=== PATIENT | female | born 1945 | race Caucasian/White ===

== ENCOUNTER 2020-11-06 11:01 | Outpatient (REF) | payer MEDICARE, SELFPAY ==
[2020-11-06 14:07] LABS: Basophils Percent Auto 0.7 % (0-2); Eosinophils Absolute Auto 0.2 X10*3/uL (0.0-0.4); Eosinophils Percent Auto 2.7 % (0-4); Hematocrit 41.5 % (37-47); Hemoglobin 13.2 g/dl (12.0-16.0); Imm Gran Abs Auto 0.01 X10*3/uL (0.00-0.03); Imm Gran Pct Auto 0.2 % (0.0-0.4); Lymphocytes Absolute Auto 1.2 X10*3/uL (1.2-4.9); MANUAL DIFF FLAG NO; Mean Corpuscular HGB Conc 31.8 g/dl (31.0-35.0); Mean Corpuscular Hemoglobin 31.7 pg (27.0-33.0); Mean Corpuscular Volume 99.8 fL (80-98); Mean Platelet Volume 11.7 fL (9.4-12.3); Monocytes Absolute Auto 0.4 X10*3/uL (0.1-1.2); Monocytes Percent Auto 7.8 % (2-11); Neutrophils Absolute Auto 3.8 X10*3/uL (2.0-8.3); Neutrophils Percent Auto 66.6 % (45-73); Platelet Count 201 X10*3/uL (160-400); Red Blood Count 4.16 X10*6/uL (4.20-5.50); Red Cell Distribution Width 13.1 % (11.0-16.0); White Blood Count 5.6 X10*3/uL (4.8-10.8)
[2020-11-06 14:13] LABS: Glucose Urine UA NEG (NEG); Leukocyte Esterase Urine NEG (NEG); Nitrite Urine NEG (NEG); PH 5.5 (5.0-8.0); Specific Gravity - Urine >= 1.030 (1.005-1.025); Urine Blood NEG (NEG); Urine Ketones NEG (NEG); Urine Protein NEG (NEG-TRACE)
[2020-11-06 14:16] LABS: Appearance Urine CLEAR; Color Urine YELLOW
[2020-11-06 14:22] LABS: Mucus Urine 1+ /LPF; RBC Urine 0-2 /HPF (0); WBC Urine 0 /HPF (0-4)
[2020-11-06 14:52] LABS: Alanine Aminotransferase 15 U/L (0-31); Albumin Level 3.9 g/dL (3.5-5.0); Alkaline Phosphatase 69 U/L (39-117); Anion Gap 11 (12-20); Aspartate Amino Transferase 24 U/L (5-31); Bilirubin Total 0.7 mg/dL (0.0-1.0); Blood Urea Nitrogen 27 mg/dL (9-16); Calcium 9.1 mg/dL (8.4-10.2); Carbon Dioxide 29 mmol/L (22-29); Chloride 106 mmol/L (96-108); Cholesterol 198 mg/dL; Estimated Glomerular Filt Rate > 60; Glucose Fasting 95 mg/dL (60-99); HDL Cholesterol 66 mg/dL; LDL Cholesterol Calculated 123 mg/dl; Potassium 4.7 mmol/L (3.3-5.1); Sodium 141 mmol/L (135-145); Total Protein 6.6 g/dL (6.5-8.0); Triglycerides 45 mg/dL
[2020-11-06 15:12] LABS: TSH reflex Free T4 0.86 uIU/mL (0.32-4.0); Vitamin D 25-OH Total 38.2 ng/mL (>30)
[2020-11-06 15:36] LABS: Folate 19.8 ng/mL (> or = 4.0); Vitamin B12 721 pg/mL (200-900)
== END 2020-11-06 11:02 | disposition home or self-care (01) ==
LOC: HO.HMGCLDS 11:01
PROVIDERS: PCP Internal Medicine; Visit Provider Internal Medicine
DX: E78.5 Hyperlipidemia, unspecified (principal); D51.9 Vitamin B12 deficiency anemia, unspecified; I73.00 Raynaud's syndrome without gangrene; D72.819 Decreased white blood cell count, unspecified; J30.9 Allergic rhinitis, unspecified; M51.36 Other intervertebral disc degeneration, lumbar region; M81.0 Age-related osteoporosis without current pathological fracture; I49.3 Ventricular premature depolarization; I49.1 Atrial premature depolarization
CPT/HCPCS: 36415; 80053; 80061; 81001; 82306; 82607; 82746; 84443; 85025

== ENCOUNTER → 2021-01-25 09:25 | Outpatient (BNVA) | payer MEDICARE, SELFPAY | PROVIDERS: PCP Internal Medicine; Referring Provider Internal Medicine; Visit Provider Internal Medicine | DX: I49.3 Ventricular premature depolarization (principal); I49.1 Atrial premature depolarization; Q21.1 Atrial septal defect | CPT/HCPCS: 93005; 99212 ==

== ENCOUNTER 2021-05-13 08:48 | Outpatient (REF) | payer MEDICARE, SELFPAY ==
--- NOTE | ~2021-05-13 | MM_ITS ---
EXAMINATION: MM SCREENING DIGITAL BREAST TOMOSYNTHESIS, BILATERAL CLINICAL INFORMATION: Screening. Asymptomatic. The lifetime risk of breast cancer based on the Tyrer-Cuzick Model is 2.5%. COMPARISON: Mammography: February 24, 2020 and studies dating back to June 30, 2012 TECHNIQUE: Digital breast tomosynthesis is performed in both the craniocaudal and mediolateral oblique views along with computer-aided detection (CAD). Synthesized 2D images are generated from the tomosynthesis. FINDINGS: The breasts are heterogeneously dense, which may obscure small masses (ACR BI-RADS breast composition Category c). There are no significant masses, abnormal calcifications, or other abnormalities. MM/MM tomosynthesis screening BI IMPRESSION: There are no significant changes from prior study. ASSESSMENT: BI-RADS 1: Negative RECOMMENDATION: Routine annual mammography screening. This patient's information was entered into a reminder system with a target due date for their next mammogram.
== END 2021-05-13 08:49 | disposition home or self-care (01) ==
LOC: HO.MAMMO 08:48
PROVIDERS: Visit Provider Internal Medicine
DX: Z12.31 Encounter for screening mammogram for malignant neoplasm of breast (principal)
CPT/HCPCS: 77063; 77067

== ENCOUNTER 2021-11-24 10:34 | Outpatient (REF) | payer MEDICARE, SELFPAY ==
[2021-11-24 11:40] LABS: MANUAL DIFF FLAG NO
[2021-11-24 11:47] LABS: Basophils Percent Auto 0.5 % (0-2); Eosinophils Absolute Auto 0.2 X10*3/uL (0.0-0.4); Eosinophils Percent Auto 4.2 % (0-4); Hematocrit 42.9 % (37.0-47.0); Hemoglobin 13.6 g/dl (12.0-16.0); Imm Gran Abs Auto 0.02 X10*3/uL (0.00-0.03); Imm Gran Pct Auto 0.5 % (0.0-0.4); Lymphocytes Percent Auto 24.1 % (20-40); Mean Corpuscular HGB Conc 31.7 g/dl (31.0-35.0); Mean Corpuscular Hemoglobin 31.4 pg (27.0-33.0); Mean Corpuscular Volume 99.1 fL (80.0-98.0); Mean Platelet Volume 10.7 fL (9.4-12.3); Monocytes Absolute Auto 0.3 X10*3/uL (0.1-1.2); Monocytes Percent Auto 7.4 % (2-11); Neutrophils Absolute Auto 2.7 x10*3/uL (2.0-8.3); Neutrophils Percent Auto 63.3 % (45-73); Platelet Count 214 X10*3/uL (160-400); Red Blood Count 4.33 X10*6/uL (4.20-5.50); Red Cell Distribution Width 13.2 % (11.0-16.0); White Blood Count 4.3 X10*3/uL (4.8-10.8)
[2021-11-24 12:20] LABS: TSH reflex Free T4 1.75 uIU/mL (0.32-4.0); Vitamin D 25-OH Total 32.2 ng/mL (>30)
[2021-11-24 12:30] LABS: Alanine Aminotransferase 19 U/L (0-31); Albumin Level 3.8 g/dL (3.5-5.0); Alkaline Phosphatase 61 U/L (39-117); Anion Gap 11 (12-20); Aspartate Amino Transferase 21 U/L (5-31); Bilirubin Total 0.4 mg/dL (0.0-1.0); Blood Urea Nitrogen 28 mg/dL (9-16); Calcium 9.3 mg/dL (8.4-10.2); Carbon Dioxide 29 mmol/L (22-29); Chloride 107 mmol/L (96-108); Cholesterol 217 mg/dL; Estimated Glomerular Filt Rate > 60; Glucose Fasting 101 mg/dL (60-99); HDL Cholesterol 67 mg/dL; LDL Cholesterol Calculated 144 mg/dl; Potassium 4.6 mmol/L (3.3-5.1); Sodium 142 mmol/L (135-145); Total Protein 6.8 g/dL (6.5-8.0); Triglycerides 33 mg/dL
[2021-11-24 12:38] LABS: Folate > 20.0 ng/mL (> or = 4.0); Vitamin B12 735 pg/mL (200-900)
[2021-11-24 14:09] LABS: Appearance Urine CLOUDY; Color Urine YELLOW; Glucose Urine UA NEG (NEG); Leukocyte Esterase Urine NEG (NEG); Nitrite Urine NEG (NEG); PH 5.5 (5.0-8.0); Specific Gravity - Urine >= 1.030 (1.005-1.025); Urine Blood NEG (NEG); Urine Ketones NEG (NEG); Urine Protein NEG (NEG-TRACE)
== END 2021-11-24 10:35 | disposition home or self-care (01) ==
LOC: HO.HMGCLDS 10:34
PROVIDERS: PCP Internal Medicine; Visit Provider Internal Medicine
DX: Z00.00 Encounter for general adult medical examination without abnormal findings (principal); E78.00 Pure hypercholesterolemia, unspecified; I10 Essential (primary) hypertension; E53.8 Deficiency of other specified B group vitamins; E55.9 Vitamin D deficiency, unspecified
CPT/HCPCS: 36415; 80053; 80061; 81003; 82306; 82607; 82746; 84443; 85025

== ENCOUNTER 2021-12-31 12:22 | Outpatient (REF) | payer MEDICARE, SELFPAY ==
--- NOTE | 2021-12-31 15:32 | MHC.AU.AEV ---
Adult Audiological Evaluation Date of Visit: 12/31/21 Reason for Appointment: Audiological evaluation due to concern for decreased hearing. Ms. Parish reports difficulties hearing and understanding speech in most situations. She notes that she has previously been diagnosed with a hearing loss and obtained hearing aids six or seven years ago. She notes that she hasn't used her hearing aids in a while and felt they weren't working well. She notes intermittent tinnitus which she describes as a whooshing sound that she notices several times a week. She notes that her ears feel blocked/full, which she feels may be related to her seasonal allergies. She notes occasional dizziness and feelings of being off-balance. Ms. 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 She notes that when uses hearing protection now when she uses power tools, cuts trees, or mows the lawn. Does patient feel they have a hearing loss?: Yes If Yes, Which Ear?: Both Ears When Was Hearing Difficulty First Noticed?: ~10 years ago Has hearing been tested previously?: Yes Previous Hearing Test Results: Patient believes that she was previously tested here, though records could not be located today. She has also had testing done at [facility] in [place], where she received her previous hearing aids. 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 Medical History: Medical History: Dizziness/Unsteadiness, Headache, Heart Problems, Measles, Migraines, Complete hysterectomy in 1995, Chronic leukopenia, Lumbar degenerative disc disease, Osteoporosis, Patent foramen ovale with atrial septal aneurysm, Premature atrial contractions, Premature ventricular contractions (PVCs), Pure hypercholesterolemia, Raynaud's syndrome, Vitamin B12 deficiency anemia, Vitamin D deficiency Allergies: Seasonal allergies Medication List: Aspirin, Vitamin D3, Vitamin B12, Metoprolol succinate, Tylenol, Clobetasol propionate ointment, estradiol cream Hearing Instrument History- Right/Left Ear: Audibel hearing aids obtained at [facility] in [place] six or seven years ago Otoscopy: Right Ear: Unremarkable Left Ear: Unremarkable Tympanometry: Tympanometry performed due to: To assess integrity of the middle ear system Right Ear: Normal Middle Ear System (Type A) Left Ear: Normal Middle Ear System (Type A) Hearing Evaluation: Transducer(s) Used: Insert Earphones, Bone Conduction Method: Conventional Audiometry Stimuli Used: Pure Tones Right Ear: Description of Hearing: Moderate to moderately-severe sensorineural hearing loss from 250-8000 Hz. Left Ear: Description of Hearing: Moderate to moderately-severe sensorineural hearing loss from 250-8000 Hz. Left ear slightly worse than the right by 15 dBHL at 4000 Hz and 10 dBHL at 6000 Hz. Speech Recognition Threshold (SRT): Method Used: Monitored Live Voice Stimuli Used: Spondee Words Right Ear: 45 dBHL Left Ear: 45 dBHL Interpretation of Results: Today's evaluation indicates moderate to moderately-severe sensorineural hearing loss bilaterally. Hearing loss of this degree is likely to impact communication, especially in adverse listening environments such as in background noise or at a distance. Ms. Parish would likely benefit from binaural amplification. Recommendations: Audiological re-evaluation in one year. Trial with amplification is recommended. Recommend Ms. Parish contact her health insurance company to determine if they offer any hearing aid coverage. Discussed hearing aids briefly. Welcomed to return for a hearing aid consultation if she decides she would like to pursue new hearing aids through our clinic. Diagnosis: Primary Diagnosis: H90.3 Bilateral Sensorineural Hearing Loss Services Performed: Comprehensive Audiological Evaluation (CPT 52974) Tympanometry (CPT 92460) Signature: Provider: Swetha Giraldo, [facility]
== END 2021-12-31 12:23 | disposition home or self-care (01) ==
LOC: HO.SH 12:22
PROVIDERS: Visit Provider Nurse Practitioner Family
DX: Z01.118 Encounter for examination of ears and hearing with other abnormal findings (principal); H90.3 Sensorineural hearing loss, bilateral
CPT/HCPCS: 92557; 92567

== ENCOUNTER 2022-01-13 12:35 | Outpatient (REF) | payer SELFPAY ==
--- NOTE | 2022-01-21 10:19 | MHC.AU.HAS ---
Hearing Aid Evaluation Date of Visit: 01/13/22 Historical Information: Description of Hearing: Moderate to moderately-severe sensorineural hearing loss bilaterally Summary: Patient is interested in pursuing hearing aids. She was seen at our clinic recently for an audiological evaluation on 12/31/2021. Hearing aid options were discussed. She would like a rechargeable product. She is also interested in Bluetooth capability and use of an new. Hearing Aid Prescription: Based on the individual?s shared listening needs, communication environments, dexterity, desire for connectivity, and personal preferences, the following prescription for amplification has been made: Right ear: Bioinformatics Software Engineer: ReSound Model: One 7 KAREN Battery Size: Rechargeable Color: Gold Stylist Apprentice: 1 MP Left ear: Bioinformatics Software Engineer: ReSound Model: One 7 KAREN Battery Size: Rechargeable Color: Gold Stylist Apprentice: 1 MP Action Taken/Action Needed: Hearing Instrument Fitting to be scheduled when materials arrive Primary Diagnosis: H90.3 Bilateral Sensorineural Hearing Loss Signature: Provider: Swetha Min, CCC-A
== END 2022-01-13 12:36 | disposition home or self-care (01) ==
LOC: HO.HAP 12:35
PROVIDERS: Visit Provider Internal Medicine
DX: Z46.1 Encounter for fitting and adjustment of hearing aid (principal); H90.3 Sensorineural hearing loss, bilateral
CPT/HCPCS: 92590; 92591

== ENCOUNTER 2022-02-24 12:38 | Outpatient (REF) | payer SELFPAY ==
--- NOTE | 2022-03-02 08:19 | MHC.AU.HFA ---
Hearing Instrument Fitting- Adult- Binaural Date of Visit: 02/24/22 Hearing Instruments Dispensed: Right Ear: Guest Service Supervisor: ReSound Model: One 7 [id number] KAREN Serial Number: [id number] Repair Warranty: 02/21/2025 Loss and Damage Warranty: 02/21/2025 Battery Size: Rechargeable Color: Gold Roads Superintendent: 1 MP Type of Dome: Small Open Left Ear: Guest Service Supervisor: ReSound Model: One 7 [id number] KAREN Serial Number: [id number] Repair Warranty: 02/21/2025 Loss and Damage Warranty: 02/21/2025 Battery Size: Rechargeable Color: Gold Roads Superintendent: 1 MP Type of Dome: Small Open Summary of Fitting: Feedback calibration run. Verifit performed and levels adjusted to better reach targets. Patient initially thought her voice was tinny. Lowered overall gain by 3 steps. Patient was pleased with the sound of the instruments. The patient has sharp bends to her ear canals, which point upward. It is difficult to maneuver the receivers into place. Impressions were taken bilaterally to try custom molds. Hearing aid care and maintenance were discussed and practiced. Hearing aids were paired to her phone. Patient was unable to download the new as she had forgotten her Apple password. She will look into her password at home, so we can download the new at the next visit. Recommendations: Patient has a hearing aid follow-up scheduled for 03/25/22. If the molds are not ready by then, we can ask the patient if she would still like to come in for the follow-up to address any other concerns, or if she would like to wait until Diagnosis Code(s): Primary Diagnosis: H90.3 Bilateral Sensorineural Hearing Loss Signature: Provider: Swetha Min, CCC-A
== END 2022-02-24 12:39 | disposition home or self-care (01) ==
LOC: HO.HAP 12:38
PROVIDERS: Visit Provider Internal Medicine
DX: Z46.1 Encounter for fitting and adjustment of hearing aid (principal); H90.3 Sensorineural hearing loss, bilateral
CPT/HCPCS: V5261; V5299

== ENCOUNTER → 2022-03-23 14:21 | Outpatient (BNVA) | payer MEDICARE, SELFPAY | PROVIDERS: PCP Internal Medicine; Visit Provider Internal Medicine | DX: I49.3 Ventricular premature depolarization (principal); I49.1 Atrial premature depolarization; Q21.1 Atrial septal defect | CPT/HCPCS: 93005; 99212 ==

== ENCOUNTER 2022-03-25 13:52 | Outpatient (REF) | payer MEDICARE, SELFPAY | END 2022-03-25 13:53 | disposition home or self-care (01) | LOC: HO.HAP 13:52 | PROVIDERS: Visit Provider Internal Medicine | DX: Z13.89 Encounter for screening for other disorder (principal) ==

== ENCOUNTER 2022-05-09 13:22 | Outpatient (REF) | payer SELFPAY ==
--- NOTE | 2022-05-09 14:25 | MHC.AU.HFU ---
Hearing Instrument Follow-Up- Binaural Date of Visit: 05/09/22 Right Ear: ReSound One 7 [id number] KAREN SN: [id number] Color: Gold Repair Warranty: 02/21/2025 Loss and Damage Warranty: 02/21/2025 Battery Size: Rechargeable Reservoir Engineering Manager: 1 MP Type of Mold: ReSound Slim Tip soft earmold with canal lock SN: [id number] Myra: 09/26/2022 Dispensed By: [facility] Date of Fittin02/24/2022 Left Ear: ReSound One 7 [id number] KAREN SN: [id number] Color: Gold Repair Warranty: 02/21/2025 Loss and Damage Warranty: 02/21/2025 Battery Size: Rechargeable Reservoir Engineering Manager: 1 MP Type of Mold: ReSound Slim Tip soft earmold with canal lock SN: [id number] Myra: 09/26/2022 Dispensed By: [facility] Date of Fittin02/24/2022 Follow-Up Summary: 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 Comfortable with no feedback in office. Bonny noted that the ear molds felt full in her ears but is motivated to acclimate to the physical change. She had some difficulty fully inserting the ear molds but did better with practice. Explained how to clean the ear molds and reviewed changing the wax guard. Advised of warranty period and to call if problems with comfort, fit, or retention arise. Recommendations: Hearing instrument maintenance in 6 months, or sooner if needed. Please contact our clinic with any questions or concerns. Diagnosis Code(s): Primary Diagnosis: H90.3 Bilateral Sensorineural Hearing Loss Signature: Provider: Rowena Chery, [facility]
== END 2022-05-09 13:23 | disposition home or self-care (01) ==
LOC: HO.HAP 13:22
PROVIDERS: Visit Provider Internal Medicine
DX: Z13.89 Encounter for screening for other disorder (principal)

== ENCOUNTER 2022-05-17 14:07 | Outpatient (REF) | payer MEDICARE, SELFPAY ==
--- NOTE | ~2022-05-17 | MM_ITS ---
EXAMINATION: MM SCREENING DIGITAL BREAST TOMOSYNTHESIS, BILATERAL CLINICAL INFORMATION: Screening. Asymptomatic. The lifetime risk of breast cancer based on the Tyrer-Cuzick Model is 3.6%. COMPARISON: Mammography: May 13, 2021 and studies dating back to September 29, 2015 TECHNIQUE: Digital breast tomosynthesis is performed in both the craniocaudal and mediolateral oblique views along with computer-aided detection (CAD). Synthesized 2D images are generated from the tomosynthesis. FINDINGS: The breasts are heterogeneously dense, which may obscure small masses (ACR BI-RADS breast composition Category c). There are no significant masses, abnormal calcifications, or other abnormalities. MM/MM tomosynthesis screening BI IMPRESSION: No significant changes ASSESSMENT: BI-RADS 1: Negative RECOMMENDATION: Routine annual mammography screening. This patient's information was entered into a reminder system with a target due date for their next mammogram.
== END 2022-05-17 14:08 | disposition home or self-care (01) ==
LOC: HO.MAMMO 14:07
PROVIDERS: PCP Internal Medicine; Visit Provider Internal Medicine
DX: Z12.31 Encounter for screening mammogram for malignant neoplasm of breast (principal)
CPT/HCPCS: 77063; 77067

== ENCOUNTER 2022-05-30 13:23 | Outpatient (REF) | payer SELFPAY ==
--- NOTE | 2022-05-30 14:24 | MHC.AU.HFU ---
Hearing Instrument Follow-Up- Binaural Date of Visit: 05/30/22 Right Ear: ReSound One 7 [id number] KAREN SN: [id number] Color: Gold Repair Warranty: 02/21/2025 Loss and Damage Warranty: 02/21/2025 Battery Size: Rechargeable Registered Pharmacy Technician: 1 MP Type of Mold: ReSound Slim Tip soft earmold with canal lock SN: [id number] Myra: 09/26/2022 Dispensed By: [facility] Date of Fittin02/24/2022 Left Ear: ReSound One 7 [id number] KAREN SN: [id number] Color: Gold Repair Warranty: 02/21/2025 Loss and Damage Warranty: 02/21/2025 Battery Size: Rechargeable Registered Pharmacy Technician: 1 MP Type of Mold: ReSound Slim Tip soft earmold with canal lock SN: [id number] Myra: 09/26/2022 Dispensed By: [facility] Date of Fittin02/24/2022 Follow-Up Summary: Bonny reported that she has been having difficulty inserting the right ear mold. She is never confident that it is in properly. Practiced insertion in office and able to successfully insert both ear molds. Bonny noted that the overall comfort of the molds as well as sound quality are good; however, she has some concerns as the ear molds feel martínez in her ears compared to the domes. Advised remake warranty until 09/26/2022 if issues with fit or comfort arise and discussed switching back to domes. Bonny reported that she wants to try to continue to acclimate to feeling of the molds for now. Also re-paired the hearing aids to her cell phone at her request as they somehow became disconnected. Recommendations: Bonny will call if problems with the ear molds persist. Diagnosis Code(s): Primary Diagnosis: H90.3 Bilateral Sensorineural Hearing Loss Signature: Provider: Rowena Chery, [facility]
== END 2022-05-30 13:24 | disposition home or self-care (01) ==
LOC: HO.HAP 13:23
PROVIDERS: Visit Provider Internal Medicine
DX: Z13.89 Encounter for screening for other disorder (principal)

== ENCOUNTER 2022-11-28 12:05 | Outpatient (REF) | payer MEDICARE, SELFPAY ==
[2022-11-28 13:52] LABS: MANUAL DIFF FLAG NO
[2022-11-28 13:54] LABS: Appearance Urine Clear; Color Urine Yellow; Glucose Urine UA Negative (Negative); Leukocyte Esterase Urine Trace (Negative); Nitrite Urine Negative (Negative); PH 5.5 (5.0-9.0); UMIC TRIGGER UACC YES; Urine Blood Negative (Negative); Urine Ketones Negative (Negative); Urine Protein Negative (Neg-Trace)
[2022-11-28 13:58] LABS: Bacteria Urine None Seen (None Seen); Hyaline Casts Urine 0-2 /LPF (0-2); Squamous Epithelial Cell Urine 0-2 /HPF (0-2); WBC Urine 0-5 /HPF (0-5)
[2022-11-28 13:58] LABS: Basophils Percent Auto 0.9 % (0-2); Eosinophils Absolute Auto 0.1 X10*3/uL (0.0-0.4); Eosinophils Percent Auto 3.3 % (0-4); Hematocrit 41.6 % (37.0-47.0); Hemoglobin 13.1 g/dl (12.0-16.0); Imm Gran Abs Auto 0.01 X10*3/uL (0.00-0.03); Imm Gran Pct Auto 0.2 % (0.0-0.4); Lymphocytes Absolute Auto 1.1 X10*3/uL (1.2-4.9); Lymphocytes Percent Auto 26.3 % (20-40); Mean Corpuscular HGB Conc 31.5 g/dl (31.0-35.0); Mean Corpuscular Hemoglobin 31.6 pg (27.0-33.0); Mean Corpuscular Volume 100.5 fL (80.0-98.0); Mean Platelet Volume 10.7 fL (9.4-12.3); Monocytes Absolute Auto 0.4 X10*3/uL (0.1-1.2); Monocytes Percent Auto 8.2 % (2-11); Neutrophils Absolute Auto 2.6 x10*3/uL (2.0-8.3); Neutrophils Percent Auto 61.1 % (45-73); Platelet Count 211 X10*3/uL (160-400); Red Blood Count 4.14 X10*6/uL (4.20-5.50); Red Cell Distribution Width 13.3 % (11.0-16.0); White Blood Count 4.3 X10*3/uL (4.8-10.8)
[2022-11-28 14:13] LABS: Alanine Aminotransferase 28 U/L (0-31); Albumin Level 3.7 g/dL (3.5-5.0); Alkaline Phosphatase 56 U/L (39-117); Anion Gap 9 (12-20); Aspartate Amino Transferase 27 U/L (5-31); Bilirubin Total 0.5 mg/dL (0.0-1.0); Blood Urea Nitrogen 21 mg/dL (9-16); Carbon Dioxide 28 mmol/L (22-29); Chloride 108 mmol/L (96-108); Cholesterol 219 mg/dL; Estimated Glomerular Filt Rate > 60; Glucose Fasting 94 mg/dL (60-99); HDL Cholesterol 65 mg/dL; LDL Cholesterol Calculated 147 mg/dl; Magnesium 2.2 mg/dL (1.6-2.6); Potassium 4.1 mmol/L (3.3-5.1); Sodium 141 mmol/L (135-145); Total Protein 6.2 g/dL (6.5-8.0); Triglycerides 39 mg/dL
[2022-11-28 14:43] LABS: TSH reflex Free T4 1.62 uIU/mL (0.32-4.0); Vitamin B12 1087 pg/mL (200-900); Vitamin D 25-OH Total 39.6 ng/mL (>30)
== END 2022-11-28 12:06 | disposition home or self-care (01) ==
LOC: HO.HMGCLDS 12:05
PROVIDERS: PCP Internal Medicine; Visit Provider Internal Medicine
DX: E78.00 Pure hypercholesterolemia, unspecified (principal); E83.42 Hypomagnesemia; E55.9 Vitamin D deficiency, unspecified; I10 Essential (primary) hypertension; E53.8 Deficiency of other specified B group vitamins; R30.0 Dysuria
CPT/HCPCS: 36415; 80053; 80061; 81001; 82306; 82607; 82746; 83735; 84443; 85025

== ENCOUNTER 2022-12-28 08:59 | Outpatient (REF) | payer MEDICARE, SELFPAY ==
--- NOTE | ~2022-12-28 | MM_ITS ---
EXAMINATION: BONE DENSITOMETRY CLINICAL INDICATION: Menopause. COMPARISON: Previous BD dated 07/25/2019 and baseline BD dated 03/10/2008. TECHNIQUE: Using a [employer] DXA System (software version: 13.1) manufactured by [employer], dual-energy x-ray absorptiometry was performed of the lumbar spine and left hip. The images are of good technical quality. Summary results are attached. FINDINGS: AP SPINE L1-L3 (excluding L4): The data of L1-L4 has been changed to exclude the L4 vertebral body, because degenerative changes at this level may cause overestimation of lumbar spine density. Current: BMD 0.818 g/cm2, Z-score -0.7, T-score -2.9, osteoporosis, 10.6% decrease from previous, 28.7% decrease from baseline (<5% change is not significant). Prior: BMD 0.915 g/cm2. Baseline: BMD 1.148 g/cm2. LEFT FEMUR, NECK: Current: BMD 0.655 g/cm2, Z-score -0.5, T-score -2.8, osteoporosis. Prior: BMD 0.698 g/cm2. Baseline: BMD 0.795 g/cm2. LEFT FEMUR, TOTAL: Current: BMD 0.563 g/cm2, Z-score -1.4, T-score -3.5, osteoporosis, 6.9% decrease from previous, 25.5% decrease from baseline (<5% change is not significant). Prior: BMD 0.605 g/cm2. Baseline: BMD 0.756 g/cm2. IDENTIFIED RISK FACTORS: Early menopause, height loss, hysterectomy, bilateral oophorectomy, low calcium intake, secondary osteoporosis. HISTORY OF FRACTURE: None listed. MEDICATIONS: Vitamin D. MM/XR DEXA axial skeleton IMPRESSION: 1. DIAGNOSIS: Osteoporosis based on the lowest T-score value of -3.5 in the total femur applying World Health Organization criteria. 2. 10-YEAR FRACTURE RISK PREDICTION, FRAX: According to the guidelines, FRAX calculation should only be performed on patients in the osteopenia bone density category. Therefore, FRAX was not performed on this patient. 3. Treatment Recommendations: NOF guidelines recommend consideration for treatment in postmenopausal women and men age 50 and older presenting with the following: -A hip or vertebral (clinical or morphometric) fracture. -T-score less than or equal to -2.5 at the femoral neck or spine after appropriate evaluation to exclude secondary causes. -Low bone mass at the hip or spine and a 10-year fracture probability by FRAX of greater than or equal to 3% for hip fracture or greater than or equal to 20% for major osteoporotic fracture based on the [place] adapted WHO algorithm. 4. Other Recommendations: All treatment decisions require clinical judgment and consideration of individual patient factors, including patient preferences, comorbidities, previous drug use, risk factors not captured in the FRAX model (e.g. frailty, falls, vitamin D deficiency, increased bone turnover, interval significant decline in bone density) and possible under or overestimation of fracture risk by FRAX. Additional medical evaluation for secondary cause of low bone mineral density may be appropriate. FUTURE SCAN RECOMMENDATION: People with diagnosed cases of osteoporosis or at high risk for fracture should have regular bone mineral density tests. For patients eligible for Medicare, routine testing is allowed once every 2 years. The testing frequency can be increased to one year for patients who have rapidly progressing disease, those who are receiving or discontinuing medical therapy to restore bone mass, or have additional risk factors.
== END 2022-12-28 09:00 | disposition home or self-care (01) ==
LOC: HO.MAMMO 08:59
PROVIDERS: PCP Internal Medicine; Visit Provider Internal Medicine
DX: M81.0 Age-related osteoporosis without current pathological fracture (principal); Z78.0 Asymptomatic menopausal state
CPT/HCPCS: 77080

== ENCOUNTER → 2023-03-13 08:13 | Outpatient (REF) | payer MEDICARE, SELFPAY ==
--- NOTE | 2023-03-13 08:16 | HM_ITS ---
* Total monitoring time about 3 days. * Underlying rhythm is sinus. Average ventricular rate 71/Min. Range 54 to 107/Min. * Rare supraventricular ectopy with low burden. * Extremely rare ventricular ectopy. * No significant pauses or AV blocks. * No patient markers are events in diary. MTDD
== END ==
LOC: HO.CARD 08:13
PROVIDERS: PCP Internal Medicine; Visit Provider Internal Medicine
DX: I49.3 Ventricular premature depolarization (principal)
CPT/HCPCS: 93242

== ENCOUNTER → 2023-03-13 08:16 | Outpatient (BNV) | payer MEDICARE, SELFPAY | PROVIDERS: PCP Internal Medicine; Visit Provider Internal Medicine | DX: I47.1 Supraventricular tachycardia (principal) | CPT/HCPCS: 93244 ==

== ENCOUNTER 2023-03-29 14:01 | Outpatient (AMB) | payer MEDICARE, SELFPAY ==
[2023-03-29 14:08] VITALS: BP 106/64; PULSE 66; BMI 18.6
--- NOTE | 2023-03-29 14:08 | A.OFFVIS_ITS ---
Intake Vital Signs 03/29/23 14:08 Height 5 ft 4 in Weight 108 lb 7.479 oz BMI 18.6 BP 106/64 Blood Pressure Location Lt brachial Position Sitting Pulse 66 Intake Visit Reasons: 1 year follow up, after holter monitor Intake Note: 1 year follow up w/ EKG Research Spec Required: No Accompanied by: Self / Same As Patient Allergies No Known Allergies Allergy (Verified 03/29/23 14:10) Medication List - Last Reconciled 03/29/23 by Robbie Meeks MD acetaminophen 500 mg PO Q6H PRN alendronate 70 mg PO QWEEK aspirin 81 mg PO DAILY cholecalciferol (vitamin D3) 25 mcg PO DAILY clobetasol 0.05% 1 appl topical DAILY estradiol 0.01%(0.1mg/gram) 1 g vaginal 2XW metoprolol succinate ER 25 mg PO DAILY HPI HPI Comments History of Present Illness Details Bonny returns for follow-up regarding palpitations. In the past, she had bigeminy based on EKG from a local urgent care. She is on a small dose of beta-blockers and has been doing well. Since last seen, she has not had any palpitations or chest pain or shortness of breath or in fact anything cardiac sounding. COUNTS INCLUDE 234 BEDS AT THE [facility] Medical History Allergic rhinitis Chronic leukopenia Lumbar degenerative disc disease Normal colonoscopy (~11/06/18) Osteoporosis Patent foramen ovale with atrial septal aneurysm Premature atrial contractions Premature ventricular contractions (PVCs) (VPCs) Pure hypercholesterolemia Raynaud's syndrome Vitamin B12 deficiency anemia Vitamin D deficiency Surgical History History of total hysterectomy History of removal of cyst History of hand surgery Family History Father No problems noted. Mother No problems noted. Social History Housing: House Alcohol intake: former Patient Tobacco Use Status: Never used Tobacco e-Cigarette/Vaping Use: Never Used Second Hand Smoke Exposure: No service: No Current occupational status: retired Cognitive needs: No Hearing needs: No Vision needs: No Review of Systems Const Denies chills, Denies fatigue, Denies fever(s), Denies frequent falls, Denies weakness, Denies weight gain and Denies weight loss ENT Denies dizziness Card Denies chest pain, Denies leg edema, Denies lightheadedness, Denies palpitations, Denies dyspnea, Denies dyspnea on exertion, Denies orthopnea and Denies other (Loss of consciousness) Resp Denies cough, Denies dyspnea and Denies dyspnea on exertion GI Denies hematochezia and Denies change in bowel habits Musc Denies abnormal gait, Denies muscle weakness, Denies numbness, Denies radiating pain into limb and Denies tingling Neuro Denies abnormal gait, Denies dizziness, Denies frequent falls, Denies numbness, Denies tingling and Denies weakness Endo Denies fatigue and Denies palpitations Physical Exam Vital Signs: Last Vital Signs Pulse 66 03/29/23 14:08 BP 106/64 03/29/23 14:08 BMI result Body Mass Index 18.6 Const General: comfortable and no acute distress Orientation/consciousness: patient oriented x3 HEENT Other: Unremarkable Head: Yes normal to inspection Neck Neck: Yes normal visual inspection Chest Chest palpation & inspection: normal inspection of the chest Resp Auscultation: clear to auscultation bilaterally Cardio Palpation: normal PMI Heart sounds: S1 normal heart sound present, S2 normal heart sound present, no gallops, no murmurs and no rubs GI Palpation (GI): Soft to palpation Back/Spine/Pelvis Other: unremarkable Skin General skin exam: no rashes or lesions noted Neuro General: patient oriented x3 Extrem General: Yes normal to inspection Psych Mental Status: mental status grossly normal Office Procedures EKG Details: EKG with sinus rhythm at 66/Min; premature supraventricular complexes with possible aberrant conduction; [place]. [id number], Complete Assessment & Plan Assessment & Plan (1) Premature ventricular contractions (PVCs) (VPCs): Code(s): I49.3 - Ventricular premature depolarization (2) Premature atrial contractions: Code(s): I49.1 - Atrial premature depolarization (3) Patent foramen ovale with atrial septal aneurysm: Code(s): Q21.1 - Atrial septal defect Plan Cardiac studies reviewed. Echocardiogram 2019 with normal LVEF, normal diastolic function; no significant valvular pathology; interatrial septal aneurysm with patent foramen ovale/right to left shunt. Myocardial perfusion imaging study 2018 shows normal perfusion. Cardiac event monitoring showed evidence of underlying sinus rhythm, premature atrial as well as ventricular contractions and very short runs of NSVT. Holter had shown isolated supraventricular ventricular ectopy. Most recent Holter also shows underlying sinus rhythm with very rare ectopy. Overall, may continue beta-blockers without changes with regard to the ectopy. With regard to the atrial septal aneurysm and PFO, can remain on low-dose aspirin. She will call us with ongoing concerns. Medications: Changed From alendronate To be taken first thing in the morning on an empty stomach with a full glass of water; patient has to stay upright for at least the next 30 minutes and should not eat or drink anything else for 30 to 60 minutes after taking the medication 70 mg PO QWEEK 13 tabs 1RF 3 months To alendronate To be taken first thing in the morning on an empty stomach with a full glass of water; patient has to stay upright for at least the next 30 minutes and should not eat or drink anything else for 30 to 60 minutes after taking the medication 70 mg PO QWEEK Coding Level of Care Code Est Pt Level 3 (43805) Diagnoses Premature ventricular contractions (PVCs) (VPCs) I49.3 Premature atrial contractions I49.1 Patent foramen ovale with atrial septal aneurysm Q21.1 CPT Codes EKG - CPT: 19205-[id number], Complete ([id number])
== END 2023-03-29 14:41 | disposition home or self-care (01) ==
PROVIDERS: PCP Internal Medicine; Referring Provider Internal Medicine; Visit Provider Internal Medicine
DX: I49.3 Ventricular premature depolarization (principal); I49.1 Atrial premature depolarization; Q21.10 Atrial septal defect, unspecified
CPT/HCPCS: 93010; 99213

== ENCOUNTER → 2023-03-29 14:01 | Outpatient (BNVA) | payer MEDICARE, SELFPAY | PROVIDERS: PCP Internal Medicine; Referring Provider Internal Medicine; Visit Provider Internal Medicine | DX: I49.3 Ventricular premature depolarization (principal); I49.1 Atrial premature depolarization; Q21.10 Atrial septal defect, unspecified; Q21.12 Patent foramen ovale | CPT/HCPCS: 93005; 99212 ==

== ENCOUNTER 2023-06-13 14:17 | Outpatient (AMB) | payer MEDICARE, SELFPAY ==
[2023-06-13 14:20] VITALS: BP 100/68; PULSE 72; O2SAT 96; BMI 18.4
--- NOTE | 2023-06-13 14:20 | A.OFFPC_ITS ---
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 Accompanied by: Self / Same As Patient Allergies No Known Allergies Allergy (Verified 06/13/23 15:25) Medication List - Last Reconciled 06/13/23 by Elie Eid MD acetaminophen 500 mg PO Q6H PRN alendronate 70 mg PO QWEEK aspirin 81 mg PO DAILY cholecalciferol (vitamin D3) 25 mcg PO DAILY clobetasol 0.05% 1 appl topical DAILY estradiol 0.01%(0.1mg/gram) 1 g vaginal 2XW metoprolol succinate ER 25 mg PO DAILY Tobacco use date assessed: 06/13/23 Fall risk assessment: No Falls in past year Last assessed Fall Risk: 06/13/23 Dental Screening Dental Screen Date: 06/13/23 Did you have a dental visit in the last 12 months?: Yes Did you have a dental problem in the last 6 months where you did not have access to dental care?: No Was dental information given to patient?: Patient has dentist HPI osteoporosis, hyperlipidemia, PACs HPI Details Patient comes in today for her follow up visit States that she currently feels okay Was started on Alendronate back in late December 2022 and she has been tolerating her Rx well Was referred to Dr. Paz for endocrinology consultation and states that she had some additional work ups as well as a 24-hour urine collection done recently and will be seeing Dr. Paz again in July 2023 for her next follow up visit with him She denies any headaches or dizziness Denies any chest pains, no SOB No nausea/vomiting, no abdominal pain No change in bowel habits noted She was also seen by caridology for follow up a couple of months ago and was advised to just follow up with them on an as needed basis from now on [facility] Medical History Allergic rhinitis Chronic leukopenia Vitamin B12 deficiency anemia Raynaud's syndrome Vitamin D deficiency Osteoporosis Lumbar degenerative disc disease Patent foramen ovale with atrial septal aneurysm Premature atrial contractions Premature ventricular contractions (PVCs) (VPCs) Pure hypercholesterolemia Normal colonoscopy (~11/06/18) Surgical History History of total hysterectomy History of removal of cyst History of hand surgery Family History Father No problems noted. Mother No problems noted. Social History Housing: House Alcohol intake: former Patient Tobacco Use Status: Never used Tobacco e-Cigarette/Vaping Use: Never Used Second Hand Smoke Exposure: No service: No Current occupational status: retired Cognitive needs: No Hearing needs: No Vision needs: No Questionnaire PHQ-9 Over the last 2 weeks, how often have you been bothered by any of the following problems? 1. Little interest or pleasure in doing things: not at all 2. Feeling down, depressed, or hopeless: not at all 3. Trouble falling or staying asleep, or sleeping too much: not at all 4. Feeling tired or having little energy: not at all 5. Poor appetite or overeating: not at all 6. Feeling bad about yourself - or that you are a failure or have let yourself or your family down: not at all 7. Trouble concentrating on things, such as reading the newspaper or watching television: not at all 8. Moving or speaking so slowly that other people could have noticed. Or the opposite - being so fidgety or restless that you have been moving around a lot more than usual: not at all 9. Thoughts that you would be better off or of hurting yourself in some way: not at all Total score: 0 Depression Screening Interpretation: Negative Depression Screening Done: Yes 65731 - PHQ-9 Billing: Yes Source: Developed by Drs. Gilles Chavez, Amber Villanueva, Dorian Geronimo and colleagues, with an educational magali from [employer]. Thrive Questionnaire Date Thrive assessed: 06/13/23 I am a: Patient What is your living situation today?: I have a steady place to live Within the past 12 months, did the food you bought not last and you didn't have the money to get more?: Never true Within the past 12 months, did you worry whether your food would run out before you got money to buy more?: Never true Do you have trouble paying for medicines?: No Do you have trouble getting transportation to medical appointments?: No Do you have trouble paying your heating and electricity bill?: No Do you have trouble taking care of your child, family member or friend?: No Do you have trouble with day-to-day activities such as bathing, preparing meals, shopping, managing finances, etc.?: No Are you currently unemployed and looking for a job?: No Are you interested in more education?: No Please select the resources that you would like help with: None Currently or been in a relationship where the following occur: no concerns reported AUDIT C Alcohol Use Questionnaire (AUDIT-C) 1. How often do you have a drink containing alcohol?: Never Total Score: 0 Score Reviewed/Action Taken: Yes TONY-7 AMB Questionnaire TONY-7 Date TONY - 7 assessed: 06/13/23 Feeling nervous, anxious, or on edge: 0 = Not at all Not being able to stop or control worryin = Not at all Worrying too much about different things: 0 = Not at all Trouble relaxin = Not at all Being so restless that it is hard to sit still: 0 = Not at all Becoming easily annoyed or irritable: 0 = Not at all Feeling afraid as if something awful might happen: 0 = Not at all Total TONY-7 score (0-4 normal; 5-9 mild; 10-14 moderate; 15-21 severe): 0 Source: Developed by Drs. Gilles Chavez, Amber Villanueva, Dorian Geronimo and colleagues, with an educational magali from [employer]. Review of Systems Const Denies chills, Denies fatigue, Denies fever(s) and Denies headache(s) ENT Denies dysphagia, Denies dizziness, Denies otalgia, Denies headache(s), Denies neck pain, Denies odynophagia and Denies sore throat Card Denies chest pain, Denies rapid heart rate, Denies irregular heart rhythm, Denies palpitations and Denies dyspnea Resp Denies cough, Denies dyspnea and Denies wheezing GI Denies abdominal pain, Denies constipation, Denies dysphagia, Denies heartburn, Denies diarrhea, Denies nausea, Denies odynophagia and Denies vomiting Denies hematuria, Denies urinary frequency, Denies dysuria, Denies urinary incontinence and Denies urinary urgency Musc Reports back pain (on and off over the lower back), Denies arthralgias and Denies neck pain Skin/Breast Denies rash Neuro Denies dizziness, Denies headache(s) and Denies paresthesias Psych Denies anxiety and Denies depression Endo Denies fatigue and Denies palpitations Tenzin/Lymph Denies easy bruising Aller/Immun Denies wheezing Physical exam (Primary Care) Vital Signs: Last Vital Signs Pulse 72 06/13/23 14:20 BP 100/68 06/13/23 14:20 Pulse Ox 96 06/13/23 14:20 Oxygen Delivery Method Room Air 06/13/23 14:20 BMI result Body Mass Index 18.4 Tobacco/Smoking Status: Tobacco use Status Tobacco use date assessed 06/13/23 06/13/23 14:24 Patient Tobacco Use Status Never used Tobacco 06/13/23 14:24 e-Cigarette/Vaping Use Never Used 06/13/23 14:24 PHQ-9: PHQ-9 Score PHQ-9: Total score 0 06/13/23 15:19 Depression Screening Interpretation: Negative Thrive Assessment: Date of Thrive Assessment Date Thrive assessed 06/13/23 06/13/23 14:24 Currently or been in a relationship where the following occur: no concerns reported Const General: no acute distress and alert HENMT Ears: TM's normal bilaterally and EAC's normal Throat: Yes posterior oropharynx normal and Yes tonsils normal (no TP congestion) Neck Neck: Yes no lymphadenopathy and Yes supple Thyroid: Thyroid normal Resp Auscultation: clear to auscultation bilaterally, no rales and no wheezes Cardio Rate: regular rate Rhythm: regular rhythm Heart sounds: no murmurs GI Palpation (GI): Soft to palpation and nontender Auscultation: normal bowel sounds General: Yes no CVA tenderness Back/Spine/Pelvis Back: no CVA tenderness Thoracic/Lumbar Spine: lumbar spinal tenderness Skin Rashes: no rashes Extrem General: Yes no clubbing, cyanosis or edema Assessment and Plan Assessment & Plan (1) Pure hypercholesterolemia: Code(s): E78.00 - Pure hypercholesterolemia, unspecified Plan: She has no follow up labs done/ordered for her visit today but is reminded that her LDL cholesterol was still elevated on her previous labs at 147 mg/dl a few months ago Reinforced low cholesterol diet - patient is a vegetarian; still does not wish to start on statins to help lower her cholesterol levels Will recheck her labs and fasting lipids in 6 months for follow up (2) Premature ventricular contractions (PVCs) (VPCs): Code(s): I49.3 - Ventricular premature depolarization Plan: Stable/controlled on low dose Metoprolol Echocardiogram done in December 2019 showed no significant abnormalities Repeat Holter monitor done back in February 2023 came out normal Was reportedly advised at her recent cardiology follow-up visit that she can just see cardiology as needed and does not need to continue following up with them regularly from now on (3) Premature atrial contractions: Code(s): I49.1 - Atrial premature depolarization Plan: Controlled on Metoprolol ER 25 mg QD (4) Patent foramen ovale with atrial septal aneurysm: Code(s): Q21.1 - Atrial septal defect Plan: Echocardiogram done on 11/09/2017 showed the presence of an interatrial septal aneurysm with a PFO Cardiac valvular dopplers and RVSP were all normal LVEF between 60-65% with no wall motion abnormalities noted.? 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 to help manage her back pain (6) Osteoporosis: Code(s): M81.0 - Age-related osteoporosis without current pathological fracture Qualifiers: Osteoporosis type: age-related Presence of current pathological fra cture: without current pathological fracture Qualified Code(s): M81.0 - Age- related osteoporosis without current pathological fracture Plan: Repeat BMD done in December 2022 showed a significant decline in her BMD from previous in July 2019, and her T-score is now at -3.5 She was started on Alendronate 70 mg Q week back then and she has been tolerating her Rx so far She was also referred to endocrinology and is now seeing Dr. Paz for further management Fall precautions reinforced Patient reminded to continue oral calcium and vitamin-D supplements daily and exercise regularly and stay active She is requesting for a repeat BMD in 1 year for follow up if possible - advised that we can try to order it at her next appt but there is no guarantee that insurance will approve it this soon (7) Vitamin D deficiency: Code(s): E55.9 - Vitamin D deficiency, unspecified Plan: Continue Vitamin D3 1000 units QD (8) Raynaud's syndrome: Code(s): I73.00 - Raynaud's syndrome without gangrene Qualifiers: Raynaud?s-associated gangrene presence: without gangrene Qualified Code(s): I73.00 - Raynaud's syndrome without gangrene Plan: Reinforced avoidance of extremes of temperature (especially cold) to minimize her symptoms (9) Vitamin B12 deficiency anemia: Code(s): D51.9 - Vitamin B12 deficiency anemia, unspecified Qualifiers: Vitamin B12 deficiency anemia type: unspecified B12 deficiency Qualified Code(s): D51.9 - Vitamin B12 deficiency anemia, unspecified Plan: Corrected; patient has been instructed to HOLD her Vitamin B12 supplement 1000 mcg QD for now as her Vitamin B12 level was over 1000 at her last blood test done a few months ago (10) Chronic leukopenia: Code(s): D72.819 - Decreased white blood cell count, unspecified Plan: Stable - will continue to monitor regularly (11) Allergic rhinitis: Code(s): J30.9 - Allergic rhinitis, unspecified Qualifiers: Allergic rhinitis seasonality: unspecified Allergic rhinitis trigger: unspecified Qualified Code(s): J30.9 - Allergic rhinitis, unspecified Plan: Continue OTC Loratadine 10 mg or Fexofenadine 180 mg QD PRN Plan Follow up in 6 months Orders: Orders Complete Blood Count Auto Diff 6 Months I49.1 - Atrial premature depolarization, I49.3 - Ventricular premature depolarization Comprehensive [place]. Panel Fast 6 Months E78.00 - Pure hypercholesterolemia, unspecified Lipid Panel 6 Months E78.00 - Pure hypercholesterolemia, unspecified UA CC w/rflx Micro + Cult 6 Months R30.0 - Dysuria TSH reflex Free T4 6 Months E78.00 - Pure hypercholesterolemia, unspecified Vitamin D 25-OH Total 6 Months E55.9 - Vitamin D deficiency, unspecified Vitamin B12 and Folate 6 Months E53.8 - Deficiency of other specified B group vitamins Coding Level of Care Code Est Pt Level 4 (11264) Diagnoses Pure hypercholesterolemia E78.00 Premature ventricular contractions (PVCs) (VPCs) I49.3 Premature atrial contractions I49.1 Patent foramen ovale with atrial septal aneurysm Q21.1 Lumbar degenerative disc disease M51.36 Age-related osteoporosis without current pathological fracture M81.0 Osteoporosis type: age-related Presence of current pathological fracture: without current pathological fracture Vitamin D deficiency E55.9 Raynaud's disease without gangrene I73.00 Raynaud?s-associated gangrene presence: without gangrene Anemia due to vitamin B12 deficiency, unspecified B12 deficiency type D51.9 Vitamin B12 deficiency anemia type: unspecified B12 deficiency Chronic leukopenia D72.819 Allergic rhinitis, unspecified seasonality, unspecified trigger J30.9 Allergic rhinitis seasonality: unspecified Allergic rhinitis trigger: unspecified
== END 2023-06-13 15:26 | disposition home or self-care (01) ==
PROVIDERS: Visit Provider Internal Medicine
DX: E78.00 Pure hypercholesterolemia, unspecified (principal); I49.3 Ventricular premature depolarization; I49.1 Atrial premature depolarization; Q21.10 Atrial septal defect, unspecified; M51.36 Other intervertebral disc degeneration, lumbar region; M81.0 Age-related osteoporosis without current pathological fracture; E55.9 Vitamin D deficiency, unspecified; I73.00 Raynaud's syndrome without gangrene; D51.9 Vitamin B12 deficiency anemia, unspecified; D72.819 Decreased white blood cell count, unspecified; J30.9 Allergic rhinitis, unspecified
CPT/HCPCS: 99214

== ENCOUNTER 2023-06-16 07:46 | Outpatient (REF) | payer MEDICARE, SELFPAY | END 2023-06-16 07:47 | disposition home or self-care (01) | LOC: HO.MAMMO 07:46 | PROVIDERS: PCP Internal Medicine; Visit Provider Internal Medicine | DX: Z12.31 Encounter for screening mammogram for malignant neoplasm of breast (principal) | CPT/HCPCS: 77063; 77067 ==

== ENCOUNTER → 2023-06-16 08:00 | Outpatient (BNV) | payer MEDICARE, SELFPAY | PROVIDERS: PCP Internal Medicine; Visit Provider Radiology Diagnostic Radiology | DX: Z12.31 Encounter for screening mammogram for malignant neoplasm of breast (principal) | CPT/HCPCS: 77063; 77067 ==

== ENCOUNTER 2023-12-05 10:22 | Outpatient (REF) | payer MEDICARE, SELFPAY ==
[2023-12-05 13:07] LABS: MANUAL DIFF FLAG NO
[2023-12-05 13:24] LABS: Appearance Urine Clear; Color Urine Yellow; Glucose Urine UA Negative (Negative); Leukocyte Esterase Urine Negative (Negative); Nitrite Urine Negative (Negative); Specific Gravity - Urine 1.015 (1.005-1.025); Urine Blood Negative (Negative); Urine Ketones Negative (Negative); Urine Protein Negative (Neg-Trace)
[2023-12-05 13:32] LABS: Basophils Percent Auto 0.9 % (0-2); Eosinophils Absolute Auto 0.2 X10*3/uL (0.0-0.4); Eosinophils Percent Auto 4.3 % (0-4); Hematocrit 40.2 % (37.0-47.0); Hemoglobin 12.9 g/dl (12.0-16.0); Imm Gran Abs Auto 0.01 X10*3/uL (0.00-0.03); Imm Gran Pct Auto 0.3 % (0.0-0.4); Lymphocytes Absolute Auto 1.1 X10*3/uL (1.2-4.9); Lymphocytes Percent Auto 30.8 % (20-40); Mean Corpuscular HGB Conc 32.1 g/dl (31.0-35.0); Mean Corpuscular Hemoglobin 32.3 pg (27.0-33.0); Mean Corpuscular Volume 100.5 fL (80.0-98.0); Mean Platelet Volume 11.2 fL (9.4-12.3); Monocytes Absolute Auto 0.3 X10*3/uL (0.1-1.2); Monocytes Percent Auto 9.4 % (2-11); Neutrophils Absolute Auto 1.9 x10*3/uL (2.0-8.3); Neutrophils Percent Auto 54.3 % (45-73); Platelet Count 206 X10*3/uL (160-400); Red Cell Distribution Width 13.5 % (11.0-16.0); White Blood Count 3.5 X10*3/uL (4.8-10.8)
[2023-12-05 13:57] LABS: Alanine Aminotransferase 16 U/L (0-31); Albumin Level 3.8 g/dL (3.5-5.0); Alkaline Phosphatase 33 U/L (39-117); Anion Gap 14 (12-20); Aspartate Amino Transferase 21 U/L (5-31); Bilirubin Total 0.5 mg/dL (0.0-1.0); Blood Urea Nitrogen 21 mg/dL (9-16); Calcium 9.5 mg/dL (8.4-10.2); Carbon Dioxide 27 mmol/L (22-29); Chloride 105 mmol/L (96-108); Cholesterol 223 mg/dL (<200); Estimated Glomerular Filt Rate > 60; Glucose Fasting 93 mg/dL (60-99); HDL Cholesterol 70 mg/dL (>40); LDL Cholesterol Calculated 142 mg/dL (<100); Potassium 4.3 mmol/L (3.3-5.1); Sodium 142 mmol/L (135-145); Total Protein 6.8 g/dL (6.5-8.0); Triglycerides 56 mg/dL (<150)
[2023-12-05 14:02] LABS: TSH reflex Free T4 1.21 uIU/mL (0.32-4.0); Vitamin D 25-OH Total 70.3 ng/mL (>30)
[2023-12-05 14:33] LABS: Folate 12.9 ng/mL (> or = 4.0); Vitamin B12 562 pg/mL (200-900)
== END 2023-12-05 10:23 | disposition home or self-care (01) ==
LOC: HO.HMGCLDS 10:22
PROVIDERS: PCP Internal Medicine; Visit Provider Internal Medicine
DX: I49.3 Ventricular premature depolarization (principal); I49.1 Atrial premature depolarization; E55.9 Vitamin D deficiency, unspecified; E53.8 Deficiency of other specified B group vitamins; R30.0 Dysuria; E78.00 Pure hypercholesterolemia, unspecified
CPT/HCPCS: 36415; 80053; 80061; 81003; 82306; 82607; 82746; 84443; 85025

== ENCOUNTER 2023-12-18 09:52 | Outpatient (AMB) | payer MEDICARE, SELFPAY ==
--- NOTE | 2023-12-18 09:55 | MHC.PC.OV ---
Vital Signs 12/18/23 09:57 Height 5 ft 4 in Weight 104 lb 8 oz BMI 17.9 BP 124/62 Blood Pressure Location Lt brachial Position Sitting Pulse 65 Pulse Source Pulse Oximeter Pulse Oximetry (%) 99 Oxygen Delivery Method Room Air Intake Visit Reasons: Back pain f/u / Referral Intake Note: Patient is here to follow up on Back pain, requesting a referral. 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: Not Required per policy Accompanied by: Self / Same As Patient Allergies No Known Allergies Allergy (Verified 12/18/23 10:32) Medication List - Last Reconciled 12/18/23 by Elie Eid MD acetaminophen 500 mg PO Q6H PRN alendronate 70 mg PO QWEEK aspirin 81 mg PO DAILY cholecalciferol (vitamin D3) 25 mcg PO DAILY clobetasol 0.05% 1 appl topical DAILY estradiol 0.01%(0.1mg/gram) 1 g vaginal 2XW metoprolol succinate ER 25 mg PO DAILY Tobacco use date assessed: 12/18/23 Fall risk assessment: No Falls in past year Last assessed Fall Risk: 12/18/23 Dental Screening Dental Screen Date: 12/18/23 Did you have a dental visit in the last 12 months?: Yes Did you have a dental problem in the last 6 months where you did not have access to dental care?: No Was dental information given to patient?: Patient has dentist HPI Back pain f/u / Referral HPI Details Patient comes in today for her follow up visit States that she has been experiencing increased pain over her lower back and below that as well lately Notes that the pain often gets worse in the late afternoon and states that she would sometime have difficulty walking when her pain increases Would like to see if she can be referred to a back specialist or pain specialist to help manage her symptoms better She was going to her chiropractor to help manage her low back pain for years but finds that even treatments from her chiropractor are not helping much lately Recalls having an MRI of her lower back done at [facility] many years ago (thinks it has been over 10 years) that showed (+) significant arthritis in her lower back Adds that she had COVID back in September 2023 and since then, anything she ate just does not taste good - she has lost a few pounds of weight lately States that she feels okay otherwise She denies any headaches or dizziness Denies any chest pains, no SOB No nausea/vomiting, no abdominal pain No change in bowel habits noted Had her follow up labs done a couple of weeks ago - to discuss her results [facility] Medical History Allergic rhinitis Chronic leukopenia Vitamin B12 deficiency anemia Raynaud's syndrome Vitamin D deficiency Osteoporosis Lumbar degenerative disc disease Patent foramen ovale with atrial septal aneurysm Premature atrial contractions Premature ventricular contractions (PVCs) (VPCs) Pure hypercholesterolemia Normal colonoscopy (~11/06/18) Surgical History History of total hysterectomy History of removal of cyst History of hand surgery Family History Father No problems noted. Mother No problems noted. Social History Housing: House Alcohol intake: former Patient Tobacco Use Status: Never used Tobacco e-Cigarette/Vaping Use: Never Used Second Hand Smoke Exposure: No service: No Current occupational status: retired Cognitive needs: No Hearing needs: No Vision needs: No Questionnaire PHQ-9 Over the last 2 weeks, how often have you been bothered by any of the following problems? 1. Little interest or pleasure in doing things: not at all 2. Feeling down, depressed, or hopeless: not at all 3. Trouble falling or staying asleep, or sleeping too much: not at all 4. Feeling tired or having little energy: not at all 5. Poor appetite or overeating: not at all 6. Feeling bad about yourself - or that you are a failure or have let yourself or your family down: not at all 7. Trouble concentrating on things, such as reading the newspaper or watching television: not at all 8. Moving or speaking so slowly that other people could have noticed. Or the opposite - being so fidgety or restless that you have been moving around a lot more than usual: not at all 9. Thoughts that you would be better off or of hurting yourself in some way: not at all Total score: 0 Depression Screening Interpretation: Negative Depression Screening Done: Yes 52699 - PHQ-9 Billing: Yes Source: Developed by Drs. Gilles Chavez, Dorian Floyd and colleagues, with an educational magali from [employer] ([employer] Thrive Questionnaire Date Thrive assessed: 12/18/23 I am a: Patient What is your living situation today?: I have a steady place to live Within the past 12 months, did the food you bought not last and you didn't have the money to get more?: Never true Within the past 12 months, did you worry whether your food would run out before you got money to buy more?: Never true Do you have trouble paying for medicines?: No Do you have trouble getting transportation to medical appointments?: No Do you have trouble paying your heating and electricity bill?: No Do you have trouble taking care of your child, family member or friend?: No Do you have trouble with day-to-day activities such as bathing, preparing meals, shopping, managing finances, etc.?: No Are you currently unemployed and looking for a job?: No Are you interested in more education?: No Currently or been in a relationship where the following occur: no concerns reported THRIVE Score: 0 AUDIT C Alcohol Use Questionnaire (AUDIT-C) 1. How often do you have a drink containing alcohol?: Never 3. How often do you have six or more drinks on one occasion?: Never Total Score: 0 Score Reviewed/Action Taken: Yes TONY-7 AMB Questionnaire TONY-7 Date TONY - 7 assessed: 12/18/23 Feeling nervous, anxious, or on edge: 0 = Not at all Not being able to stop or control worryin = Not at all Worrying too much about different things: 0 = Not at all Trouble relaxin = Not at all Being so restless that it is hard to sit still: 0 = Not at all Becoming easily annoyed or irritable: 0 = Not at all Feeling afraid as if something awful might happen: 0 = Not at all Total TONY-7 score (0-4 normal; 5-9 mild; 10-14 moderate; 15-21 severe): 0 Source: Developed by Amber Fisher Kurt Kroenke and colleagues, with an educational magali from [employer] Review of Systems Const Denies chills, Denies fatigue, Denies fever(s) and Denies headache(s) ENT Denies dysphagia, Denies dizziness, Denies otalgia, Denies headache(s), Denies neck pain, Denies odynophagia and Denies sore throat Card Denies chest pain, Denies rapid heart rate, Denies irregular heart rhythm, Denies palpitations and Denies dyspnea Resp Denies cough, Denies dyspnea and Denies wheezing GI Denies abdominal pain, Denies constipation, Denies dysphagia, Denies heartburn, Denies diarrhea, Denies nausea, Denies odynophagia and Denies vomiting Denies hematuria, Denies urinary frequency, Denies dysuria, Denies urinary incontinence and Denies urinary urgency Musc Reports back pain (on and off over the lower back - worse in the afternoon), Denies arthralgias, Denies neck pain and Reports stiffness Skin/Breast Denies rash Neuro Denies dizziness, Denies headache(s) and Denies paresthesias Psych Denies anxiety and Denies depression Endo Denies fatigue and Denies palpitations Tenzin/Lymph Denies easy bruising Aller/Immun Denies wheezing Physical exam (Primary Care) Vital Signs: Last Vital Signs Pulse 65 12/18/23 09:57 BP 124/62 12/18/23 09:57 Pulse Ox 99 12/18/23 09:57 Oxygen Delivery Method Room Air 12/18/23 09:57 BMI result Body Mass Index 17.9 Tobacco/Smoking Status: Tobacco use Status Tobacco use date assessed 12/18/23 12/18/23 10:02 Patient Tobacco Use Status Never used Tobacco 12/18/23 10:02 e-Cigarette/Vaping Use Never Used 12/18/23 10:02 PHQ-9: PHQ-9 Score PHQ-9: Total score 0 12/18/23 10:39 Depression Screening Interpretation: Negative Thrive Assessment: Date of Thrive Assessment Date Thrive assessed 12/18/23 12/18/23 10:02 Currently or been in a relationship where the following occur: no concerns reported Const General: no acute distress and alert HENMT Ears: TM's normal bilaterally and EAC's normal Throat: Yes posterior oropharynx normal and Yes tonsils normal (no TP congestion) Neck Neck: Yes no lymphadenopathy and Yes supple Thyroid: Thyroid normal Resp Auscultation: clear to auscultation bilaterally, no rales and no wheezes Cardio Rate: regular rate Rhythm: regular rhythm Heart sounds: no murmurs GI Palpation (GI): Soft to palpation and nontender Auscultation: normal bowel sounds General: Yes no CVA tenderness Back/Spine/Pelvis Back: no CVA tenderness Thoracic/Lumbar Spine: lumbar spinal tenderness Sacroiliac joints: bilaterally tender to palpation Skin Rashes: no rashes Extrem General: Yes no clubbing, cyanosis or edema Results Reviewed Results Reviewed: Laboratory Tests 12/05/23 10:26 WBC 3.5 L Hgb 12.9 Hct 40.2 Plt Count 206 Sodium 142 Potassium 4.3 Creatinine 0.67 Estimated GFR > 60 Fasting Glucose 93 Calcium 9.5 AST 21 ALT 16 Triglycerides 56 Cholesterol 223 H LDL Cholesterol, Calc 142 H HDL Cholesterol 70 Vitamin B12 562 25-OH Vitamin D Total 70.3 TSH 1.21 Ur Specific [place] 1.015 Urine Protein Negative Urine Glucose (UA) Negative Urine Blood Negative Urine Nitrite Negative Ur Leukocyte Esterase Negative Assessment and Plan Assessment & Plan (1) Pure hypercholesterolemia: Code(s): E78.00 - Pure hypercholesterolemia, unspecified Plan: Results of her labs done a couple of weeks ago reviewed and discussed with patient - advised that her cholesterol levels (total and LDL) are still elevated but are mostly unchanged from previous Reinforced low cholesterol diet - patient is a vegetarian; still does not wish to start on statins to help lower her cholesterol levels Will recheck her labs and fasting lipids in 6 months for follow up (2) Premature ventricular contractions (PVCs) (VPCs): Code(s): I49.3 - Ventricular premature depolarization Plan: Stable/controlled on low dose Metoprolol Echocardiogram done in December 2019 showed no significant abnormalities Repeat Holter monitor done back in February 2023 came out normal She was reportedly advised at her recent cardiology follow-up visit in mid-2022 that she can just see cardiology as needed and does not need to continue following up with them regularly (3) Premature atrial contractions: Code(s): I49.1 - Atrial premature depolarization Plan: Controlled on Metoprolol ER 25 mg QD (4) Patent foramen ovale with atrial septal aneurysm: Code(s): Q21.1 - Atrial septal defect Plan: Echocardiogram done on 11/09/2017 showed the presence of an interatrial septal aneurysm with a PFO Cardiac valvular dopplers and RVSP were all normal LVEF between 60-65% with no wall motion abnormalities noted.? 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 but that was over 10 years ago Will also add sacroiliac joint x-rays bilaterally for further evaluation Will refer her to pain management to explore alternative options to help with her low back pain (6) Osteoporosis: Code(s): M81.0 - Age-related osteoporosis without current pathological fracture Qualifiers: Osteoporosis type: age-related Presence of current pathological fracture: without current pathological fracture Qualified Code(s): M81.0 - Age-related osteoporosis without current pathological fracture Plan: Repeat BMD done in December 2022 showed a significant decline in her BMD from previous in July 2019, and her T-score is now at -3.5 She was started on Alendronate 70 mg Q week back then (December 2022) and she has been tolerating her Rx so far She was also referred to endocrinology and is now seeing Dr. Paz for further management Fall precautions reinforced Patient reminded to continue oral calcium and vitamin-D supplements daily and exercise regularly and stay active She is requesting for a repeat BMD in 1 year for follow up if possible - advised that we can try to order it at her next appt but there is no guarantee that insurance will approve it this soon (7) Vitamin D deficiency: Code(s): E55.9 - Vitamin D deficiency, unspecified Plan: Continue Vitamin D3 1000 units QD (8) Raynaud's syndrome: Code(s): I73.00 - Raynaud's syndrome without gangrene Qualifiers: Raynaud?s-associated gangrene presence: without gangrene Qualified Code(s): I73.00 - Raynaud's syndrome without gangrene Plan: Reinforced avoidance of extremes of temperature (especially cold) to minimize her symptoms (9) Vitamin B12 deficiency anemia: Code(s): D51.9 - Vitamin B12 deficiency anemia, unspecified Qualifiers: Vitamin B12 deficiency anemia type: unspecified B12 deficiency Qualified Code(s): D51.9 - Vitamin B12 deficiency anemia, unspecified Plan: Corrected (10) Chronic leukopenia: Code(s): D72.819 - Decreased white blood cell count, unspecified Plan: Stable - will continue to monitor regularly (11) Allergic rhinitis: Code(s): J30.9 - Allergic rhinitis, unspecified Qualifiers: Allergic rhinitis seasonality: unspecified Allergic rhinitis trigger: unspecified Qualified Code(s): J30.9 - Allergic rhinitis, unspecified Plan: Continue OTC Loratadine 10 mg or Fexofenadine 180 mg QD PRN Plan Follow up in 6 months Orders: Orders XR sacroiliac joint min 3V Today M54.50 - Low back pain, unspecified Lipid Panel 6 Months E78.00 - Pure hypercholesterolemia, unspecified Complete Blood Count Auto Diff 6 Months D64.9 - Anemia, unspecified XR lumbar spine 2-3V Today M54.50 - Low back pain, unspecified Comprehensive [place]. Panel Fast 6 Months E78.00 - Pure hypercholesterolemia, unspecified TSH reflex Free T4 6 Months E78.00 - Pure hypercholesterolemia, unspecified UA CC w/rflx Micro + Cult 6 Months R30.0 - Dysuria Referrals Pain Management Referral M51.36 - Other intervertebral disc degeneration, lumbar region Coding Level of Care Code Est Pt Level 4 (18572) Diagnoses Pure hypercholesterolemia E78.00 Premature ventricular contractions (PVCs) (VPCs) I49.3 Premature atrial contractions I49.1 Patent foramen ovale with atrial septal aneurysm Q21.1 Lumbar degenerative disc disease M51.36 Age-related osteoporosis without current pathological fracture M81.0 Osteoporosis type: age-related Presence of current pathological fracture: without current pathological fracture Vitamin D deficiency E55.9 Raynaud's disease without gangrene I73.00 Raynaud?s-associated gangrene presence: without gangrene Anemia due to vitamin B12 deficiency, unspecified B12 deficiency type D51.9 Vitamin B12 deficiency anemia type: unspecified B12 deficiency Chronic leukopenia D72.819 Allergic rhinitis, unspecified seasonality, unspecified trigger J30.9 Allergic rhinitis seasonality: unspecified Allergic rhinitis trigger: unspecified
[2023-12-18 09:57] VITALS: BP 124/62; PULSE 65; O2SAT 99; BMI 17.9
== END 2023-12-18 10:46 | disposition home or self-care (01) ==
PROVIDERS: PCP Internal Medicine; Visit Provider Internal Medicine
DX: E78.00 Pure hypercholesterolemia, unspecified (principal); I49.3 Ventricular premature depolarization; I49.1 Atrial premature depolarization; Q21.10 Atrial septal defect, unspecified; M51.36 Other intervertebral disc degeneration, lumbar region; M81.0 Age-related osteoporosis without current pathological fracture; E55.9 Vitamin D deficiency, unspecified; I73.00 Raynaud's syndrome without gangrene; D51.9 Vitamin B12 deficiency anemia, unspecified; D72.819 Decreased white blood cell count, unspecified; J30.9 Allergic rhinitis, unspecified
CPT/HCPCS: 99214

== ENCOUNTER 2023-12-19 06:39 | Outpatient (REF) | payer MEDICARE, SELFPAY ==
--- NOTE | ~2023-12-19 | XR_ITS ---
EXAMINATION: XR SACROILIAC JOINTS CLINICAL INFORMATION: Low back pain, unspecified COMPARISON: Same-day lumbar spine TECHNIQUE: Four views of the sacroiliac joints FINDINGS: The bones are diffusely demineralized. The bones are intact. No fracture. Alignment is anatomic. Sacroiliac joint spaces are well-maintained without erosions or surrounding sclerosis. Scoliosis and marked degenerative changes seen in the lumbar spine. XR/XR sacroiliac joint min 3V IMPRESSION: 1. The sacroiliac joints are well-maintained. 2. Scoliosis and degenerative changes in the lumbar spine.
--- NOTE | ~2023-12-19 | XR_ITS ---
EXAMINATION: XR LUMBOSACRAL SPINE CLINICAL INFORMATION: Low back pain, unspecified COMPARISON: Lumbar spine 04/12/2010 TECHNIQUE: Three views of the lumbosacral spine. FINDINGS: The bones are diffusely demineralized. There is marked rotatory scoliosis of the lumbar spine, convex left. There is sacralization of the L5 vertebral body. The height of L1-L4 vertebral bodies is well-maintained. There is straightening of the usual lumbar lordosis which can be seen with muscle spasm. Again noted is left lateral translation of L3 with respect to L4 with new bridging osteophyte formation along the right lateral aspect of the L3-L4 disc space. There is multilevel severe degenerative disc disease with disc space narrowing, spondylosis and vacuum phenomenon from L1-L2 through L3-L4. No acute fracture. Grade 1 anterolisthesis of L4 on L5. There is marked degenerative facet joint disease, most notable in the lower lumbar spine. XR/XR lumbar spine 2-3V IMPRESSION: 1. Marked rotatory scoliosis of the lumbar spine, convex left. 2. Severe multilevel degenerative disc disease. 3. Multilevel degenerative facet joint disease. 4. Grade 1 anterolisthesis of L4 on L5. 5. Left lateral translation of L3 with respect to L4 with new bridging osteophyte formation along the right lateral aspect of the L3-L4 disc space.
== END 2023-12-19 06:40 | disposition home or self-care (01) ==
LOC: HO.XRAY 06:39
PROVIDERS: PCP Internal Medicine; Visit Provider Internal Medicine
DX: M54.50 Low back pain, unspecified (principal)
CPT/HCPCS: 72100; 72202

== ENCOUNTER 2023-12-28 09:49 | Outpatient (AMB) | payer MEDICARE, SELFPAY ==
--- NOTE | 2023-12-28 09:54 | A.OFFVIS_ITS ---
Vital Signs 12/28/23 10:00 Height 5 ft 4 in Weight 106 lb 5 oz BMI 18.2 BP 105/55 L Blood Pressure Location Rt brachial Position Sitting Pulse 71 Pulse Source Pulse Oximeter Pulse Oximetry (%) 97 Oxygen Delivery Method Room Air Intake Visit Reasons: intervertebral disc degeneration, lumbar region Intake Note: Pain today 09/23 Crook Operator Required: No Accompanied by: Self / Same As Patient Allergies No Known Allergies Allergy (Verified 12/18/23 10:32) HPI HPI intervertebral disc degeneration, lumbar region: Details: Patient is a pleasant 78 years old female with history of osteoporosis, lumbar degenerative disc disease, arthritis, headaches, atrial septal aneurysm and PFO on low-dose aspirin, presents today for initial evaluation of lower back pain and left hip pain. Denies any recent trauma, injury, or falls. She completed lumbar spine MRI in 2010, was told by Neurosurgeon you have to learn to live with this and was deemed nonsurgical. Patient has pending lumbar spine x-ray and sacroiliac joint x-ray results. Back pain is axial, worse with lumbar extension and also radiates into her left buttock that radiates down posterior aspect of left leg, especially left outer calf but not into the perineum. Patient reports left medial foot and ankle burning with aching and tingling sensations and aching and stabbing sensations in her left low back and left buttock. Prolonged sitting does not increase left buttock pain but she has to adjust her sitting position periodically. Leaning forward will temporary alleviate her low back pain. Reports urinary incontinence for 15 years, which partially improved with Bulkamid Urethral Bulking System 3 years ago. She has not seen Urology for about one year. Pain is consistent with left sided sacroiliac joint pain with left L5-S1 radicular symptoms. Patient reports she never was able to sit remea crossed since childhood years. Denies previous back injections but exhausted conservative treatments with continued and worsening left sided low back pain. She also meditates and continues home exercise program despite the pain. Pain is constant, and worse at afternoon and evenings, rated at 8-9/10. Currently rates pain at 3/10. Pain affe cts her daily activities, functioning, mobility, sleep, and social interactions. Denies any fever, abdominal or groin pain, bowel dysfunction or saddle anesthesia. Reports mild left lower leg somatic weakness. Denies smoking or alcohol consumption or illicit substance use. She drinks 1 cup of caffeinated and 1 cap decaffeinated coffee daily. Location: Lower back radiates into left buttock and left leg posteriorly Duration: Chronic pain for >10 + years, worsening last several months Characteristics of symptom or complaint: Aching, cramping, stabbing, shooting, tight, tingling, burning, radiating Aggravating or associated factors: Standing, walking, cold weather, changing positions Relieving factors: Rest, ice and heat, prednisone, Tylenol, CBD lotion, Arnicare/Arnica cream Treatment: PT, chiropractor, acupuncture, SIJ belt, massage, stretching exercises [facility] Medical History Allergic rhinitis Chronic leukopenia Vitamin B12 deficiency anemia Raynaud's syndrome Vitamin D deficiency Osteoporosis Lumbar degenerative disc disease Patent foramen ovale with atrial septal aneurysm Premature atrial contractions Premature ventricular contractions (PVCs) (VPCs) Pure hypercholesterolemia Normal colonoscopy (~11/06/18) Surgical History History of total hysterectomy History of removal of cyst History of hand surgery Family History Father No problems noted. Mother No problems noted. Social History Housing: House Alcohol intake: former Patient Tobacco Use Status: Never used Tobacco e-Cigarette/Vaping Use: Never Used Second Hand Smoke Exposure: No service: No Current occupational status: retired Cognitive needs: No Hearing needs: No Vision needs: No Review of Systems Const All systems reviewed & are unremarkable except as noted in HPI and below Physical Exam General: Appears afebrile. No acute distress. Alert and oriented. Mood and affect appropriate. Follows and participates in conversation appropriately. Respiratory effort is unlabored. No cough. Able to transition from sit to stand unassisted. Mildly antalgic gait. Ambulates with bilaterally normal heel strike and toe off. Reports mild LLE weakness due to pain. General: Yes no CVA tenderness Back/Spine/Pelvis Other: Pain in all ranges of motion, lumbar extension and facet loading bilaterally reproduces moderate pain. Mild pain with lumbar flexion. No midline tenderness to palpation in the thoracic or lumbar spine. Strength 5/5 right and 4/5 left hip flexion bilaterally. Mild tenderness to bilateral GTB. Mild sensation loss left lower extremity posteriorly. Diminished DTR intact, no clonus. Limited BHUMIKA test reproduces left lateral hip with mild groin and moderate left lower back pain. +Moderate TTP in projection of left SIJ areas. Limited +Rom?s, Stinchfield, Pelvic Compression and Gaenslen?s test positive on the left. Back: no CVA tenderness Cervical Spine: loss of normal cervical lordosis, cervical muscular tenderness and No Cervical spine tenderness Thoracic/Lumbar Spine: thoracic and lumbar spine normal to inspection, No Thoracic/lumbar spine scar(s), Lasegue's sign negative, straight leg raise negative bilaterally, kyphosis (mild), pain with thoraco-lumbar ROM, paraspinal muscle tenderness, thoraco-lumbar ROM limited, Thoracic/lumbar scoliosis (lower lumbar spine), No thoracic spinal tenderness and lumbar spinal tenderness (L4- S1) Pelvis: buttock tenderness on the left and sciatic notch tenderness on the left Sacroiliac joints: on the right nontender and on the left tender to palpation Results Reviewed Results Reviewed: MM/XR DEXA axial skeleton 12/28/22 IMPRESSION: 1. DIAGNOSIS: Osteoporosis based on the lowest T-score value of -3.5 in the total femur applying World Health Organization criteria. MRI LUMBAR SPINE WITHOUT CONTRAST 11/17/2010 HISTORY: 65-year-old female with worsening low back pain and radiating to left leg with tingling. Also complains of left buttock pain x 1 year. TECHNIQUE: Sagittal T1, T2, STIR, axial T1, T2 FSE and coronal T1 sequences of lumbar spine were obtained without contrast. Comparison is done to lumbar spine x-rays 04/12/2010. FINDINGS: There is mild ipsilateral rotoscoliosis of lumbar spine with grade 1 retrolisthesis of L3 over L2. There is loss of disc height virtually at every disc level with disc desiccation changes with preservation of L5-S1 disc level. The vertebral heights are normal. At L5-S1 disc level there is broad-based diffuse bulge eccentric laterally to the left resulting in moderate to severe left neural foraminal narrowing. Underlying broad-based disc herniation is strongly suspected. At L4-L5 disc level there is left lateral subluxation of L4 over L5 due to scoliosis with diffuse mild bulge. There is moderate left facet joint hypertrophy resulting in severe left lateral recess and left neural foramina narrowing. In addition there there is moderate transverse spinal canal stenosis and moderate right neural foramen narrowing as well. At L3-L4 disc level there is posterior spondylosis/bulge complex without spinal stenosis. The neural foramina are moderately narrowed bilaterally slightly worse on the right At L2-L3 disc level there is mild diffuse bulge with mild posterior spondylosis with no disc herniation. There is moderate right facet joint and ligamentum hypertrophy indenting posterior lateral thecal sac. There is moderate right neural foramen narrowing from right lateral subluxation of L2 over L3. The L1-L2 disc level is unremarkable. Conus medullaris terminates at L1-L2 disc level and appears normal in morphology. There are endplate changes at L2-L3, L3-L4, L4-L5 and L5-S1 disc levels with a small Schmorl's node along the superior endplate of L5 vertebra. Incidental note is made of a 2.3 cm Tarlov cyst posterior to S3 vertebra. IMPRESSION: Moderate ipsilateral scoliosis with left lateral subluxation of L4 over L5 and right lateral subluxation of L2 over L3 and retrolisthesis of L3 over L4. Multileveled degenerative changes with bulges/spondylosis complex as described above. There is severe left lateral recess and neural foramen narrowing at L5-S1 disc level from a broad-based pseudo-disc bulge and left lateral disc herniation. Severe left lateral neural foramen narrowing is noted at L4-L5 disc level as well secondary to moderate to severe left facet joint arthropathy at L4-L5 disc level. Moderate right neural foramen narrowing is noted at L2-L3 and L3-L4 disc level secondary to scoliosis and underlying mild diffuse bulge. There is no acute compression fracture. Assessment & Plan Assessment & Plan (1) Lumbar degenerative disc disease: Code(s): M51.36 - Other intervertebral disc degeneration, lumbar region Category: Medical (2) Low back pain: Code(s): M54.50 - Low back pain, unspecified Category: Medical (3) Sacroiliac joint pain: Code(s): M53.3 - Sacrococcygeal disorders, not elsewhere classified Category: Medical (4) Osteoporosis: Code(s): M81.0 - Age-related osteoporosis without current pathological fracture Category: Medical Qualifiers: Osteoporosis type: age-related Presence of current pathological fracture: without current pathological fracture Qualified Code(s): M81.0 - Age- related osteoporosis without current pathological fracture (5) Spondylolisthesis, lumbar region: Code(s): M43.16 - Spondylolisthesis, lumbar region Category: Medical (6) Lumbar scoliosis: Code(s): M41.9 - Scoliosis, unspecified Category: Medical (7) Tarlov cyst: Comment: 2.3 cm Tarlov cyst posterior to S3 vertebra per 11/17/2010 lumbar MRI Code(s): G96.191 - Perineural cyst Category: Medical (8) Left lumbosacral radiculopathy: Code(s): M54.17 - Radiculopathy, lumbosacral region Category: Medical Plan MRI of the lumbar spine to assess for neural integrity and compression and follow up on previous lumbar MRI findings. Patient's back pain is function and mobility limiting and has been resistant to conservative treatments for many years, especially over the last few months. She presents with left radicular symptoms, axial low back pain with significant scoliosis and degenerative changes, and left sacroiliac joint pain. Plan for left diagnostic sacroiliac joint injection with local and fluoroscopy. Expectations, risks and benefits were reviewed. Patient is aware she will be contacted to schedule this procedure. Script provided for naproxen as needed for arthritic low back and SIJ pain which patient reports she will take in the afternoon or evening when pain is most severe. All questions were answered and the patient is in agreement of plan. F ollow-up after injections and sooner as needed. Anticoagulation: Patient on anticoagulation (Aspirin) and instructions given on when to pause with prescribing physician permission. Justification for interventional therapy: ? Patient with average pain > 6/10 ? Patient has exhausted conservative therapy The risks, consequences, alternatives, and benefits of various treatment options were discussed with the patient in great detail, including conservative management, injections and procedures. Orders: Orders MR lumbar spine wo con Today G96.191 - Perineural cyst, M41.9 - Scoliosis, unspecified, M43.16 - Spondylolisthesis, lumbar region, M51.36 - Other intervertebral disc degeneration, lumbar region, M54.17 - Radiculopathy, lumbosacral region, M81.0 - Age-related osteoporosis without current pathological fracture Medications: New naproxen Take it with food and full glass of water 250 mg PO BID PRN 30 tabs 0RF pain M51.36 - Other intervertebral disc degeneration, lumbar region, M53.3 - Sacrococcygeal disorders, not elsewhere classified, M54.50 - Low back pain, unspecified Coding Level of Care Code New Pt Level 4 (74770) Diagnoses Lumbar degenerative disc disease M51.36 Low back pain M54.50 Sacroiliac joint pain M53.3 Age-related osteoporosis without current pathological fracture M81.0 Osteoporosis type: age-related Presence of current pathological fracture: without current pathological fracture Spondylolisthesis, lumbar region M43.16 Lumbar scoliosis M41.9 Tarlov cyst G96.191 Left lumbosacral radiculopathy M54.17
[2023-12-28 10:00] VITALS: BP 105/55; PULSE 71; O2SAT 97; BMI 18.2
== END 2023-12-28 10:51 | disposition home or self-care (01) ==
PROVIDERS: PCP Internal Medicine; Visit Provider Nurse Practitioner Family
DX: M51.36 Other intervertebral disc degeneration, lumbar region (principal); M54.50 Low back pain, unspecified; M53.3 Sacrococcygeal disorders, not elsewhere classified; M81.0 Age-related osteoporosis without current pathological fracture; M43.16 Spondylolisthesis, lumbar region; M41.9 Scoliosis, unspecified; G96.191 Perineural cyst; M54.17 Radiculopathy, lumbosacral region
CPT/HCPCS: 99204

== ENCOUNTER → 2023-12-28 09:49 | Outpatient (BNVA) | payer MEDICARE, SELFPAY | PROVIDERS: PCP Internal Medicine; Visit Provider Nurse Practitioner Family | DX: M51.36 Other intervertebral disc degeneration, lumbar region (principal); M54.50 Low back pain, unspecified; M53.3 Sacrococcygeal disorders, not elsewhere classified; M81.0 Age-related osteoporosis without current pathological fracture; M43.16 Spondylolisthesis, lumbar region; M41.9 Scoliosis, unspecified; M54.17 Radiculopathy, lumbosacral region; G96.191 Perineural cyst | CPT/HCPCS: 99202 ==

== ENCOUNTER 2024-01-25 06:19 | Outpatient (REF) | payer MEDICARE, SELFPAY ==
--- NOTE | ~2024-01-25 | FL_ITS ---
EXAMINATION: XR FLUOROSCOPY WITH IMAGES CLINICAL INFORMATION: Sacrococcygeal disorders. COMPARISON: None available. TECHNIQUE: Fluoroscopy Supervised By: Dr. Meng. Fluoroscopy Time: 0.1. Cumulative Dose: 0.937 mGy. DAP: 0.70822 Gycm2. Images: 3. FINDINGS: Intraoperative fluoroscopy and spot films were performed during a procedure in the OR. Spinal needle is seen overlying the mid left SI joint Please correlate with Dr. Meng's report for complete details. FL/FL guidance in treatment room IMPRESSION: Intraoperative fluoroscopy and spot films were obtained. Please see Dr. Meng's report for complete details.
== END 2024-01-25 06:20 | disposition home or self-care (01) ==
LOC: CF 06:19
PROVIDERS: Visit Provider Internal Medicine
DX: M53.3 Sacrococcygeal disorders, not elsewhere classified (principal)
CPT/HCPCS: 27096; J2795

== ENCOUNTER 2024-01-25 09:57 | Outpatient (AMB) | payer MEDICARE, SELFPAY ==
--- NOTE | 2024-01-25 10:18 | MHC.OFFVIS ---
Vital Signs 01/25/24 10:32 01/25/24 11:36 BP 100/53 L 106/57 L Blood Pressure Location Lt brachial Lt brachial Position Sitting Sitting Pulse 74 65 Pulse Source Pulse Oximeter Pulse Oximeter Pulse Oximetry (%) 100 100 Oxygen Delivery Method Room Air Room Air Comment pre-op post-op Intake Visit Reasons: Left Dx SIJ inj Allergies No Known Allergies Allergy (Verified 12/18/23 10:32) HPI HPI Left Dx SIJ inj: Details: Patient presents for scheduled procedure. Denies any recent cough, cold, infection, fever or other significant changes in medical history since last office visit. [facility] Medical History (Updated 12/28/23 @ 11:14 by JOE Khalil) Tarlov cyst Allergic rhinitis Chronic leukopenia Vitamin B12 deficiency anemia Raynaud's syndrome Vitamin D deficiency Osteoporosis Lumbar degenerative disc disease Patent foramen ovale with atrial septal aneurysm Premature atrial contractions Premature ventricular contractions (PVCs) (VPCs) Pure hypercholesterolemia Normal colonoscopy (~11/06/18) Surgical History History of total hysterectomy History of removal of cyst History of hand surgery Family History Father No problems noted. Mother No problems noted. Social History Housing: House Alcohol intake: former Patient Tobacco Use Status: Never used Tobacco e-Cigarette/Vaping Use: Never Used Second Hand Smoke Exposure: No service: No Current occupational status: retired Cognitive needs: No Hearing needs: No Vision needs: No Physical Exam Vital Signs: Last Vital Signs Pulse 65 01/25/24 11:36 BP 106/57 L 01/25/24 11:36 Pulse Ox 100 01/25/24 11:36 Oxygen Delivery Method Room Air 01/25/24 11:36 Office Procedures Joint Injection/Drain Joint Injection/Drain Details: Diagnostic Sacroiliac Joint Injection, LEFT The procedure, its benefits, and its risks were explained and written informed consent was obtained from the patient. Immediately prior to starting the procedure, a time-out safety check was conducted. The patient's identification, procedure name, procedure site, and procedure laterality were confirmed with the patient. ? Patient was placed prone on the fluoroscopy table and the lumbosacral area was prepped using ChloraPrep and draped with sterile drape in standard fashion. The C-arm was rotated in a contralateral oblique fashion until the medial border of the iliac crest no longer foreshadowed the posterior sacroiliac joint line. The skin and subcutaneous tissue was anesthetized using 1 mL of 0.5% plain lidocaine with 1.5-inch 25-gauge needle in the middle region of the joint line.?A 3.5-inch 22-gauge spinal needle with a small bend on the tip was slowly advanced towards the joint line, coaxial to the x-ray beam. Once bony content was obtained, the needle was easily slid into the intra-articular space.?Intra-articular needle position was confirmed using lateral fluoroscopy.?A total volume of 2.5mL of solution containing 40 mg triamcinilone and rest 0.5% of ropivacaine was injected intra-articularly. The stylet was reinserted and needle was removed. The patient tolerated the procedure well. Patient denied any lower extremity weakness or numbness. Patient was observed for 30 min and was discharged after fulfilling the standard discharge criteria. Coding 97719 - Sacroiliac Procedure code (CPT) selection complete Assessment & Plan Assessment & Plan (1) Sacroiliac joint pain: Code(s): M53.3 - Sacrococcygeal disorders, not elsewhere classified Category: Medical Plan Patient is status post left diagnostic SI joint injection. Patient tolerated procedure well and was discharged home in stable condition with discharge instructions. All questions were answered. We will follow-up via telephone or in clinic to assess response to therapy. A follow-up appointment was made during today's visit. Orders: Orders FL guidance in treatment room Today M53.3 - Sacrococcygeal disorders, not elsewhere classified Coding Level of Care Code Procedure Only Diagnoses Sacroiliac joint pain M53.3 CPT Codes Coding - Joint 9: 22149 - Sacroiliac ([id number])
[2024-01-25 10:32] VITALS: BP 100/53; PULSE 74; O2SAT 100
[2024-01-25 11:36] VITALS: BP 106/57; PULSE 65; O2SAT 100
== END 2024-01-25 11:12 | disposition home or self-care (01) ==
LOC: HO.PMCPRC 09:57
PROVIDERS: PCP Internal Medicine; Visit Provider Internal Medicine
DX: M53.3 Sacrococcygeal disorders, not elsewhere classified (principal)
CPT/HCPCS: 27096

== ENCOUNTER 2024-01-31 09:20 | Outpatient (AMB) | payer MEDICARE, SELFPAY ==
--- NOTE | 2024-01-31 09:22 | A.OFFVIS_ITS ---
Vital Signs 01/31/24 09:23 Height 5 ft 4 in Weight 105 lb BMI 18.0 BP 119/58 L Blood Pressure Location Lt brachial Position Sitting Respiration 14 Pulse 71 Pulse Source Pulse Oximeter Pulse Oximetry (%) 99 Oxygen Delivery Method Room Air Intake Visit Reasons: s/p left Dx SIJ inj Allergies No Known Allergies Allergy (Verified 01/31/24 09:24) Medication List - Last Reconciled 01/31/24 by Tangela Pete LPN acetaminophen 500 mg PO Q6H PRN alendronate 70 mg PO QWEEK aspirin 81 mg PO DAILY cholecalciferol (vitamin D3) 25 mcg PO DAILY clobetasol 0.05% 1 appl topical DAILY estradiol 0.01%(0.1mg/gram) 1 g vaginal 2XW metoprolol succinate ER 25 mg PO DAILY naproxen 250 mg PO BID PRN HPI HPI s/p left Dx SIJ inj: Details: 78-year-old female who presents to the office for status post sacroiliac joint injection. No significant relief was noted from the diagnostic assignment injection. She continues to have pain back going down her left calf and buttocks. Her MRI was denied due to lack of recent physical therapy. Past Procedure: 01/25/24: Left diagnostic sacroiliac joint injection: no significant relief [facility] Medical History (Updated 12/28/23 @ 11:14 by JOE Khalil) Tarlov cyst Allergic rhinitis Chronic leukopenia Vitamin B12 deficiency anemia Raynaud's syndrome Vitamin D deficiency Osteoporosis Lumbar degenerative disc disease Patent foramen ovale with atrial septal aneurysm Premature atrial contractions Premature ventricular contractions (PVCs) (VPCs) Pure hypercholesterolemia Normal colonoscopy (~11/06/18) Surgical History History of total hysterectomy History of removal of cyst History of hand surgery Family History Father No problems noted. Mother No problems noted. Social History Housing: House Alcohol intake: former Patient Tobacco Use Status: Never used Tobacco e-Cigarette/Vaping Use: Never Used Second Hand Smoke Exposure: No service: No Current occupational status: retired Cognitive needs: No Hearing needs: No Vision needs: No Review of Systems Const All systems reviewed & are unremarkable except as noted in HPI and below Physical Exam Vital Signs: Last Vital Signs Pulse 71 01/31/24 09:23 Resp 14 01/31/24 09:23 BP 119/58 L 01/31/24 09:23 Pulse Ox 99 01/31/24 09:23 Oxygen Delivery Method Room Air 01/31/24 09:23 BMI result Body Mass Index 18.0 General: Appears afebrile. Alert and oriented. Mood and affect appropriate. Follows and participates in conversation appropriately. Respiratory effort is unlabored. Able to transition from sit to stand unassisted. Results Reviewed Results Reviewed: No imaging is available for review Assessment & Plan Assessment & Plan (1) Left lumbosacral radiculopathy: Code(s): M54.17 - Radiculopathy, lumbosacral region Category: Medical Plan Prescribed physical therapy for low back radicular pain. If she does not achieve relief after 6 weeks of physical therapy, will call us and we will order MRI again. Scribed for Dr. Meng by Mireya Lopez, medical case manager, on 01/31/2024. I, Dr. Meng, have personally reviewed and agree with the information entered by the scribe. Orders: Orders PT Evaluation and Treatment Today M54.17 - Radiculopathy, lumbosacral region Coding Level of Care Code Est Pt Level 3 (36248) Diagnoses Left lumbosacral radiculopathy M54.17
[2024-01-31 09:23] VITALS: BP 119/58; PULSE 71; RESP 14; O2SAT 99; BMI 18.0
== END 2024-01-31 09:30 | disposition home or self-care (01) ==
PROVIDERS: PCP Internal Medicine; Visit Provider Internal Medicine
DX: M54.17 Radiculopathy, lumbosacral region (principal)
CPT/HCPCS: 99213

== ENCOUNTER → 2024-01-31 09:20 | Outpatient (BNVA) | payer MEDICARE, SELFPAY | PROVIDERS: PCP Internal Medicine; Visit Provider Internal Medicine | DX: M54.17 Radiculopathy, lumbosacral region (principal) | CPT/HCPCS: 99212 ==

== ENCOUNTER 2024-04-04 10:00 | Outpatient (RCR) | payer MEDICARE, SELFPAY ==
--- NOTE | 2024-03-05 11:27 | MHC.PT.EP ---
[facility] [place] Office [place] Office [place] Office [address] Arielle Hearn [address] [phone] F: [phone] F: [phone] F: [phone] F: [phone] Physical Therapy Plan of Care Date of Evaluation: 03/05/24 Date of Surgery: Diagnosis: This is a 78 yo female presenting to skilled PT with a script for L lumbosacral radiculopathy. Assessment: This is a 78 yo female presenting to skilled PT with a script for L lumbosacral radiculopathy. 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 Patient is being followed by [facility] pain management (does not have a follow up currently booked but was told to after PT). She recently had a diagnostic assignment injection through them without significant relief. Her MRI was also denied due to lack of recent physical therapy. Pain is located across the low back, the L buttock, wraps into the lateral leg and into the ankle, wraps around the top of the foot and arch. Pain can be tight, squeezing, deep and tingling in nature. In terms of activities and pain management she was going to her chiropractor but has been finding that this has not been helping as much anymore (no manipulations noted but soft tissue was performed). She has also been going to a regional trainer once in a while for OP dx and works on strengthening, stretching and balance. The patient also walks daily 10,000-12,000 steps a day and meditates daily as well. She had PT about 10 years ago for this but none since. Assessment reveals pain that ranges from up to a 3-9/10 at the worst. Patient demos decreased lumbar and hip ROM, strength of core, back and L LE's, TTP at ITB, L piriformis, L PSIS, and impaired posture with scoliosis, forward head and trunk, increased thoracic kyphosis and rounded shoulders. Based on functional limitations, impaired QOL and pain tolerance patient is a good candidate for skilled PT 2x/wk for 4wks. Frequency and Duration: The patient will be seen 2x/wk for 4wks Short Term Goals: Pt will demonstrate improved postural awareness and understanding of core engagement with supine and standing tasks without cues throughout session to improve overall back safety in 2 weeks. Pt will demonstrate centralization of sx in 2 weeks. Pt will continue to reinforce precautions, sitting, standing and ADL modifications with proper body mechanics in 2 wks. Skilled Nursing Goals: Pt will demonstrate improved outcome measure by 5 points in 4 weeks for improved functional mobility. Pt will demonstrate ability to bend and lift WNL min to no pain for household tasks in 4 wks. Pt will be I in HEP and compliant in 4wks Treatment Plan: Modalities to reduce pain, spasms and effusion. Manual therapy to restore motion and function. Therapeutic exercise to improve strength and flexibility. Neuromuscular re-education for posture and balance. Therapeutic activities to return to functional activities of daily living. Electronically signed by: Thalia Miller PT Please sign and return to therapist. Thank you for your referral.
--- NOTE | 2024-05-03 07:34 | MHC.PT.DC ---
[facility] [place] [facility] [place] [facility] [place] [facility] [address] [phone] F: [phone] F: [phone] F: [phone] F: [phone] Physical Therapy Discharge Report Diagnosis: This is a 78 yo female presenting to skilled PT with a script for L lumbosacral radiculopathy. Date of Surgery: Date of Evaluation: 03/05/24 Date of Discharge: 05/03/24 Treatments to Date: 9 Cancellations to Date: 0 No Shows to Date: 0 Discharge Status: Achieved Goals Improved Function Independent with HEP Recommend MD Follow-up Discharge Summary: 04/04: Patient has come to PT for 9 sessions, in general she has improved her symptoms and function but still has some ongoing discomfort. She will be following up with her referring MD for further testing. She has a good HEP to continue on her own and is I in her care. I did educate her that if she feels like the soft tissue is helpful and pain returns to contact PCP and return to PT as needed. Chart was closed after 30 days. Electronically signed by: Thalia Miller, PT Please sign and return to therapist. Thank you for your referral.
== END 2024-05-03 07:34 | disposition home or self-care (01) ==
LOC: HO.PTCHIC 10:00
PROVIDERS: PCP Internal Medicine; Visit Provider Internal Medicine
DX: M54.17 Radiculopathy, lumbosacral region (principal)
CPT/HCPCS: 97110; 97140; 97162

== ENCOUNTER 2024-04-22 10:51 | Outpatient (AMB) | payer MEDICARE, SELFPAY ==
--- NOTE | 2024-04-22 11:00 | A.OFFVIS_ITS ---
Vital Signs 04/22/24 11:04 Height 5 ft 4 in Weight 106 lb BMI 18.2 BP 110/63 Blood Pressure Location Rt brachial Position Sitting Pulse 66 Pulse Source Pulse Oximeter Pulse Oximetry (%) 97 Oxygen Delivery Method Room Air Intake Visit Reasons: PT Follow Up Intake Note: Pain today 10/24 Job Coaching Required: No Accompanied by: Self / Same As Patient Allergies No Known Allergies Allergy (Verified 04/22/24 11:04) HPI Comments Details: Patient presents today for follow up after PT. She continues to endorse left sided lower back pain with radiation into left buttock which is constant and left calf and foot with walking and standing. She has to lean forward often when walking to relieve her back and radicular symptoms. Patient completed 9 session of physical therapy and continues home exercise program with partial improvement in her functioning but continues to be in significant pain, especially in the late afternoon with movements and after daily activity. Pain prevents her from prolonged standing or walking. Denies any fever or chills, bladder or bowel dysfunction or saddle anesthesia. PRIOR Dr. Meng: 78-year-old female who presents to the office for status post sacroiliac joint injection. No significant relief was noted from the diagnostic assignment injection. She continues to have pain back going down her left calf and buttocks. Her MRI was denied due to lack of recent physical therapy. Past Procedure: 01/25/24: Left diagnostic sacroiliac joint injection: no significant relief PRIOR: Patient is a pleasant 78 years old female with history of osteoporosis, lumbar degenerative disc disease, arthritis, headaches, atrial septal aneurysm and PFO on low-dose aspirin, presents today for initial evaluation of lower back pain and left hip pain. Denies any recent trauma, injury, or falls. She completed lumbar spine MRI in 2010, was told by Neurosurgeon you have to learn to live with this and was deemed nonsurgical. Patient has pending lumbar spine x-ray and sacroiliac joint x-ray results. Back pain is axial, worse with lumbar extension and also radiates into her left buttock that radiates down posterior aspect of left leg, especially left outer calf but not into the perineum. Patient reports left medial foot and ankle burning with aching and tingling sensations and aching and stabbing sensations in her left low back and left buttock. Prolonged sitting does not increase left buttock pain but she has to adjust her sitting position periodically. Leaning forward will temporary alleviate her low back pain. Reports urinary incontinence for 15 years, which partially improved with Bulkamid Urethral Bulking System 3 years ago. She has not seen Urology for about one year. Pain is consistent with left sided sacroiliac joint pain with left L5-S1 radicular symptoms. Patient reports she n ever was able to sit reema crossed since childhood years. Denies previous back injections but exhausted conservative treatments with continued and worsening left sided low back pain. She also meditates and continues home exercise program despite the pain. Pain is constant, and worse at afternoon and evenings, rated at 8-9/10. Currently rates pain at 3/10. Pain affects her daily activities, functioning, mobility, sleep, and social interactions. Denies any fever, abdominal or groin pain, bowel dysfunction or saddle anesthesia. Reports mild left lower leg somatic weakness. Denies smoking or alcohol consumption or illicit substance use. She drinks 1 cup of caffeinated and 1 cap decaffeinated coffee daily. Location: Lower back radiates into left buttock and left leg posteriorly Duration: Chronic pain for >10 + years, worsening last several months Characteristics of symptom or complaint: Aching, cramping, stabbing, shooting, tight, tingling, burning, radiating Aggravating or associated factors: Standing, walking, cold weather, changing positions Relieving factors: Rest, ice and heat, prednisone, Tylenol, CBD lotion, Arnicare/Arnica cream Treatment: PT, chiropractor, acupuncture, SIJ belt, massage, stretching exercises [facility] Medical History Tarlov cyst Allergic rhinitis Chronic leukopenia Vitamin B12 deficiency anemia Raynaud's syndrome Vitamin D deficiency Osteoporosis Lumbar degenerative disc disease Patent foramen ovale with atrial septal aneurysm Premature atrial contractions Premature ventricular contractions (PVCs) (VPCs) Pure hypercholesterolemia Normal colonoscopy (~11/06/18) Surgical History History of total hysterectomy History of removal of cyst History of hand surgery Family History Father No problems noted. Mother No problems noted. Social History Housing: House Alcohol intake: former Patient Tobacco Use Status: Never used Tobacco e-Cigarette/Vaping Use: Never Used Second Hand Smoke Exposure: No service: No Current occupational status: retired Cognitive needs: No Hearing needs: No Vision needs: No Review of Systems Const All systems reviewed & are unremarkable except as noted in HPI and below Physical Exam Vital Signs: Last Vital Signs Pulse 66 04/22/24 11:04 BP 110/63 04/22/24 11:04 Pulse Ox 97 04/22/24 11:04 Oxygen Delivery Method Room Air 04/22/24 11:04 BMI result Body Mass Index 18.2 General: Appears afebrile. No acute distress. Alert and oriented. Mood and affect appropriate. Follows and participates in conversation appropriately. Respiratory effort is unlabored. No cough. Able to transition from sit to stand unassisted. Mildly antalgic gait. Ambulates with bilaterally normal heel strike and toe off. Reports mild LLE weakness due to pain. General: Yes no CVA tenderness Back/Spine/Pelvis Other: Limited lumbar ROM due to pain. Flexion forward temporary alleviates her radicular symptoms. No midline tenderness to palpation in the thoracic or lumbar spine. Strength 5/5 right and 4/5 left hip flexion bilaterally. Mild tenderness to bilateral GTB. Mild sensation loss left lower extremity posteriorly. Diminished DTR intact, no clonus. Limited BHUMIKA test reproduces left lateral hip with mild groin and moderate left lower back pain. +Moderate TTP in projection of left SIJ areas. Limited +Rom?s, Stinchfield, Pelvic Compression positive on the left. Back: no CVA tenderness Cervical Spine: loss of normal cervical lordosis, cervical muscular tenderness and No Cervical spine tenderness Thoracic/Lumbar Spine: thoracic and lumbar spine normal to inspection, No Thoracic/lumbar spine scar(s), kyphosis (mild), Lasegue's sign positive on the left and diffuse, pain with thoraco-lumbar ROM, paraspinal muscle tenderness, thoraco-lumbar ROM limited, Thoracic/lumbar scoliosis (lower lumbar spine), No thoracic spinal tenderness, lumbar spinal tenderness (L4-S1) and straight leg raise positive left at 50 degrees Pelvis: buttock tenderness on the left and sciatic notch tenderness on the left Sacroiliac joints: on the right nontender and on the left tender to palpation Results Reviewed Results Reviewed: MM/XR DEXA axial skeleton 12/28/22 IMPRESSION: 1. DIAGNOSIS: Osteoporosis based on the lowest T-score value of -3.5 in the total femur applying World Health Organization criteria. MRI LUMBAR SPINE WITHOUT CONTRAST 11/17/2010 HISTORY: 65-year-old female with worsening low back pain and radiating to left leg with tingling. Also complains of left buttock pain x 1 year. TECHNIQUE: Sagittal T1, T2, STIR, axial T1, T2 FSE and coronal T1 sequences of lumbar spine were obtained without contrast. Comparison is done to lumbar spine x-rays 04/12/2010. FINDINGS: There is mild ipsilateral rotoscoliosis of lumbar spine with grade 1 retrolisthesis of L3 over L2. There is loss of disc height virtually at every disc level with disc desiccation changes with preservation of L5-S1 disc level. The vertebral heights are normal. At L5-S1 disc level there is broad-based diffuse bulge eccentric laterally to the left resulting in moderate to severe left neural foraminal narrowing. Underlying broad-based disc herniation is strongly suspected. At L4-L5 disc level there is left lateral subluxation of L4 over L5 due to scoliosis with diffuse mild bulge. There is moderate left facet joint hypertrophy resulting in severe left lateral recess and left neural foramina narrowing. In addition there there is moderate transverse spinal canal stenosis and moderate right neural foramen narrowing as well. At L3-L4 disc level there is posterior spondylosis/bulge complex without spinal stenosis. The neural foramina are moderately narrowed bilaterally slightly worse on the right At L2-L3 disc level there is mild diffuse bulge with mild posterior spondylosis with no disc herniation. There is moderate right facet joint and ligamentum hypertrophy indenting posterior lateral thecal sac. There is moderate right neural foramen narrowing from right lateral subluxation of L2 over L3. The L1-L2 disc level is unremarkable. Conus medullaris terminates at L1-L2 disc level and appears normal in morphology. There are endplate changes at L2-L3, L3-L4, L4-L5 and L5-S1 disc levels with a small Schmorl's node along the superior endplate of L5 vertebra. Incidental note is made of a 2.3 cm Tarlov cyst posterior to S3 vertebra. IMPRESSION: Moderate ipsilateral scoliosis with left lateral subluxation of L4 over L5 and right lateral subluxation of L2 over L3 and retrolisthesis of L3 over L4. Multileveled degenerative changes with bulges/spondylosis complex as described above. There is severe left lateral recess and neural foramen narrowing at L5-S1 disc level from a broad-based pseudo-disc bulge and left lateral disc herniation. Severe left lateral neural foramen narrowing is noted at L4-L5 disc level as well secondary to moderate to severe left facet joint arthropathy at L4-L5 disc level. Moderate right neural foramen narrowing is noted at L2-L3 and L3-L4 disc level secondary to scoliosis and underlying mild diffuse bulge. There is no acute compression fracture. Assessment & Plan Assessment & Plan (1) Lumbar degenerative disc disease: Code(s): M51.36 - Other intervertebral disc degeneration, lumbar region Category: Medical (2) Low back pain: Code(s): M54.50 - Low back pain, unspecified Category: Medical (3) Sacroiliac joint pain: Code(s): M53.3 - Sacrococcygeal disorders, not elsewhere classified Category: Medical (4) Osteoporosis: Code(s): M81.0 - Age-related osteoporosis without current pathological fracture Category: Medical Qualifiers: Osteoporosis type: age-related Presence of current pathological fracture: without current pathological fracture Qualified Code(s): M81.0 - Age- related osteoporosis without current pathological fracture (5) Spondylolisthesis, lumbar region: Code(s): M43.16 - Spondylolisthesis, lumbar region Category: Medical (6) Lumbar scoliosis: Code(s): M41.9 - Scoliosis, unspecified Category: Medical (7) Tarlov cyst: Comment: 2.3 cm Tarlov cyst posterior to S3 vertebra per 11/17/2010 lumbar MRI Code(s): G96.191 - Perineural cyst Category: Medical (8) Left lumbosacral radiculopathy: Code(s): M54.17 - Radiculopathy, lumbosacral region Category: Medical Plan Patient completed 9 session of physical therapy and continues home exercise pro gram with partial improvement in her functioning but continues to be in significant pain, especially in the late afternoon with movements and after daily activity. We will proceed with MRI of the lumbar spine to assess for neural integrity and compression and follow up on previous lumbar MRI findings. Patient's back pain is function and mobility limiting and has been resistant to conservative tr eatments. All questions and concerns have been answered and patient agreed with the treatment plan. Follow-up for MRI results and sooner as needed. Coding Level of Care Code Est Pt Level 4 (80893) Complex EM visit Add On G2211 Diagnoses Lumbar degenerative disc disease M51.36 Low back pain M54.50 Sacroiliac joint pain M53.3 Age-related osteoporosis without current pathological fracture M81.0 Osteoporosis type: age-related Presence of current pathological fracture: without current pathological fracture Spondylolisthesis, lumbar region M43.16 Lumbar scoliosis M41.9 Tarlov cyst G96.191 Left lumbosacral radiculopathy M54.17
[2024-04-22 11:04] VITALS: BP 110/63; PULSE 66; O2SAT 97; BMI 18.2
== END 2024-04-22 11:37 | disposition home or self-care (01) ==
PROVIDERS: PCP Internal Medicine; Visit Provider Nurse Practitioner Family
DX: M51.360 Other intervertebral disc degeneration, lumbar region with discogenic back pain only (principal); M53.3 Sacrococcygeal disorders, not elsewhere classified; M81.0 Age-related osteoporosis without current pathological fracture; M43.16 Spondylolisthesis, lumbar region; M41.9 Scoliosis, unspecified; G96.191 Perineural cyst; M54.17 Radiculopathy, lumbosacral region
CPT/HCPCS: 99214; G2211

== ENCOUNTER → 2024-04-22 10:51 | Outpatient (BNVA) | payer MEDICARE, SELFPAY | PROVIDERS: PCP Internal Medicine; Visit Provider Nurse Practitioner Family | DX: M51.360 Other intervertebral disc degeneration, lumbar region with discogenic back pain only (principal); M54.17 Radiculopathy, lumbosacral region; M41.9 Scoliosis, unspecified; M53.3 Sacrococcygeal disorders, not elsewhere classified; M81.0 Age-related osteoporosis without current pathological fracture; M43.16 Spondylolisthesis, lumbar region; G96.191 Perineural cyst | CPT/HCPCS: 99212 ==

== ENCOUNTER 2024-05-09 22:44 | Emergency (ER) | payer MEDICARE, SELFPAY ==
--- NOTE | ~2024-05-09 | CT_ITS ---
EXAMINATION: CT HEAD WITHOUT CONTRAST CT CERVICAL SPINE WITHOUT CONTRAST CLINICAL INFORMATION: Fall. Head strike. Pain. COMPARISON: None available. TECHNIQUE: Contiguous axial imaging was performed from the skull base to vertex without intravenous administration of contrast. Contiguous axial imaging was performed from the upper chest through the skull base without intravenous administration of contrast. Coronal and sagittal reformats were obtained at the acquisition workstation. This CT examination was performed using dose optimization techniques as appropriate, variously including the following: *Automated exposure control. *Adjustment of mA and/or kV according to patient size (this includes techniques or standardized protocols for targeted exams where dose is matched to indication/reason for exam; i.e. extremities or head). *Use of iterative reconstruction technique. DLP: 872 mGy-cm FINDINGS: Head: There is no evidence of acute intracranial hemorrhage or edematous territorial infarction. Umana-white matter differentiation is preserved. A few foci of hypoattenuation in the periventricular and deep white matter are consistent with mild microangiopathy. Proportional prominence of the ventricles and sulcal spaces without evidence of obstructive hydrocephalus. No abnormal mass effect or midline shift. No extra-axial fluid collections. Small subgaleal hematoma along the right posterior vertex, measuring up to 0.4 cm in depth. No associated acute osseous abnormalities. Mild mucosal thickening of the paranasal sinuses. Moderate leftward nasal septal deviation. The mastoid air cells and middle ear cavities are clear. Cervical Spine: The atlantooccipital and atlantoaxial articulations remain well aligned. Moderate degenerative arthropathy of the atlantodental articulation. Straightening of the normal cervical lordosis. Moderate degenerative stepwise retrolistheses of C5-C7. Otherwise, there is anatomic alignment of the vertebral bodies and posterior elements. No evidence of acute fracture or subluxation. The vertebral body heights are maintained. Advanced degenerative disc disease from C5 to C7. Moderate degenerative disc disease at C4-C5. Facet and uncovertebral joint arthropathy leads to osseous encroachment on the neural foramina from C3-C7. There is no prevertebral soft tissue swelling. The thyroid gland and remaining cervical soft tissues are within normal limits. The lung apices demonstrate no abnormalities. CT/CT cervical spine wo IV con IMPRESSION: 1. No evidence of acute intracranial hemorrhage or edematous territorial infarction. Mild underlying microangiopathy and generalized cerebral volume loss. 2. No evidence of acute fracture or traumatic subluxation of the cervical spine. Moderate multilevel degenerative spondyloarthropathy of the cervical spine. 3. Small right posterior scalp hematoma. No associated osseous abnormalities. Electronically signed by: Michael Canales DO 05/10/2024 01:03 AM EDT
[2024-05-09 23:11] VITALS: BP 120/51; PULSE 69; RESP 18; TEMP 36.5; O2SAT 100; BMI 20.3
--- NOTE | 2024-05-10 00:26 | ED_ITS ---
HPI - Fall General Chief Complaint: Fall Stated Complaint: Fall in shower hit head/arm on bloodthinners Time Seen by Provider: 05/10/24 00:18 Source: patient Mode of arrival: ambulatory Limitations: no limitations History of Present Illness ED Provider: Dr. Corine Stockton HPI Narrative: patient comes to the emergency room complaining of a fall. Patient states that she was trying to into the shower, stepped into the bathtub, it was slippery, fell backwards and hit the back of her head. Patient states that on the way down, she hit her right forearm in the vanity drawer and now has a skin flap to the right forearm. Patient states that she did not lose consciousness. Patient states that she used a bit achy but no significant neck pain. Patient was able to get up by herself. Patient's friend accompanied her to the emergency room. Related Data Home Medications ?Medication ?Instructions ?Recorded ?Confirmed aspirin 81 mg tablet,delayed 81 mg PO DAILY 11/27/20 01/31/24 release cholecalciferol (vitamin D3) 25 25 mcg PO DAILY 11/27/20 01/31/24 mcg (1,000 unit) capsule acetaminophen 500 mg tablet 500 mg PO Q6H PRN 05/31/21 01/31/24 clobetasol 0.05 % topical ointment 1 appl topical DAILY 12/06/21 01/31/24 estradiol 0.01% (0.1 mg/gram) 1 g vaginal 2XW 12/06/21 01/31/24 vaginal cream Previous Rx's ?Medication ?Instructions ?Recorded alendronate 70 mg tablet 70 mg PO QWEEK #12 tabs 12/06/23 naproxen 250 mg tablet 250 mg PO BID PRN pain #30 tabs 12/28/23 metoprolol succinate 25 mg 25 mg PO DAILY #90 tabs 03/07/24 tablet,extended release 24 hr Allergies Allergy/AdvReac Type Severity Reaction Status Date / Time No Known Allergies Allergy Verified 05/09/24 23:12 Review of Systems Review of Systems: Constitutional : No Weight loss, No Fever, No Chills, No Night Sweats, No Fatigue, No Malaise ENT/Mouth : No Hearing loss, No Ear Pain, No Nasal Congestion, No Sinus Pain, No Hoarseness, No sore throat, No Rhinorrhea, No Swallowing Difficulty Eyes: No Eye Pain, No Swelling, No Redness, No Foreign Body, No Discharge, No Vision Changes Cardiovascular : No Chest Pain, No SOB, No Dyspnea on Exertion, No Orthopnea, No Edema, No Palpitations Respiratory : No Cough, No Sputum, No Wheezing, No Smoke Exposure, No Dyspnea Gastrointestinal : No Nausea, No Vomiting, No Diarrhea, No Constipation, No abdominal Pain, No Hematochezia, No Melena Genitourinary : no irregular bleeding, No Dysuria, No Urinary Frequency, No Hematuria, No Urinary Incontinence, No Urgency, No Flank Pain, No Urinary Flow Changes, No Hesitancy Musculoskeletal : my posterior head and neck pain after a fall, no lacerations. No joint pain, No Myalgias, No Joint Swelling Skin : Complaining of a skin abrasion/flap Neuro : No Weakness, No Numbness, No Paresthesias, No Loss of Consciousness, No Dizziness, No Headache Psych : No Anxiety/Panic, No Depression, No SI/HI/AH/VH, No Social Issues, Heme/Lymph: No Bruising, No Bleeding,No Lymphadenopathy Endocrine : No Polyuria, No Polydipsia, No Temperature Intolerance [facility] Past Medical History Medical History Tarlov cyst Allergic rhinitis Chronic leukopenia Vitamin B12 deficiency anemia Raynaud's syndrome Vitamin D deficiency Osteoporosis Lumbar degenerative disc disease Patent foramen ovale with atrial septal aneurysm Premature atrial contractions Premature ventricular contractions (PVCs) (VPCs) Pure hypercholesterolemia Normal colonoscopy (~11/06/18) Surgical History History of total hysterectomy History of removal of cyst History of hand surgery Family History Family History Father No problems noted. Mother No problems noted. Social History Social History Housing: House Alcohol intake: former Patient Tobacco Use Status: Never used Tobacco Smoked in Last 30 Days: No e-Cigarette/Vaping Use: Never Used Second Hand Smoke Exposure: No Use of substances other than those prescribed or required for medical reasons: No Advance Directives: Yes Advance Directives Information Provided: No Advance Directives on File: No Do you have a plan to hurt others: No Plan service: No Current occupational status: retired Cognitive needs: No Hearing needs: No Vision needs: No Physical Exam Vital Signs: Vital Signs: Last Vital Signs Temp 97.7 F 05/09/24 23:11 Pulse 69 05/09/24 23:11 Resp 18 05/09/24 23:11 BP 120/51 L 05/09/24 23:11 Pulse Ox 100 05/09/24 23:11 O2 Del Method Room Air 05/09/24 23:11 BMI result Body Mass Index 20.3 Const: Other: Appearance: Alert. Oriented X3. No acute distress. Eyes: Pupils equal, round and reactive to light. ENT: Pharynx normal. Neck: Normal inspection. Neck supple. No lymph nodes noted. No crepitus , no cervical spine tenderness, no palpable step-offs, normal range of motion with flexion and extension CVS: Normal heart rate and rhythm. Pulses normal. Normal S1 and S2 Respiratory: No respiratory distress. Breath sounds normal. No Wheezing. No rales Abdomen: Soft and nontender. No rigidity. No distention. Skin: Skin warm and dry. Normal skin color. Normal skin turgor. in the right forearm, there is a 2 cm skin flap, superficial, stitches not needed, Extremities: No lower extremity edema. No Lacerations. No Rash Neuro: Oriented X 3. No motor deficit. No sensory deficit. Moving all extremities. No slurred speech. CN 2 through 12 grossly intact Psych: calm, cooperative, normal affect Medical Decision Making Medical Decision Making MDM Narrative: my interpretation of head and cervical spine CT, no acute findings. No intracranial bleed, no cervical spine fractures or subluxations - Steri-Strips were applied the patient's forearm - my interpretation of urinalysis, no UTI, patient has no UTI symptoms Differential Diagnosis Differential Diagnoses: The differential diagnosis associated with the presentation includes ( contusion, concussion, cervical spine injury) Admission/Observation Consideration of admission/observation: Escalation of care including admission/observation considered ( given patient's mechanism of injury, observation was considered) Lab Data Labs: Lab Results 05/10/24 Range/Units 00:27 Urine Color Yellow Urine Appearance Clear Urine pH 6.5 (5.0-9.0) Ur Specific [place] 1.010 (1.005-1.025) Urine Protein Negative (Neg-Trace) mg/dL Urine Glucose (UA) Negative (Negative) mg/dL Urine Ketones Negative (Negative) mg/dL Urine Blood Negative (Negative) Urine Nitrite Negative (Negative) Ur Leukocyte Esterase Trace H (Negative) Urine RBC 0-2 (0-2) /HPF Urine WBC 0-5 (0-5) /HPF Ur Squamous Epith Cells 0-2 (0-2) /HPF Urine Bacteria None Seen (None Seen) Hyaline Casts 0-2 (0-2) /LPF Independent Interpretation I performed an independent interpretation of an: CT Scan Radiology Impression Discussion of test interpretation with radiology: I have reviewed the radiologist's reading. Radiologist Impression: Head: There is no evidence of acute intracranial hemorrhage or edematous territorial infarction. [place]-white matter differentiation is preserved. A few foci of hypoattenuation in the periventricular and deep white matter are consistent with mild microangiopathy. Proportional prominence of the ventricles and sulcal spaces without evidence of obstructive hydrocephalus. No abnormal mass effect or midline shift. No extra-axial fluid collections. Small subgaleal hematoma along the right posterior vertex, measuring up to 0.4 cm in depth. No associated acute osseous abnormalities. Mild mucosal thickening of the paranasal sinuses. Moderate leftward nasal septal deviation. The mastoid air cells and middle ear cavities are clear. Cervical Spine: The atlantooccipital and atlantoaxial articulations remain well aligned. Moderate degenerative arthropathy of the atlantodental articulation. Straightening of the normal cervical lordosis. Moderate degenerative stepwise retrolistheses of C5-C7. Otherwise, there is anatomic alignment of the vertebral bodies and posterior elements. No evidence of acute fracture or subluxation. The vertebral body heights are maintained. Advanced degenerative disc disease from C5 to C7. Moderate degenerative disc disease at C4-C5. Facet and uncovertebral joint arthropathy leads to osseous encroachment on the neural foramina from C3-C7. There is no prevertebral soft tissue swelling. The thyroid gland and remaining cervical soft tissues are within normal limits. The lung apices demonstrate no abnormalities. CT/CT head/brain wo IV con IMPRESSION: 1. No evidence of acute intracranial hemorrhage or edematous territorial infarction. Mild underlying microangiopathy and generalized cerebral volume loss. 2. No evidence of acute fracture or traumatic subluxation of the cervical spine. Moderate multilevel degenerative spondyloarthropathy of the cervical spine. 3. Small right posterior scalp hematoma. No associated osseous abnormalities. Critical Care Time Critical Care Time Critical Care Time: Yes Total Critical Care Time: 30 Attestation: I have personally provided critical care time. Time includes review of lab data, radiology results, discussion with consultants, and monitoring for potential decompensation. Intervention performed as documented. Discharge Plan Discharge Clinical Impression: Fall, Multiple contusions, Abrasion of skin Patient Disposition: Home, Self-Care Instructions: Fall Prevention for Older Adults (ED), Contusion in Adults (ED), Skin Tear (ED) Additional Instructions: Please follow-up with your primary care physician tomorrow. If you have any worsening or new symptoms, please return to the emergency room or call 911 Prescriptions: No Action alendronate 70 mg tablet 70 mg PO QWEEK Qty: 12 1RF Rx Instructions: To be taken first thing in the morning on an empty stomach with a full glass of water; patient has to stay upright for at least the next 30 minutes and should not eat or drink anything else for 30 to 60 minutes after taking the medication metoprolol succinate 25 mg tablet extended release 24 hr 25 mg PO DAILY Qty: 90 3RF acetaminophen 500 mg tablet 500 mg PO Q6H PRN aspirin 81 mg tablet,delayed release (DR/EC) 81 mg PO DAILY cholecalciferol (vitamin D3) 25 mcg (1,000 unit) capsule 25 mcg PO DAILY clobetasol 0.05 % ointment 1 appl topical DAILY estradiol 0.01 % (0.1 mg/gram) cream 1 g vaginal 2XW naproxen 250 mg tablet 250 mg PO BID PRN (Reason: pain) Qty: 30 0RF Rx Instructions: Take it with food and full glass of water Print Language: [place]
[2024-05-10 00:36] LABS: Appearance Urine Clear; Color Urine Yellow; Glucose Urine UA Negative (Negative); Leukocyte Esterase Urine Trace (Negative); Nitrite Urine Negative (Negative); PH 6.5 (5.0-9.0); UMIC TRIGGER UACC YES; Urine Blood Negative (Negative); Urine Ketones Negative (Negative); Urine Protein Negative (Neg-Trace)
[2024-05-10 00:41] LABS: Bacteria Urine None Seen (None Seen); Hyaline Casts Urine 0-2 /LPF (0-2); RBC Urine 0-2 /HPF (0-2); Squamous Epithelial Cell Urine 0-2 /HPF (0-2); WBC Urine 0-5 /HPF (0-5)
[2024-05-10 01:23] VITALS: BP 131/57; PULSE 75; RESP 18; TEMP 36.6; O2SAT 98
[2024-05-10 01:31] VITALS: BP 131/57; PULSE 75; RESP 18; TEMP 36.6; O2SAT 98
== END 2024-05-10 01:32 | disposition home or self-care (01) ==
PROVIDERS: Emergency Provider Emergency Medicine; PCP Internal Medicine
DX: S50.811A Abrasion of right forearm, initial encounter (principal); S09.90XA Unspecified injury of head, initial encounter; M54.2 Cervicalgia; R51.9 Headache, unspecified; W01.10XA Fall on same level from slipping, tripping and stumbling with subsequent striking against unspecified object, initial encounter; Y93.E1 Activity, personal bathing and showering; Y92.002 Bathroom of unspecified non-institutional (private) residence as the place of occurrence of the external cause; Y99.8 Other external cause status; Z79.899 Other long term (current) drug therapy
CPT/HCPCS: 70450; 72125; 81001; 99284

== ENCOUNTER 2024-05-27 13:44 | Outpatient (AMB) | payer MEDICARE, SELFPAY ==
[2024-05-27 13:48] VITALS: BP 120/60; PULSE 59; O2SAT 100; BMI 20.2
--- NOTE | 2024-05-27 13:48 | A.OFFPC_ITS ---
Vital Signs 05/27/24 13:48 Height 5 ft 1 in Weight 107 lb BMI 20.2 BP 120/60 Blood Pressure Location Lt brachial Position Sitting Pulse 59 Pulse Source Pulse Oximeter Pulse Oximetry (%) 100 Oxygen Delivery Method Room Air Intake Visit Reasons: [facility] 05/10 Fall in Shower Hit Head Intake Note: Patient is here to follow-up after a visit the emergency department at [facility] on 05/10/24. 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 Blowing Weasand: Not Required per policy Accompanied by: Self / Same As Patient Allergies No Known Allergies Allergy (Verified 05/27/24 14:25) Medication List - Last Reconciled 05/27/24 by Bimal Haskins MD acetaminophen 500 mg PO Q6H PRN alendronate 70 mg PO QWEEK aspirin 81 mg PO DAILY cholecalciferol (vitamin D3) 25 mcg PO DAILY clobetasol 0.05% 1 appl topical DAILY estradiol 0.01%(0.1mg/gram) 1 g vaginal 2XW metoprolol succinate ER 25 mg PO DAILY naproxen 250 mg PO BID PRN Tobacco use date assessed: 05/27/24 Fall risk assessment: 1 Fall in past year (05/09/24) Last assessed Fall Risk: 05/27/24 Dental Screening Dental Screen Date: 12/18/23 HPI [facility] 05/10 Fall in Shower Hit Head HPI Details 78-year-old female presents to the [facility] for a sick visit. I am filling in for her regular primary care provider. Patient had a fall in the shower on May 09. She slipped as she was getting into the tub. She could get up on her own, dress up, call her friend to take her to the hospital. CT scan and neck x-rays done in the hospital were unremarkable. Patient has returned back to her activities of daily living. She has started driving, cooking etcetera. 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 Does not smoke or drink. [facility] Medical History Tarlov cyst Allergic rhinitis Chronic leukopenia Vitamin B12 deficiency anemia Raynaud's syndrome Vitamin D deficiency Osteoporosis Lumbar degenerative disc disease Patent foramen ovale with atrial septal aneurysm Premature atrial contractions Premature ventricular contractions (PVCs) (VPCs) Pure hypercholesterolemia Normal colonoscopy (~11/06/18) Surgical History History of total hysterectomy History of removal of cyst History of hand surgery Family History Father No problems noted. Mother No problems noted. Social History Housing: House Alcohol intake: former Patient Tobacco Use Status: Never used Tobacco e-Cigarette/Vaping Use: Never Used Second Hand Smoke Exposure: No service: No Current occupational status: retired Cognitive needs: No Hearing needs: No Vision needs: No Questionnaire Thrive Questionnaire Date Thrive assessed: 12/18/23 TONY-7 AMB Questionnaire TONY-7 Date TONY - 7 assessed: 12/18/23 Source: Developed by Drs. Gilles Chavez, Amber Villanueva, Dorian Geronimo and colleagues, with an educational magali from [employer]. Physical exam (Primary Care) Vital Signs: Last Vital Signs Pulse 59 05/27/24 13:48 BP 120/60 05/27/24 13:48 Pulse Ox 100 05/27/24 13:48 Oxygen Delivery Method Room Air 05/27/24 13:48 BMI result Body Mass Index 20.2 Tobacco/Smoking Status: Tobacco use Status Tobacco use date assessed 05/27/24 05/27/24 13:52 Patient Tobacco Use Status Never used Tobacco 05/27/24 13:52 e-Cigarette/Vaping Use Never Used 05/27/24 13:52 Thrive Assessment: Date of Thrive Assessment Date Thrive assessed 12/18/23 05/27/24 13:52 Const General: cooperative and healthy appearing Nutritional Appearance: well nourished Orientation/consciousness: patient oriented x3 Limitations: no limitations HENMT Other: Scalp: No visible bruising or tenderness. Head: Yes normal to inspection Eyes General: appearance normal, both eyes and all related structures Neck Neck: Yes normal visual inspection Chest Chest palpation & inspection: normal palpation of entire chest wall Resp Effort & Inspection: normal respiratory effort Neuro General: patient oriented x3 Coding Level of Care Code Est Pt Level 4 (58335) Complex EM visit Add On G2211 Diagnoses Contusion of head S00.93XA Assessment & Plan Assessment & Plan (1) Contusion of head: Code(s): S00.93XA - Contusion of unspecified part of head, initial encounter Plan: Diagnostic imaging done at the hospital reviewed. Scalp hematoma described on the CT has now resolved. Patient was reassured.
== END 2024-05-27 14:08 | disposition home or self-care (01) ==
PROVIDERS: PCP Internal Medicine; Visit Provider Internal Medicine
DX: S00.93XA Contusion of unspecified part of head, initial encounter (principal)

== ENCOUNTER → 2024-05-27 13:44 | Outpatient (BNVA) | payer MEDICARE, SELFPAY | PROVIDERS: PCP Internal Medicine; Visit Provider Internal Medicine | DX: S00.93XA Contusion of unspecified part of head, initial encounter (principal) | CPT/HCPCS: 99212 ==

== ENCOUNTER 2024-06-18 09:50 | Outpatient (REF) | payer MEDICARE, SELFPAY ==
[2024-06-18 13:31] LABS: Appearance Urine Clear; Color Urine Yellow; Glucose Urine UA Negative (Negative); Leukocyte Esterase Urine Trace (Negative); Nitrite Urine Negative (Negative); PH 5.5 (5.0-9.0); UMIC TRIGGER UACC YES; Urine Blood Negative (Negative); Urine Ketones Negative (Negative); Urine Protein Negative (Neg-Trace)
[2024-06-18 13:38] LABS: Bacteria Urine None Seen (None Seen); Hyaline Casts Urine 0-2 /LPF (0-2); RBC Urine 0-2 /HPF (0-2); WBC Urine 0-5 /HPF (0-5)
[2024-06-18 14:08] LABS: MANUAL DIFF FLAG NO
[2024-06-18 14:11] LABS: Basophils Absolute Auto 0.1 X10*3/uL (0.0-0.2); Basophils Percent Auto 1.2 % (0-2); Eosinophils Absolute Auto 0.2 X10*3/uL (0.0-0.4); Eosinophils Percent Auto 3.9 % (0-4); Hematocrit 42.2 % (37.0-47.0); Hemoglobin 13.3 g/dl (12.0-16.0); Imm Gran Abs Auto 0.01 X10*3/uL (0.00-0.03); Imm Gran Pct Auto 0.2 % (0.0-0.4); Lymphocytes Absolute Auto 1.1 X10*3/uL (1.2-4.9); Lymphocytes Percent Auto 27.2 % (20-40); Mean Corpuscular HGB Conc 31.5 g/dl (31.0-35.0); Mean Corpuscular Hemoglobin 31.7 pg (27.0-33.0); Mean Corpuscular Volume 100.7 fL (80.0-98.0); Mean Platelet Volume 10.5 fL (9.4-12.3); Monocytes Absolute Auto 0.4 X10*3/uL (0.1-1.2); Monocytes Percent Auto 9.2 % (2-11); Neutrophils Absolute Auto 2.4 x10*3/uL (2.0-8.3); Neutrophils Percent Auto 58.3 % (45-73); Platelet Count 230 X10*3/uL (160-400); Red Blood Count 4.19 X10*6/uL (4.20-5.50); Red Cell Distribution Width 13.4 % (11.0-16.0); White Blood Count 4.2 X10*3/uL (4.8-10.8)
[2024-06-18 15:19] LABS: Alanine Aminotransferase 22 U/L (0-31); Albumin Level 3.7 g/dL (3.5-5.0); Alkaline Phosphatase 38 U/L (39-117); Anion Gap 9 (12-20); Aspartate Amino Transferase 30 U/L (5-31); Bilirubin Total 0.4 mg/dL (0.0-1.0); Blood Urea Nitrogen 23 mg/dL (9-16); Calcium 9.1 mg/dL (8.4-10.2); Carbon Dioxide 29 mmol/L (22-29); Chloride 107 mmol/L (96-108); Cholesterol 218 mg/dL (<200); Estimated Glomerular Filt Rate > 60; Glucose Fasting 101 mg/dL (60-99); HDL Cholesterol 65 mg/dL (>40); LDL Cholesterol Calculated 142 mg/dL (<100); Potassium 4.3 mmol/L (3.3-5.1); Sodium 141 mmol/L (135-145); TSH reflex Free T4 1.71 uIU/mL (0.32-4.0); Total Protein 6.6 g/dL (6.5-8.0); Triglycerides 56 mg/dL (<150)
== END 2024-06-18 09:51 | disposition home or self-care (01) ==
LOC: HO.HMGCLDS 09:50
PROVIDERS: PCP Internal Medicine; Visit Provider Internal Medicine
DX: E78.00 Pure hypercholesterolemia, unspecified (principal); D64.9 Anemia, unspecified
CPT/HCPCS: 36415; 80053; 80061; 81001; 84443; 85025

== ENCOUNTER 2024-06-24 10:31 | Outpatient (AMB) | payer MEDICARE, SELFPAY ==
[2024-06-24 10:36] VITALS: BP 118/70; PULSE 63; O2SAT 93; BMI 19.9
--- NOTE | 2024-06-24 10:36 | A.OFFPC_ITS ---
Vital Signs 06/24/24 10:36 Height 5 ft 1 in Weight 105 lb 4 oz BMI 19.9 BP 118/70 Blood Pressure Location Lt brachial Position Sitting Pulse 63 Pulse Source Pulse Oximeter Pulse Oximetry (%) 93 Oxygen Delivery Method Room Air Intake Visit Reasons: 6 Month F/U [employer] Consultant Required: No Accompanied by: Self / Same As Patient Allergies No Known Allergies Allergy (Verified 06/24/24 11:10) Medication List - Last Reconciled 06/24/24 by Elie Eid MD acetaminophen 500 mg PO Q6H PRN alendronate 70 mg PO QWEEK aspirin 81 mg PO DAILY cholecalciferol (vitamin D3) 25 mcg PO DAILY clobetasol 0.05% 1 appl topical DAILY estradiol 0.01%(0.1mg/gram) 1 g vaginal 2XW metoprolol succinate ER 25 mg PO DAILY naproxen 250 mg PO BID PRN Tobacco use date assessed: 06/24/24 Fall risk assessment: 1 Fall in past year Last assessed Fall Risk: 06/24/24 Dental Screening Dental Screen Date: 06/24/24 Did you have a dental visit in the last 12 months?: Yes Did you have a dental problem in the last 6 months where you did not have access to dental care?: No Was dental information given to patient?: Patient has dentist HPI 6 Month F/U HPI Details Patient comes in today for her follow-up visit She continues to experience increased pain over her lower back, especially on the left side with frequent radiation down her left leg She experienced some relief of her symptoms with physical therapy but states that the relief is only partial and temporary She has been seeing pain management for her low back pain and is scheduled to have a repeat MRI of her lumbar spine done in a couple of weeks on 07/06/2024 for further evaluation States that she feels okay otherwise She denies any headaches or dizziness Denies any chest pains, no increased shortness of breath No nausea/vomiting, no abdominal pain No change in bowel habits noted She denies any acute urinary symptoms She had her follow-up labs done last week - to discuss her results COUNTS INCLUDE 234 BEDS AT THE [facility] Medical History Tarlov cyst Allergic rhinitis Chronic leukopenia Vitamin B12 deficiency anemia Raynaud's syndrome Vitamin D deficiency Osteoporosis Lumbar degenerative disc disease Patent foramen ovale with atrial septal aneurysm Premature atrial contractions Premature ventricular contractions (PVCs) (VPCs) Pure hypercholesterolemia Normal colonoscopy (~11/06/18) Surgical History History of total hysterectomy History of removal of cyst History of hand surgery Family History Father No problems noted. Mother No problems noted. Social History Housing: House Alcohol intake: former Patient Tobacco Use Status: Never used Tobacco e-Cigarette/Vaping Use: Never Used Second Hand Smoke Exposure: No service: No Current occupational status: retired Cognitive needs: No Hearing needs: No Vision needs: No Questionnaire PHQ-9 Over the last 2 weeks, how often have you been bothered by any of the following problems? 1. Little interest or pleasure in doing things: not at all 2. Feeling down, depressed, or hopeless: not at all 3. Trouble falling or staying asleep, or sleeping too much: not at all 4. Feeling tired or having little energy: not at all 5. Poor appetite or overeating: not at all 6. Feeling bad about yourself - or that you are a failure or have let yourself or your family down: not at all 7. Trouble concentrating on things, such as reading the newspaper or watching television: not at all 8. Moving or speaking so slowly that other people could have noticed. Or the opposite - being so fidgety or restless that you have been moving around a lot more than usual: not at all 9. Thoughts that you would be better off or of hurting yourself in some way: not at all Total score: 0 Depression Screening Interpretation: Negative Depression Screening Done: Yes [id number] - PHQ-9 Billing: Yes Source: Developed by Drs. Gilles Chavez, Amber Villanuvea, Dorian Geronimo and colleagues, with an educational magali from [employer]. Thrive Questionnaire Date Thrive assessed: 06/24/24 I am a: Patient What is your living situation today?: I have a steady place to live Within the past 12 months, did the food you bought not last and you didn't have the money to get more?: Never true Within the past 12 months, did you worry whether your food would run out before you got money to buy more?: Never true Do you have trouble paying for medicines?: No Do you have trouble getting transportation to medical appointments?: No Do you have trouble paying your heating and electricity bill?: No Do you have trouble taking care of your child, family member or friend?: No Do you have trouble with day-to-day activities such as bathing, preparing meals, shopping, managing finances, etc.?: No Are you currently unemployed and looking for a job?: No Are you interested in more education?: No Please select the resources that you would like help with: None Currently or been in a relationship where the following occur: No concerns reported THRIVE Score: 0 AUDIT C Alcohol Use Questionnaire (AUDIT-C) 1. How often do you have a drink containing alcohol?: Never 3. How often do you have six or more drinks on one occasion?: Never Total Score: 0 Score Reviewed/Action Taken: Yes TONY-7 AMB Questionnaire TONY-7 Date TONY - 7 assessed: 06/24/24 Feeling nervous, anxious, or on edge: 0 = Not at all Not being able to stop or control worryin = Not at all Worrying too much about different things: 0 = Not at all Trouble relaxin = Not at all Being so restless that it is hard to sit still: 0 = Not at all Becoming easily annoyed or irritable: 0 = Not at all Feeling afraid as if something awful might happen: 0 = Not at all Total TONY-7 score (0-4 normal; 5-9 mild; 10-14 moderate; 15-21 severe): 0 Source: Developed by Drs. Gilles Chavez, Amber Villanueva, Dorian Geronimo and colleagues, with an educational magali from [employer]. Review of Systems Const Denies chills, Denies fatigue, Denies fever(s) and Denies headache(s) ENT Denies dysphagia, Denies dizziness, Denies otalgia, Denies headache(s), Denies neck pain, Denies odynophagia and Denies sore throat Card Denies chest pain, Denies irregular heart rhythm, Denies palpitations and Denies dyspnea Resp Denies chest congestion, Denies cough, Denies dyspnea and Denies wheezing GI Denies abdominal pain, Denies constipation, Denies dysphagia, Denies heartburn, Denies diarrhea, Denies nausea, Denies odynophagia and Denies vomiting Denies hematuria, Denies urinary frequency, Denies dysuria, Denies urinary incontinence and Denies urinary urgency Musc Reports back pain (over the lower back, worse with prolonged standing and activity), Denies arthralgias, Denies neck pain and Reports radiating pain into limb (down the back of her left leg) Skin/Breast Denies rash Neuro Denies dizziness, Denies headache(s) and Denies paresthesias Psych Denies anxiety and Denies depression Endo Denies fatigue and Denies palpitations Tenzin/Lymph Denies easy bruising Aller/Immun Denies wheezing Physical exam (Primary Care) Vital Signs: Last Vital Signs Pulse 63 06/24/24 10:36 BP 118/70 06/24/24 10:36 Pulse Ox 93 06/24/24 10:36 Oxygen Delivery Method Room Air 06/24/24 10:36 BMI result Body Mass Index 19.9 Tobacco/Smoking Status: Tobacco use Status Tobacco use date assessed 06/24/24 06/24/24 10:42 Patient Tobacco Use Status Never used Tobacco 06/24/24 10:42 e-Cigarette/Vaping Use Never Used 06/24/24 10:42 PHQ-9: PHQ-9 Score PHQ-9: Total score 0 06/24/24 11:11 Depression Screening Interpretation: Negative Thrive Assessment: Date of Thrive Assessment Date Thrive assessed 06/24/24 06/24/24 10:42 Currently or been in a relationship where the following occur: No concerns reported Const General: no acute distress and alert; No awake HENMT Ears: TM's normal bilaterally and EAC's normal Throat: Yes posterior oropharynx normal and Yes tonsils normal (no TP congestion) Neck Neck: Yes supple and No lymphadenopathy Thyroid: Thyroid normal Resp Auscultation: clear to auscultation bilaterally, no rales and no wheezes Cardio Rate: regular rate Rhythm: regular rhythm Heart sounds: no murmurs GI Palpation (GI): Soft to palpation and nontender Auscultation: normal bowel sounds General: Yes no CVA tenderness Back/Spine/Pelvis Back: no CVA tenderness Thoracic/Lumbar Spine: paraspinal muscle tenderness on the left in the mid lumbar and in the lower lumbar, lumbar spinal tenderness (especially on the left side) and straight leg raise positive left Skin Rashes: no rashes Extrem General: Yes no clubbing, cyanosis or edema Results Reviewed Results Reviewed: Laboratory Tests 06/18/24 06/18/24 10:00 10:05 WBC 4.2 L Hgb 13.3 Hct 42.2 Plt Count 230 Sodium 141 Potassium 4.3 Creatinine 0.65 Estimated GFR > 60 Fasting Glucose 101 H Calcium 9.1 AST 30 ALT 22 Triglycerides 56 Cholesterol 218 H LDL Cholesterol, Calc 142 H HDL Cholesterol 65 TSH 1.71 Ur Specific Mead 1.020 Urine Protein Negative Urine Glucose (UA) Negative Urine Blood Negative Urine Nitrite Negative Ur Leukocyte Esterase Trace H Coding Level of Care Code Est Pt Level 4 (51565) Diagnoses Pure hypercholesterolemia E78.00 Premature ventricular contractions (PVCs) (VPCs) I49.3 Premature atrial contractions I49.1 Patent foramen ovale with atrial septal aneurysm Q21.1 Degeneration of intervertebral disc of lumbar region with discogenic back pain and lower extremity pain M51.362 Disc-related pain type: discogenic back pain and lower extremity pain Age-related osteoporosis without current pathological fracture M81.0 Osteoporosis type: age-related Presence of current pathological fracture: without current pathological fracture Vitamin D deficiency E55.9 Raynaud's disease without gangrene I73.00 Raynaud?s-associated gangrene presence: without gangrene Anemia due to vitamin B12 deficiency, unspecified B12 deficiency type D51.9 Vitamin B12 deficiency anemia type: unspecified B12 deficiency Chronic leukopenia D72.819 Allergic rhinitis, unspecified seasonality, unspecified trigger J30.9 Allergic rhinitis trigger: unspecified Allergic rhinitis seasonality: unspecified Additional Codes PHQ-9 - 64137 - PHQ-9 Billing: Yes ([id number]) Assessment & Plan Assessment & Plan (1) Pure hypercholesterolemia: Code(s): E78.00 - Pure hypercholesterolemia, unspecified Category: Medical Plan: Results of her labs done last week reviewed and discussed with patient - advised that her cholesterol levels (total and LDL) are still elevated and are mostly unchanged from previous Reinforced low cholesterol diet - patient is a vegetarian; still does not wish to start on statins to lower her cholesterol levels Will recheck her labs and fasting lipids in 6 months for follow up (2) Premature ventricular contractions (PVCs) (VPCs): Code(s): I49.3 - Ventricular premature depolarization Category: Medical Plan: Stable/controlled on low dose Metoprolol Echocardiogram done in December 2019 showed no significant abnormalities Repeat Holter monitor done back in February 2023 came out normal She was reportedly advised at her recent cardiology follow-up visit in mid-2022 that she can just see cardiology as needed and does not need to continue following up with them regularly (3) Premature atrial contractions: Code(s): I49.1 - Atrial premature depolarization Category: Medical Plan: Controlled on Metoprolol ER 25 mg QD (4) Patent foramen ovale with atrial septal aneurysm: Code(s): Q21.1 - Atrial septal defect Category: Medical Plan: Echocardiogram done on 11/09/2017 showed the presence of an interatrial septal aneurysm with a PFO Cardiac valvular dopplers and RVSP were all normal LVEF between 60-65% with no wall motion abnormalities noted.? Diastolic function was also noted to be normal for her age Repeat echocardiogram done in December 2019 showed no significant changes or other abnormalities and patient currently has had no acute cardiac symptoms Follow-up with cardiology as scheduled (5) Lumbar degenerative disc disease: Code(s): M51.36 - Other intervertebral disc degeneration, lumbar region Category: Medical Qualifiers: Disc-related pain type: discogenic back pain and lower extremity pain Qualified Code(s): M51.362 - Other intervertebral disc degeneration, lumbar region with discogenic back pain and lower extremity pain Plan: Reinforced activity?and weight lifting restrictions Patient used to go to her chiropractor and/or sack filler PRN to help manage her back pain but states that her low back pain has been increasing / worsening lately to a point now wherein she has a hard time moving around in the late rn when her low back pain flares up Lumbar spine x-rays repeated back in January 2024 revealed marked rotatory scoliosis of the lumbar spine, convex left, severe multilevel degenerative disc disease and multilevel degenerative facet joint disease, grade 1 anterolisthesis of L4 on L5 and left lateral translation of L3 with respect to L4 with new bridging osteophyte formation along the right lateral aspect of the L3-L4 disc space SI joint x-rays came back normal She is currently following up with pain management for low back pain and is scheduled to have a repeat MRI of the lumbar spine done in a couple of weeks for further evaluation (6) Osteoporosis: Code(s): M81.0 - Age-related osteoporosis without current pathological fracture Category: Medical Qualifiers: Osteoporosis type: age-related Presence of current pathological fracture: without current pathological fracture Qualified Code(s): M81.0 - Age- related osteoporosis without current pathological fracture Plan: Repeat BMD done in December 2022 showed a significant decline in her BMD from previous in July 2019, and her T-score is now at -3.5 She was started on Alendronate 70 mg Q week back then (December 2022) and she has been tolerating her Rx so far She was also referred to endocrinology and is now seeing Dr. Paz for further management Fall precautions reinforced Patient reminded to continue oral calcium and vitamin-D supplements daily and exercise regularly and stay active We will have her get a repeat BMD at her next appointment in December 2024 for follow-up (7) Vitamin D deficiency: Code(s): E55.9 - Vitamin D deficiency, unspecified Category: Medical Plan: Continue Vitamin D3 1000 units QD (8) Raynaud's syndrome: Code(s): I73.00 - Raynaud's syndrome without gangrene Category: Medical Qualifiers: Raynaud?s-associated gangrene presence: without gangrene Qualified Code(s): I73.00 - Raynaud's syndrome without gangrene Plan: Reinforced avoidance of extremes of temperature (especially cold) to minimize her symptoms (9) Vitamin B12 deficiency anemia: Code(s): D51.9 - Vitamin B12 deficiency anemia, unspecified Category: Medical Qualifiers: Vitamin B12 deficiency anemia type: unspecified B12 deficiency Qualified Code(s): D51.9 - Vitamin B12 deficiency anemia, unspecified Plan: Corrected (10) Chronic leukopenia: Code(s): D72.819 - Decreased white blood cell count, unspecified Category: Medical Plan: Stable - will continue to monitor this regularly (11) Allergic rhinitis: Code(s): J30.9 - Allergic rhinitis, unspecified Category: Medical Qualifiers: Allergic rhinitis trigger: unspecified Allergic rhinitis seasonality: unspecified Qualified Code(s): J30.9 - Allergic rhinitis, unspecified Plan: Continue OTC Loratadine 10 mg or Fexofenadine 180 mg QD PRN Plan Follow-up in 6 months Orders: Orders UA CC w/rflx Micro + Cult 6 Months R30.0 - Dysuria Vitamin D 25-OH Total 6 Months E55.9 - Vitamin D deficiency, unspecified Vitamin B12 and Folate 6 Months E53.8 - Deficiency of other specified B group vitamins Complete Blood Count Auto Diff 6 Months D64.9 - Anemia, unspecified Comprehensive [place]. Panel Fast 6 Months E78.00 - Pure hypercholesterolemia, unspecified Lipid Panel 6 Months E78.00 - Pure hypercholesterolemia, unspecified TSH reflex Free T4 6 Months E78.00 - Pure hypercholesterolemia, unspecified
== END 2024-06-24 11:23 | disposition home or self-care (01) ==
PROVIDERS: PCP Internal Medicine; Visit Provider Internal Medicine
DX: E78.00 Pure hypercholesterolemia, unspecified (principal); I49.3 Ventricular premature depolarization; I49.1 Atrial premature depolarization; Q21.10 Atrial septal defect, unspecified; M51.362 Other intervertebral disc degeneration, lumbar region with discogenic back pain and lower extremity pain; M81.0 Age-related osteoporosis without current pathological fracture; E55.9 Vitamin D deficiency, unspecified; I73.00 Raynaud's syndrome without gangrene; D51.9 Vitamin B12 deficiency anemia, unspecified; D72.819 Decreased white blood cell count, unspecified; J30.9 Allergic rhinitis, unspecified

== ENCOUNTER → 2024-06-24 10:31 | Outpatient (BNVA) | payer MEDICARE, SELFPAY | PROVIDERS: PCP Internal Medicine; Visit Provider Internal Medicine | DX: E78.00 Pure hypercholesterolemia, unspecified (principal); I49.3 Ventricular premature depolarization; I49.1 Atrial premature depolarization; Q21.10 Atrial septal defect, unspecified; M51.362 Other intervertebral disc degeneration, lumbar region with discogenic back pain and lower extremity pain; M81.0 Age-related osteoporosis without current pathological fracture; E55.9 Vitamin D deficiency, unspecified; I73.00 Raynaud's syndrome without gangrene; D51.9 Vitamin B12 deficiency anemia, unspecified; D72.819 Decreased white blood cell count, unspecified; J30.9 Allergic rhinitis, unspecified | CPT/HCPCS: 96127; 99212 ==

== ENCOUNTER 2024-07-02 15:42 | Outpatient (REF) | payer MEDICARE, SELFPAY | END 2024-07-02 15:43 | disposition home or self-care (01) | LOC: HO.MAMMO 15:42 | PROVIDERS: PCP Internal Medicine; Visit Provider Internal Medicine | DX: Z12.31 Encounter for screening mammogram for malignant neoplasm of breast (principal) | CPT/HCPCS: 77063; 77067 ==

== ENCOUNTER → 2024-07-02 16:00 | Outpatient (BNV) | payer MEDICARE, SELFPAY | PROVIDERS: PCP Internal Medicine; Visit Provider Internal Medicine | DX: Z12.31 Encounter for screening mammogram for malignant neoplasm of breast (principal) | CPT/HCPCS: 77063; 77067 ==

== ENCOUNTER 2024-07-06 09:17 | Outpatient (REF) | payer MEDICARE, SELFPAY ==
--- NOTE | ~2024-07-06 | MR_ITS ---
EXAMINATION: MR LUMBAR SPINE WITHOUT CONTRAST CLINICAL INFORMATION: Please evaluate S3 Tarlov cyst COMPARISON: MRI lumbar spine on 11/17/2010 TECHNIQUE: MRI of the lumbar spine was obtained using routine sequences without contrast. FINDINGS: Interval progressed levocurvature of the lumbar spine, now moderate to severe in degree. Grade 1 anterolisthesis at L5-S1. Diffusely heterogeneous bone marrow signal is degenerative. The vertebral body heights are preserved. Multilevel disc desiccation and disc height loss, worse and severe at L2-3, L3-4, and L4-5. Multilevel endplate osteophytosis. The visualized spinal cord is normal in caliber. No abnormal cord signal. The conus medullaris terminates at L2. T12-L1: Bilateral facet arthrosis. No significant spinal canal or neural foraminal narrowing. L1-2: Diffuse disc bulge and bilateral facet arthrosis. Mild right neural foraminal narrowing, new. No significant spinal canal stenosis. L2-3: Diffuse disc bulge and bilateral facet arthrosis. Mild to moderate right neural foraminal narrowing, similar to prior. No significant spinal canal stenosis. L3-4: Shallow disc bulge and bilateral facet arthrosis. Mild spinal canal stenosis, new. Moderate right greater than left left neural foraminal narrowing, similar to prior. L4-5: Diffuse disc bulge and bilateral facet arthrosis. There is significant distortion of the spinal canal with mild to moderate spinal canal stenosis, unchanged. Moderate to severe right and moderate left neural foraminal narrowing with the disc abutting the exiting L4 nerve roots bilaterally, unchanged. L5-S1: Diffuse disc bulge and bilateral facet arthrosis. Distortion of the spinal canal without significant spinal canal stenosis. Severe left neural foraminal narrowing with impingement of the left exiting L5 nerve roots, unchanged. There is diffuse atrophy of the paraspinal musculature. Multiple cystic structures scattered through the imaged right hepatic lobe. MR/MR lumbar spine wo con IMPRESSION: -Images of the lumbosacral region explained to the level of S1-S2. The remainder of the sacrum is below the field of view. -Overall, interval progression of multilevel degenerative changes as detailed level. There is worsening lumbar levoscoliosis. Mild to moderate spinal canal stenosis at L4-5 remains unchanged. There is however new mild spinal canal stenosis at L3-4. Multilevel neural foraminal narrowing, worse and severe at L5/S1 on the left where there is impingement of the left exiting L5 nerve roots. Electronically signed by: Erica Good MD 07/06/2024 10:49 AM ELLEN RODGERS
== END 2024-07-06 09:18 | disposition home or self-care (01) ==
LOC: HO.MRI 09:17
PROVIDERS: PCP Internal Medicine; Visit Provider Nurse Practitioner Family
DX: M41.9 Scoliosis, unspecified (principal); G96.191 Perineural cyst; M54.17 Radiculopathy, lumbosacral region; M81.0 Age-related osteoporosis without current pathological fracture; M43.16 Spondylolisthesis, lumbar region; M51.369 Other intervertebral disc degeneration, lumbar region without mention of lumbar back pain or lower extremity pain
CPT/HCPCS: 72148

== ENCOUNTER 2024-07-19 13:12 | Outpatient (AMB) | payer MEDICARE, SELFPAY ==
--- NOTE | 2024-07-19 13:16 | MHC.OFFVIS ---
Vital Signs 07/19/24 13:20 Height 5 ft 1 in Weight 108 lb 2 oz BMI 20.4 BP 122/58 L Blood Pressure Location Lt brachial Position Sitting Pulse 74 Pulse Source Pulse Oximeter Pulse Oximetry (%) 98 Oxygen Delivery Method Room Air Intake Visit Reasons: MRI follow up Intake Note: Pain today 09/23 Funeral Pre Need Consultant Required: No Accompanied by: Other Relationship Allergies No Known Allergies Allergy (Verified 07/19/24 13:21) HPI Comments Details: Patient presents today for follow up to discuss recent lumbar spine MRI results. Denies any recent cough, cold, infection, fever or any significant changes in medical history since last office visit, except fall in April 2024 with follow up at [facility] and recent left facial injury when she drove up to her mail box and was picking up her letter which fell and as she was getting up she hit her left side of the face against mailbox door. She presents with healing bruising to the left side of her face and healing abrasion to left temporal area. She declines seeing PCP or ER for this. Denies any loss of consciousness, dizziness, chest pain or shortness of breath. Patient lives independently and regularly walks her dogs as well walks with her friends. She reports she has assistive devices at home if needed. Reports progressivly worsening left buttock and left leg weakness and numbness. PRIOR: Patient presents today for follow up after PT. She continues to endorse left sided lower back pain with radiation into left buttock which is constant and left calf and foot with walking and standing. She has to lean forward often when walking to relieve her back and radicular symptoms. Patient completed 9 session of physical therapy and continues home exercise program with partial improvement in her functioning but continues to be in significant pain, especially in the late afternoon with movements and after daily activity. Pain prevents her from prolonged standing or walking. Denies any fever or chills, bladder or bowel dysfunction or saddle anesthesia. PRIOR Dr. Meng: 78-year-old female who presents to the office for status post sacroiliac joint injection. No significant relief was noted from the diagnostic assignment injection. She continues to have pain back going down her left calf and buttocks. Her MRI was denied due to lack of recent physical therapy. Past Procedure: 01/25/24: Left diagnostic sacroiliac joint injection: no significant relief PRIOR: Patient is a pleasant 78 years old female with history of osteoporosis, lumbar degenerative disc disease, arthritis, headaches, atrial septal aneurysm and PFO on low-dose aspirin, presents today for initial evaluation of lower back pain and left hip pain. Denies any recent trauma, injury, or falls. She completed lumbar spine MRI in 2010, was told by Neurosurgeon you have to learn to live with this and was deemed nonsurgical. Patient has pending lumbar spine x-ray and sacroiliac joint x-ray results. Back pain is axial, worse with lumbar extension and also radiates into her left buttock that radiates down posterior aspect of left leg, especially left outer calf but not into the perineum. Patient reports left medial foot and ankle burning with aching and tingling sensations and aching and stabbing sensations in her left low back and left buttock. Prolonged sitting does not increase left buttock pain but she has to adjust her sitting position periodically. Leaning forward will temporary alleviate her low back pain. Reports urinary incontinence for 15 years, which partially improved with Bulkamid Urethral Bulking System 3 years ago. She has not seen Urology for about one year. Pain is consistent with left sided sacroiliac joint pain with left L5-S1 radicular symptoms. Patient reports she never was able to sit reema crossed since childhood years. Denies previous back injections but exhausted conservative treatments with continued and worsening left sided low back pain. She also meditates and continues home exercise program despite the pain. Pain is constant, and worse at afternoon and evenings, rated at 8-9/10. Currently rates pain at 3/10. Pain affects her daily activities, functioning, mobility, sleep, and social interactions. Denies any fever, abdominal or groin pain, bowel dysfunction or saddle anesthesia. Reports mild left lower leg somatic weakness. Denies smoking or alcohol consumption or illicit substance use. She drinks 1 cup of caffeinated and 1 cap decaffeinated coffee daily. Location: Lower back radiates into left buttock and left leg posteriorly Duration: Chronic pain for >10 + years, worsening last several months Characteristics of symptom or complaint: Aching, cramping, stabbing, shooting, tight, tingling, burning, radiating Aggravating or associated factors: Standing, walking, cold weather, changing positions Relieving factors: Rest, ice and heat, prednisone, Tylenol, CBD lotion, Arnicare/Arnica cream Treatment: PT, chiropractor, acupuncture, SIJ belt, massage, stretching exercises [facility] Medical History Tarlov cyst Allergic rhinitis Chronic leukopenia Vitamin B12 deficiency anemia Raynaud's syndrome Vitamin D deficiency Osteoporosis Lumbar degenerative disc disease Patent foramen ovale with atrial septal aneurysm Premature atrial contractions Premature ventricular contractions (PVCs) (VPCs) Pure hypercholesterolemia Normal colonoscopy (~11/06/18) Surgical History History of total hysterectomy History of removal of cyst History of hand surgery Family History Father No problems noted. Mother No problems noted. Social History Housing: House Alcohol intake: former Patient Tobacco Use Status: Never used Tobacco e-Cigarette/Vaping Use: Never Used Second Hand Smoke Exposure: No service: No Current occupational status: retired Cognitive needs: No Hearing needs: No Vision needs: No Review of Systems Const All systems reviewed & are unremarkable except as noted in HPI and below Physical Exam Vital Signs: Last Vital Signs Pulse 74 07/19/24 13:20 BP 122/58 L 07/19/24 13:20 Pulse Ox 98 07/19/24 13:20 Oxygen Delivery Method Room Air 07/19/24 13:20 BMI result Body Mass Index 20.4 General: Appears afebrile. Alert and oriented. Mood and affect appropriate. Follows and participates in conversation appropriately. Respiratory effort is unlabored. No cough. Able to transition from sit to stand unassisted. Mildly antalgic gait. Ambulates with bilaterally normal heel strike and toe off. Reports LLE weakness due to pain and numbness. General: Yes no CVA tenderness Back/Spine/Pelvis Other: Limited lumbar ROM due to pain. Flexion forward temporary alleviates her radicular symptoms. No midline tenderness to palpation in the thoracic or lumbar spine. Strength 5/5 right and 4/5 left hip flexion bilaterally. Mild tenderness to bilateral GTB. Mild sensation loss left lower extremity posteriorly. Diminished DTR intact, no clonus. Limited BHUMIKA test reproduces left lateral hip with mild groin and moderate left lower back pain. +Moderate TTP in projection of left SIJ areas. Limited +Rom?s, Stinchfield, Pelvic Compression positive on the left. Back: no CVA tenderness Cervical Spine: loss of normal cervical lordosis, cervical muscular tenderness and No Cervical spine tenderness Thoracic/Lumbar Spine: thoracic and lumbar spine normal to inspection, No Thoracic/lumbar spine scar(s), kyphosis (mild), Lasegue's sign positive on the left and diffuse, pain with thoraco-lumbar ROM, paraspinal muscle tenderness, thoraco-lumbar ROM limited, Thoracic/lumbar scoliosis (lower lumbar spine), No thoracic spinal tenderness, lumbar spinal tenderness (L4-S1) and straight leg raise positive left at 50 degrees Pelvis: buttock tenderness on the left and sciatic notch tenderness on the left Sacroiliac joints: on the right nontender and on the left tender to palpation Extrem General: Yes capillary refill normal, Yes no clubbing, cyanosis or edema and Yes no calf tenderness Results Reviewed Results Reviewed: MR LUMBAR SPINE WITHOUT CONTRAST 07/06/24 CLINICAL INFORMATION: Please evaluate S3 Tarlov cyst COMPARISON: MRI lumbar spine on 11/17/2010 TECHNIQUE: MRI of the lumbar spine was obtained using routine sequences without contrast. FINDINGS: Interval progressed levocurvature of the lumbar spine, now moderate to severe in degree. Grade 1 anterolisthesis at L5-S1. Diffusely heterogeneous bone marrow signal is degenerative. The vertebral body heights are preserved. Multilevel disc desiccation and disc height loss, worse and severe at L2-3, L3-4, and L4-5. Multilevel endplate osteophytosis. The visualized spinal cord is normal in caliber. No abnormal cord signal. The conus medullaris terminates at L2. T12-L1: Bilateral facet arthrosis. No significant spinal canal or neural foraminal narrowing. L1-2: Diffuse disc bulge and bilateral facet arthrosis. Mild right neural foraminal narrowing, new. No significant spinal canal stenosis. L2-3: Diffuse disc bulge and bilateral facet arthrosis. Mild to moderate right neural foraminal narrowing, similar to prior. No significant spinal canal stenosis. L3-4: Shallow disc bulge and bilateral facet arthrosis. Mild spinal canal stenosis, new. Moderate right greater than left left neural foraminal narrowing, similar to prior. L4-5: Diffuse disc bulge and bilateral facet arthrosis. There is significant distortion of the spinal canal with mild to moderate spinal canal stenosis, unchanged. Moderate to severe right and moderate left neural foraminal narrowing with the disc abutting the exiting L4 nerve roots bilaterally, unchanged. L5-S1: Diffuse disc bulge and bilateral facet arthrosis. Distortion of the spinal canal without significant spinal canal stenosis. Severe left neural foraminal narrowing with impingement of the left exiting L5 nerve roots, unchanged. There is diffuse atrophy of the paraspinal musculature. Multiple cystic structures scattered through the imaged right hepatic lobe. IMPRESSION: -Images of the lumbosacral region explained to the level of S1-S2. The remainder of the sacrum is below the field of view. -Overall, interval progression of multilevel degenerative changes as detailed level. There is worsening lumbar levoscoliosis. Mild to moderate spinal canal stenosis at L4-5 remains unchanged. There is however new mild spinal canal stenosis at L3-4. Multilevel neural foraminal narrowing, worse and severe at L5/S1 on the left where there is impingement of the left exiting L5 nerve roots. MM/XR DEXA axial skeleton 12/28/22 IMPRESSION: 1. DIAGNOSIS: Osteoporosis based on the lowest T-score value of -3.5 in the total femur applying World Health Organization criteria. Assessment & Plan Assessment & Plan (1) Lumbar degenerative disc disease: Code(s): M51.36 - Other intervertebral disc degeneration, lumbar region Category: Medical Qualifiers: Disc-related pain type: discogenic back pain and lower extremity pain Qualified Code(s): M51.362 - Other intervertebral disc degeneration, lumbar region with discogenic back pain and lower extremity pain (2) Spondylolisthesis, lumbar region: Code(s): M43.16 - Spondylolisthesis, lumbar region Category: Medical (3) Lumbar scoliosis: Code(s): M41.9 - Scoliosis, unspecified Category: Medical (4) Lumbar spinal stenosis: Code(s): M48.061 - Spinal stenosis, lumbar region without neurogenic claudication Category: Medical (5) Sacroiliac joint pain: Code(s): M53.3 - Sacrococcygeal disorders, not elsewhere classified Category: Medical (6) Left lumbosacral radiculopathy: Code(s): M54.17 - Radiculopathy, lumbosacral region Category: Medical Plan Lumbar spine MRI has been discussed with patient and friend family. Patient completed 9 session of physical therapy and continues home exercise program with partial improvement in her functioning but continues to be in significant pain, especially in the late afternoon with movements and after daily activity. Patient's back pain is function and mobility limiting and has been resistant to conservative treatments. Due to significant osteoporosis in her lumbar spine, she is not candidate for therapeutic L5-S1 injection. We will proceed with Neurosurgery evaluation as next steps to address her spinal stenosis related pain. Scripts provided for Tylenol and low dose Naproxen for moderate-severe pain. Side effects and precautions were discussed with patient. All questions and concerns have been answered and patient agreed with the treatment plan. Follow-up for MRI results and sooner as needed. Orders: Referrals Neuro Spine Referral M41.9 - Scoliosis, unspecified, M43.16 - Spondylolisthesis, lumbar region, M48.061 - Spinal stenosis, lumbar region without neurogenic claudication Medications: New acetaminophen ER (Arthritis Pain Relief (acetaminophen) ER) 650 mg PO Q8H 30 days PRN 30 tabs 0RF pain M51.362 - Other intervertebral disc degeneration, lumbar region with discogenic back pain and lower extremity pain, M54.50 - Low back pain, unspecified Refilled naproxen Take it with food and full glass of water 250 mg PO BID PRN 60 tabs 0RF pain M51.36 - Other intervertebral disc degeneration, lumbar region, M53.3 - Sacrococcygeal disorders, not elsewhere classified, M54.50 - Low back pain, unspecified Coding Level of Care Code Est Pt Level 4 (66522) Complex EM visit Add On G2211 Diagnoses Degeneration of intervertebral disc of lumbar region with discogenic back pain and lower extremity pain M51.362 Disc-related pain type: discogenic back pain and lower extremity pain Spondylolisthesis, lumbar region M43.16 Lumbar scoliosis M41.9 Lumbar spinal stenosis M48.061 Sacroiliac joint pain M53.3 Left lumbosacral radiculopathy M54.17
[2024-07-19 13:20] VITALS: BP 122/58; PULSE 74; O2SAT 98; BMI 20.4
== END 2024-07-19 13:55 | disposition home or self-care (01) ==
PROVIDERS: PCP Internal Medicine; Visit Provider Nurse Practitioner Family
DX: M51.362 Other intervertebral disc degeneration, lumbar region with discogenic back pain and lower extremity pain (principal); M43.16 Spondylolisthesis, lumbar region; M41.9 Scoliosis, unspecified; M48.061 Spinal stenosis, lumbar region without neurogenic claudication; M53.3 Sacrococcygeal disorders, not elsewhere classified; M54.17 Radiculopathy, lumbosacral region
CPT/HCPCS: 99214; G2211

== ENCOUNTER → 2024-07-19 13:12 | Outpatient (BNVA) | payer MEDICARE, SELFPAY | PROVIDERS: PCP Internal Medicine; Visit Provider Nurse Practitioner Family | DX: M51.362 Other intervertebral disc degeneration, lumbar region with discogenic back pain and lower extremity pain (principal); M43.16 Spondylolisthesis, lumbar region; M41.9 Scoliosis, unspecified; M48.061 Spinal stenosis, lumbar region without neurogenic claudication; M53.3 Sacrococcygeal disorders, not elsewhere classified; M54.17 Radiculopathy, lumbosacral region | CPT/HCPCS: 99212 ==

== ENCOUNTER 2024-07-22 12:56 | Outpatient (REF) | payer SELFPAY | END 2024-07-22 12:57 | disposition home or self-care (01) | LOC: HO.HAP 12:56 | PROVIDERS: Visit Provider Internal Medicine | DX: Z13.89 Encounter for screening for other disorder (principal) ==

== ENCOUNTER 2024-07-24 13:41 | Outpatient (AMB) | payer MEDICARE, SELFPAY ==
--- NOTE | 2024-07-24 14:06 | HO.SPINEOV ---
Vital Signs 07/24/24 14:07 Height 5 ft 1 in Weight 106 lb BMI 20.0 Intake Visit Reasons: LBP Intake Note: Ms. Parish is here today c/o low back pain that radiates to the legs. Flash Developer Required: No Allergies No Known Allergies Allergy (Verified 07/24/24 14:07) Physical Exam Vital Signs: BMI result Body Mass Index 20.0 Assessment & Plan Assessment & Plan (1) Degenerative scoliosis: Code(s): M41.50 - Other secondary scoliosis, site unspecified Category: Medical Plan Dear colleague, Thank you for referring Bonny to our office today. She is a very pleasant 78-year-old female who comes in today with a complaint of low back pain and she into her left lower extremity. When describing her left lower extremity pain she states it starts in her low back shoots into her left buttocks and travels down the lateral aspect of her left leg terminating at the top of her foot. She does report some burning in her left lateral calf that is associated with this pain. She states that she has had low back pain for the past 13 years, but this became much worse about 6 months ago when she began developing shooting pain down the left lateral leg as well. She has been to physical therapy, attempted foster care social worker, and done acupuncture in attempt to mitigate these symptoms. In addition to this she was evaluated by our colleagues in pain management, who are unfortunately unable to do cortisone injections as her osteoporosis is too severe. She does report that she is currently being treated with Fosamax in an effort to mitigate her osteoporosis. In addition to this she was attempted [id number] remedies such as Tylenol, naproxen, and CBD oil. Unfortunately she reports that these have given her very little relief. Thankfully, she states she is still able to ambulate well and can walk 2-3 miles without issue. She was able to complete her grocery shopping and shopping at the store. She states that standing does worsen her pain, and lying down helps to alleviate her pain. PMH: Bigeminy, osteoporosis, lichen sclerosis, osteoarthritis, history of complete hysterectomy in 1991. Social hx: The patient does not smoke, reports no substance use. Medications: See [employer] list. Allergies: See [employer] list. Physical exam: On examination Bonny has 5/5 strength in her upper and lower extremities. She has no significant sensational deficits. She ambulates well and rises from a seated position without difficulty. Her reflexes are 1+ hypoactive in the left patella and 2+ normal elsewhere. (-) bilateral straight leg raise, (-) Soto's, (-) clonus. Imaging review: MRI of the lumbar spine completed here at [facility] shows diffuse disc bulging and facet arthrosis throughout the lumbar spine. There is a degenerative levoscoliosis in the lumbar spine with the apex at L2-3. There is severe disc degeneration at L3-4 causing complete collapse of the disc space and likely auto fusion at this level. At L2-3 there is severe right-sided foraminal stenosis. At L3-4 there is severe right-sided and moderate left-sided foraminal stenosis. At L4-5 there is severe left-sided foraminal stenosis. At L5-S1 there is also severe left-sided foraminal stenosis. Impression: Bonny is a pleasant 78-year-old female who comes in today with a chief complaint of low back pain and shooting pains into her left lower extremity. She states that the shooting pains began about 6 months ago when her symptoms began to worsen. She has a fairly severe levoscoliosis in the lumbar spine that is likely degenerative in nature. This is causing some fairly significant compression on the left which may be attributed to her symptoms. Thankfully, she remains fairly active and functional. She does not feel that it is severely affecting her quality of life at this time. Therefore, she does not believe that surgery is a good option at this point in time. I agree with this, and encouraged her to continue attempting conservative measures. I will order her another course of physical therapy as she found this previously somewhat helpful. She was encouraged to come back to our office and see us in the future if she feels her symptoms worsened to the point where she would like to have a surgical intervention for them. In addition to this I encouraged her to continue following up with her primary care provider to treat her osteoporosis, as she is not a candidate for lumbar fusion due to the severity of this. Thank you for allowing us to care for your patient. The total time spent with this visit with this patient was 45 minutes reviewing history, physical exam, MRI imaging review, and implementation of treatment plan or further diagnostic testing. Bill Lovett MD,PhD [facility] Coding Level of Care Code New Pt Level 4 (13561) Diagnoses Degenerative scoliosis M41.50
== END 2024-07-24 14:50 | disposition home or self-care (01) ==
PROVIDERS: PCP Internal Medicine; Referring Provider Nurse Practitioner Family; Visit Provider Physician Assistant
DX: M51.362 Other intervertebral disc degeneration, lumbar region with discogenic back pain and lower extremity pain (principal)
CPT/HCPCS: 99204

== ENCOUNTER → 2024-07-24 13:41 | Outpatient (BNVA) | payer MEDICARE, SELFPAY | PROVIDERS: PCP Internal Medicine; Referring Provider Nurse Practitioner Family; Visit Provider Physician Assistant | DX: M41.50 Other secondary scoliosis, site unspecified (principal) | CPT/HCPCS: 99202 ==

== ENCOUNTER 2024-08-16 10:21 | Outpatient (REF) | payer MEDICARE, SELFPAY ==
--- NOTE | 2024-08-16 12:50 | MHC.AU.HA3 ---
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 Warranty: 02/21/2025 Hot Iron Worker Loss and Damage Warranty: 02/21/2025 [facility] Service Plan: 02/21/2025 Battery Size: Rechargeable Non Profit Director/Slim Tube: 1 MP Earmold/Dome/CShell/SlimTip:ReSound Slim Tip soft earmold with canal lock SN: [id number] Myra: 09/26/2022 Type of Wax Guard: Dispensed By: [facility] Date of Fittin02/24/2022 Left Ear: Make, Model, Color, Serial Number: ReSound One 7 [id number] KAREN SN: [id number] Color: Gold 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 Cleaned aids and earmolds. Updated fitting software to reflect earmold as it was set to dome. Increased gain to best fit and then reduced to 90%. Patient reported things sounded crisper but comfortable, commented that she recalls that she acclimated to amplification when she first got her aids and feels she will do so again. Encouraged to return if today's changes are problematic. Scheduled appt for January to send aids out for check/battery replacement before end of warranty. Will want loaners. Recommendations: Recommendations: An additional follow-up was scheduled. Diagnosis Code(s): Primary Diagnosis: H90.3 Bilateral Sensorineural Hearing Loss Signature: Provider: Swetha Enciso, [facility]
== END 2024-08-16 10:22 | disposition home or self-care (01) ==
LOC: HO.SH 10:21
PROVIDERS: Visit Provider Internal Medicine
DX: Z01.118 Encounter for examination of ears and hearing with other abnormal findings (principal); H90.3 Sensorineural hearing loss, bilateral
CPT/HCPCS: 92552; 92556

== ENCOUNTER 2024-09-24 13:37 | Outpatient (AMB) | payer MEDICARE, SELFPAY ==
--- NOTE | 2024-09-24 14:25 | AM.OFFWIN_ITS ---
Intake Vital Signs 09/24/24 14:27 Weight 48.137 kg BP 112/72 Blood Pressure Location Rt brachial Position Sitting Intake Visit Reasons: EP-b/l knee pain from a fall Intake Note: Patient here for bilat knee pain after she tripped over her dog this morning and fell while walking the dog. Patient Tobacco Use Status: Never used Tobacco Allergies No Known Allergies Allergy (Verified 09/24/24 14:27) Do you need a note to return to daycare/school/sports/work: No HPI EP-b/l knee pain from a fall HPI Details Patient presents with bilateral knee pain after fall this a.m. while walking her dog. Mechanism of fall is mechanical tripping on sidewalk. Denies LOC or blow to head. Denies pain in other extremities. Of note patient has history of osteoporosis and is on Fosamax. She is ambulatory but there is pain in bilateral anterior knees, abrasion on the anterior left knee. [facility] Medical History Tarlov cyst Allergic rhinitis Chronic leukopenia Vitamin B12 deficiency anemia Raynaud's syndrome Vitamin D deficiency Osteoporosis Lumbar degenerative disc disease Patent foramen ovale with atrial septal aneurysm Premature atrial contractions Premature ventricular contractions (PVCs) (VPCs) Pure hypercholesterolemia Normal colonoscopy (~11/06/18) Surgical History History of total hysterectomy History of removal of cyst History of hand surgery Family History Father No problems noted. Mother No problems noted. Social History Housing: House Alcohol intake: former Patient Tobacco Use Status: Never used Tobacco e-Cigarette/Vaping Use: Never Used Second Hand Smoke Exposure: No service: No Current occupational status: retired Cognitive needs: No Hearing needs: No Vision needs: No Review of Systems Const All systems reviewed & are unremarkable except as noted in HPI and below Physical Exam Vital Signs: Last Vital Signs BP 112/72 09/24/24 14:27 Const General: cooperative, comfortable and no acute distress Orientation/consciousness: patient oriented x3 Resp Effort & Inspection: normal respiratory effort Auscultation: clear to auscultation bilaterally Cardio Rate: regular rate Rhythm: regular rhythm Heart sounds: S1 normal heart sound present and S2 normal heart sound present Neuro General: patient oriented x3 Extrem General: Yes no pedal edema Right lower extremity: normal to inspection, full ROM, normal capillary refill and knee Details: tenderness Location: of the tibial tuberosity and normal ROM (Mild pain with end range extension and flexion) Left lower extremity: full ROM (Pain with end range extension flexion and mild pain with ambulation), normal capillary refill and knee Details: tenderness, swelling, abrasion knee anterior Details: single (3 cm x 3 cm nonbleeding abrasion) and ecchymosis (Discrete area of swelling and ecchymosis) knee anterolateral Results Reviewed Results Reviewed: X-ray images of the bilateral knee reviewed by me. Radiology results are also available with no acute finding. Assessment & Plan Assessment & Plan (1) Contusion of right knee, initial encounter: Code(s): S80.01XA - Contusion of right knee, initial encounter (2) Contusion of left knee, initial encounter: Code(s): S80.02XA - Contusion of left knee, initial encounter Plan Monitor abrasion for signs symptoms of infection, rest ice elevate, Tylenol. Given elastic Rod wrap for left knee swelling. Weight-bearing activity as tolerated. Return to clinic or PCP if symptoms do not improve, discussed risk of missing tibial plateau fractures on x-ray this would need MRI if she continues to have pain over the coming weeks. Orders: Orders XR knee LT 4V Today M25.562 - Pain in left knee XR knee RT 4V Today M25.561 - Pain in right knee Coding Level of Care Code Est Pt Level 4 (22436) Diagnoses Contusion of right knee, initial encounter S80.01XA Contusion of left knee, initial encounter S80.02XA
[2024-09-24 14:27] VITALS: BP 112/72
== END 2024-09-24 16:06 | disposition home or self-care (01) ==
PROVIDERS: PCP Internal Medicine; Visit Provider Physician Assistant
DX: S80.01XA Contusion of right knee, initial encounter (principal); S80.02XA Contusion of left knee, initial encounter

== ENCOUNTER 2024-09-24 13:37 | Outpatient (REF) | payer MEDICARE, SELFPAY ==
--- NOTE | ~2024-09-24 | XR_ITS ---
EXAMINATION: XR KNEE 4 OR MORE VIEWS RIGHT HISTORY: M25.561 - Pain in right knee COMPARISON: There are no prior studies available for comparison. FINDINGS: Four views of the right knee are submitted. The bones are osteopenic. There is no fracture or dislocation. The joint spaces are preserved. There is chondrocalcinosis. There is no joint effusion. XR/XR knee RT 4V IMPRESSION: Osteopenia. No evidence of fracture of the right knee. Electronically signed by: Gilles Maurice MD 09/24/2024 03:06 PM EDT
--- NOTE | ~2024-09-24 | XR_ITS ---
EXAMINATION: XR KNEE 4 OR MORE VIEWS LEFT HISTORY: M25.562 - Pain in left knee COMPARISON: There are no prior studies available for comparison. FINDINGS: Four views of the left knee are submitted. The bones are osteopenic. There is no fracture or dislocation. The joint spaces are preserved. There is chondrocalcinosis. There is no joint effusion. XR/XR knee LT 4V IMPRESSION: Osteopenia. No evidence of fracture of the left knee. Electronically signed by: Gilles Maurice MD 09/24/2024 03:07 PM EDT
== END 2024-09-24 13:38 | disposition home or self-care (01) ==
LOC: HO.HMGCX 13:37
PROVIDERS: PCP Internal Medicine; Visit Provider Physician Assistant
DX: S80.01XA Contusion of right knee, initial encounter (principal); S80.02XA Contusion of left knee, initial encounter
CPT/HCPCS: 73564; 99212

== ENCOUNTER → 2024-09-24 14:52 | Outpatient (BNV) | payer MEDICARE, SELFPAY | PROVIDERS: PCP Internal Medicine; Visit Provider Radiology Diagnostic Radiology | DX: M85.861 Other specified disorders of bone density and structure, right lower leg (principal); M85.862 Other specified disorders of bone density and structure, left lower leg | CPT/HCPCS: 73564 ==

== ENCOUNTER 2024-10-10 13:00 | Outpatient (RCR) | payer MEDICARE, SELFPAY ==
--- NOTE | 2024-07-31 12:27 | MHC.PT.EP ---
[facility] [place] [facility] [place] [facility] [place] [facility] [address] Arielle Hearn [address] [phone] F: [phone] F: [phone] F: [phone] F: [phone] Physical Therapy Plan of Care Date of Evaluation: 07/31/24 Date of Surgery: Diagnosis: This is a 78 yo female presenting to skilled PT with a script for lumbar degenerative disc disease. Assessment: This is a 78 yo female presenting to skilled PT with a script for lumbar degenerative disc disease. 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 Patient is being followed by [facility] [place] [place] pain management and was more recently seen by the spine clinic. She has had a diagnostic assignment injection through pain management without significant relief. Her MRI was previously denied due to lack of PT (however has since been done, see imaging section) and she had PT in the fall of 2023 with some relief. Pain is located across the low back, the L buttock, wraps into the lateral leg and into the ankle, wraps around the top of the foot and arch. Pain can be tight, squeezing, deep and tingling in nature. In terms of activities and pain management she was going to her chiropractor but has been finding that this has not been helping as much anymore (no manipulations noted but soft tissue was performed) and had PT at this clinic about 4 months ago where we did ther-ex, HEP and soft tissue release. She has also been going to a color strainer once in a while for OP dx and works on strengthening, stretching and balance. The patient also walks daily 10,000-12,000 steps a day and meditates daily as well. Last pain management note on 07/19/24: Patient completed 9 session of physical therapy and continues home exercise program with partial improvement in her functioning but continues to be in significant pain, especially in the late afternoon with movements and after daily activity. Patient's back pain is function and mobility limiting and has been resistant to conservative treatments. Due to significant osteoporosis in her lumbar spine, she is not candidate for therapeutic L5-S1 injection. We will proceed with Neurosurgery evaluation as next steps to address her spinal stenosis related pain. Spine clinic note assessment on 07/24/24: Impression: Bonny is a pleasant 78-year-old female who comes in today with a chief complaint of low back pain and shooting pains into her left lower extremity. She states that the shooting pains began about 6 months ago when her symptoms began to worsen. She has a fairly severe levoscoliosis in the lumbar spine that is likely degenerative in nature. This is causing some fairly significant compression on the left which may be attributed to her symptoms. Thankfully, she remains fairly active and functional. She does not feel that it is severely affecting her quality of life at this time. Therefore, she does not believe that surgery is a good option at this point in time. I agree with this, and encouraged her to continue attempting conservative measures. I will order her another course of physical therapy as she found this previously somewhat helpful. She was encouraged to come back to our office and see us in the future if she feels her symptoms worsened to the point where she would like to have a surgical intervention for them. In addition to this I encouraged her to continue following up with her primary care provider to treat her osteoporosis, as she is not a candidate for lumbar fusion due to the severity of this. Assessment reveals pain that ranges from up to a 5/10 at the worst. Patient demos decreased lumbar and hip ROM, strength of core, back and L LE's, TTP at ITB, L piriformis, L PSIS, and impaired posture with scoliosis, forward head and trunk, increased thoracic kyphosis and rounded shoulders. Based on functional limitations, impaired QOL and pain tolerance patient is a good candidate for skilled PT 2x/wk for 4wks. Frequency and Duration: The patient will be seen 2x/wk for 4wks Short Term Goals: Pt will demonstrate improved postural awareness and understanding of core engagement with supine and standing tasks without cues throughout session to improve overall back safety in 2 weeks. Pt will demonstrate centralization of sx in 2 weeks. Pt will continue to reinforce precautions, sitting, standing and ADL modifications with proper body mechanics in 2 wks. Halfway Goals: Pt will demonstrate improved outcome measure by 5 points in 4 weeks for improved functional mobility. Pt will demonstrate ability to bend and lift WNL min to no pain for household tasks in 4 wks. Pt will be I in HEP and compliant in 4wks Pt will report being able to ambulate longer and with less pain Treatment Plan: Modalities to reduce pain, spasms and effusion. Manual therapy to restore motion and function. Therapeutic exercise to improve strength and flexibility. Neuromuscular re-education for posture and balance. Therapeutic activities to return to functional activities of daily living. Electronically signed by: Thalia Miller, PT Please sign and return to therapist. Thank you for your referral.
--- NOTE | 2024-11-07 07:47 | MHC.PT.DC ---
[facility] [place] Office [place] Office [place] [facility] [address] [phone] F: [phone] F: [phone] F: [phone] F: [phone] Physical Therapy Discharge Report Diagnosis: This is a 78 yo female presenting to skilled PT with a script for lumbar degenerative disc disease. Date of Surgery: Date of Evaluation: 07/31/24 Date of Discharge: 11/07/24 Treatments to Date: 11 Cancellations to Date: 0 No Shows to Date: 0 Discharge Status: Improved Function Independent with HEP Discharge Summary: 10/10: Patient has come to 11 sessions of PT. She has improved her pain and met most of her goals. She feels like a therapy hold is a good idea at this point. She goes to exercise every week, walks multiple times daily and understands self trigger point release. DC chart in 30 days if patient does not return. Electronically signed by: Thalia Miller PT Please sign and return to therapist. Thank you for your referral.
== END 2024-11-07 07:47 | disposition home or self-care (01) ==
LOC: HO.PTCHIC 13:00
PROVIDERS: PCP Internal Medicine; Visit Provider Physician Assistant
DX: M51.362 Other intervertebral disc degeneration, lumbar region with discogenic back pain and lower extremity pain (principal)
CPT/HCPCS: 97110; 97140; 97162

== ENCOUNTER 2024-12-10 11:19 | Outpatient (REF) | payer MEDICARE, SELFPAY ==
[2024-12-10 13:21] LABS: MANUAL DIFF FLAG NO
[2024-12-10 13:23] LABS: Appearance Urine Clear; Color Urine Yellow; Glucose Urine UA Negative (Negative); Leukocyte Esterase Urine Trace (Negative); Nitrite Urine Negative (Negative); UMIC TRIGGER UACC YES; Urine Blood Negative (Negative); Urine Ketones Trace mg/dL (Negative); Urine Protein Negative (Neg-Trace)
[2024-12-10 13:30] LABS: Bacteria Urine None Seen (None Seen); Hyaline Casts Urine 0-2 /LPF (0-2); RBC Urine 0-2 /HPF (0-2); WBC Urine 0-5 /HPF (0-5)
[2024-12-10 13:39] LABS: Basophils Percent Auto 0.9 % (0-2); Eosinophils Absolute Auto 0.1 X10*3/uL (0.0-0.4); Eosinophils Percent Auto 2.5 % (0-4); Hematocrit 39.3 % (37.0-47.0); Hemoglobin 12.9 g/dl (12.0-16.0); Lymphocytes Absolute Auto 1.1 X10*3/uL (1.2-4.9); Lymphocytes Percent Auto 24.9 % (20-40); Mean Corpuscular HGB Conc 32.8 g/dl (31.0-35.0); Mean Corpuscular Hemoglobin 32.2 pg (27.0-33.0); Monocytes Absolute Auto 0.3 X10*3/uL (0.1-1.2); Monocytes Percent Auto 7.2 % (2-11); Neutrophils Absolute Auto 2.9 x10*3/uL (2.0-8.3); Neutrophils Percent Auto 64.5 % (45-73); Platelet Count 198 X10*3/uL (160-400); Red Blood Count 4.01 X10*6/uL (4.20-5.50); Red Cell Distribution Width 13.4 % (11.0-16.0); White Blood Count 4.5 X10*3/uL (4.8-10.8)
[2024-12-10 14:04] LABS: Alanine Aminotransferase 38 U/L (0-31); Albumin Level 3.9 g/dL (3.5-5.0); Alkaline Phosphatase 44 U/L (39-117); Anion Gap 11 (12-20); Aspartate Amino Transferase 35 U/L (5-31); Bilirubin Total 0.4 mg/dL (0.0-1.0); Blood Urea Nitrogen 24 mg/dL (9-16); Calcium 9.3 mg/dL (8.4-10.2); Carbon Dioxide 28 mmol/L (22-29); Chloride 106 mmol/L (96-108); Cholesterol 219 mg/dL (<200); Estimated Glomerular Filt Rate > 60; Glucose Fasting 99 mg/dL (60-99); HDL Cholesterol 67 mg/dL (>40); LDL Cholesterol Calculated 143 mg/dL (<100); Potassium 4.1 mmol/L (3.3-5.1); Sodium 141 mmol/L (135-145); Total Protein 6.7 g/dL (6.5-8.0); Triglycerides 47 mg/dL (<150)
[2024-12-10 14:09] LABS: TSH reflex Free T4 1.41 uIU/mL (0.32-4.0); Vitamin D 25-OH Total 96.6 ng/mL (>30)
[2024-12-10 14:12] LABS: Folate 13.9 ng/mL (> or = 4.0); Vitamin B12 235 pg/mL (200-900)
== END 2024-12-10 11:20 | disposition home or self-care (01) ==
LOC: HO.HMGCLDS 11:19
PROVIDERS: PCP Internal Medicine; Visit Provider Internal Medicine
DX: D64.9 Anemia, unspecified (principal); E53.8 Deficiency of other specified B group vitamins; E78.00 Pure hypercholesterolemia, unspecified; E55.9 Vitamin D deficiency, unspecified
CPT/HCPCS: 36415; 80053; 80061; 81001; 82306; 82607; 82746; 84443; 85025

== ENCOUNTER 2024-12-14 16:10 | Emergency (ER) | payer OTHER, SELFPAY ==
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
[2024-12-14 16:20] VITALS: BP 132/78; BP 135/90; PULSE 68; PULSE 79; RESP 13; TEMP 36.6; O2SAT 100; O2SAT 96; BMI 19.9
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
[2024-12-14 16:30] VITALS: BP 132/78; PULSE 76; RESP 14; TEMP 36; O2SAT 100
[2024-12-14] MEDS: Acetaminophen 325 MG TABLET 650 MG PO (18:34)
[2024-12-14 18:50] VITALS: BP 132/78; PULSE 76; RESP 14; TEMP 36; O2SAT 100
== END 2024-12-14 18:50 | disposition home or self-care (01) ==
PROVIDERS: Emergency Provider Internal Medicine; PCP Internal Medicine
DX: S20.219A Contusion of unspecified front wall of thorax, initial encounter (principal); V43.52XA Car driver injured in collision with other type car in traffic accident, initial encounter; Y93.89 Activity, other specified; Y92.414 Local residential or business street as the place of occurrence of the external cause; Y99.9 Unspecified external cause status
CPT/HCPCS: 71250; 99284

== ENCOUNTER → 2024-12-14 16:31 | Outpatient (BNV) | payer MEDICARE, SELFPAY | PROVIDERS: Emergency Provider Internal Medicine; PCP Internal Medicine; Visit Provider Specialist | DX: M41.54 Other secondary scoliosis, thoracic region (principal) | CPT/HCPCS: 71250 ==

== ENCOUNTER 2025-01-03 13:22 | Outpatient (AMB) | payer MEDICARE, SELFPAY ==
[2025-01-03 13:28] VITALS: BP 106/62; PULSE 73; RESP 14; TEMP 36.6; O2SAT 95; BMI 19.9
--- NOTE | 2025-01-03 13:28 | A.OFFPC_ITS ---
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 Accompanied by: Self / Same As Patient Allergies No Known Allergies Allergy (Verified 01/03/25 13:45) Medication List - Last Reconciled 01/04/25 by MADY Melchor acetaminophen ER (Arthritis Pain Relief (acetaminophen) ER) 650 mg PO Q8H PRN 30 days alendronate 70 mg PO QWEEK aspirin 81 mg PO DAILY clobetasol 0.05% 1 appl topical DAILY estradiol 0.01%(0.1mg/gram) 1 g vaginal 2XW metoprolol succinate ER 25 mg PO DAILY Tobacco use date assessed: 01/03/25 Fall risk assessment: 2 + Falls in past year Last assessed Fall Risk: 01/03/25 Dental Screening Dental Screen Date: 01/03/25 Did you have a dental visit in the last 12 months?: Yes Did you have a dental problem in the last 6 months where you did not have access to dental care?: No Was dental information given to patient?: Patient has dentist HPI 6 Months f/u HPI Details The patient is a 79-year-old female presenting with osteoporosis management. She has been on Fosamax for two years, experiencing occasional indigestion and heartburn as side effects. Her last bone density test was in 2012, and she is scheduled for a new one soon. The patient reports a history of scoliosis, which causes her right ribcage to rest on her right hip, contributing to lower back pain. She manages the pain with Tylenol and engages in regular physical activity, including working with a industrial trainer once a week. The patient has lichen sclerosus and uses clobetasol sparingly to manage symptoms, balancing the risk of exacerbating osteoporosis. She has a history of hyperlipidemia, with cholesterol levels consistently around 219 mg/dL, and maintains a vegetarian diet for over 50 years. Despite dietary efforts, her cholesterol levels remain unchanged, and no medication has been prescribed for this condition. The patient has experienced falls, one of which resulted in knee injuries that were evaluated with X-rays showing no fractures. She attributes one fall to tripping on an uneven sidewalk while walking her dog in the dark. She also reports varicose veins primarily in the right leg and engages in acupuncture as part of her management strategy. Right leg mild edema mostly settled in the ankle area Reports piriformis syndrome causing low back pain and radiation down her left side [facility] Medical History Tarlov cyst Allergic rhinitis Chronic leukopenia Vitamin B12 deficiency anemia Raynaud's syndrome Vitamin D deficiency Osteoporosis Lumbar degenerative disc disease Patent foramen ovale with atrial septal aneurysm Premature atrial contractions Premature ventricular contractions (PVCs) (VPCs) Pure hypercholesterolemia Normal colonoscopy (~11/06/18) Surgical History History of total hysterectomy History of removal of cyst History of hand surgery Family History Father No problems noted. Mother No problems noted. Social History Housing: House Alcohol intake: former Patient Tobacco Use Status: Never used Tobacco e-Cigarette/Vaping Use: Never Used Second Hand Smoke Exposure: No service: No Current occupational status: retired Cognitive needs: No Hearing needs: Yes (Hearing aids) Vision needs: Yes (Reading glasses) Questionnaire PHQ-9 Over the last 2 weeks, how often have you been bothered by any of the following problems? 1. Little interest or pleasure in doing things: not at all 2. Feeling down, depressed, or hopeless: not at all 3. Trouble falling or staying asleep, or sleeping too much: not at all 4. Feeling tired or having little energy: not at all 5. Poor appetite or overeating: not at all 6. Feeling bad about yourself - or that you are a failure or have let yourself or your family down: not at all 7. Trouble concentrating on things, such as reading the newspaper or watching television: not at all 8. Moving or speaking so slowly that other people could have noticed. Or the opposite - being so fidgety or restless that you have been moving around a lot more than usual: not at all 9. Thoughts that you would be better off or of hurting yourself in some way: not at all Total score: 0 Depression Screening Interpretation: Negative Depression Screening Done: Yes 21063 - PHQ-9 Billing: Yes Source: Developed by Drs. Gilles Chavez, Amber Villanueva, Dorian Geronimo and colleagues, with an educational magali from [employer]. Thrive Questionnaire Date Thrive assessed: 01/03/25 I am a: Patient What is your living situation today?: I have a steady place to live Within the past 12 months, did the food you bought not last and you didn't have the money to get more?: Never true Within the past 12 months, did you worry whether your food would run out before you got money to buy more?: Never true Do you have trouble paying for medicines?: No Do you have trouble getting transportation to medical appointments?: No Do you have trouble paying your heating and electricity bill?: No Do you have trouble taking care of your child, family member or friend?: No Do you have trouble with day-to-day activities such as bathing, preparing meals, shopping, managing finances, etc.?: No Are you currently unemployed and looking for a job?: No Are you interested in more education?: No Please select the resources that you would like help with: None Currently or been in a relationship where the following occur: No concerns reported THRIVE Score: 0 AUDIT C Alcohol Use Questionnaire (AUDIT-C) 1. How often do you have a drink containing alcohol?: Never Total Score: 0 Score Reviewed/Action Taken: No TONY-7 AMB Questionnaire TONY-7 Date TONY - 7 assessed: 01/03/25 Feeling nervous, anxious, or on edge: 0 = Not at all Not being able to stop or control worryin = Not at all Worrying too much about different things: 0 = Not at all Trouble relaxin = Not at all Being so restless that it is hard to sit still: 0 = Not at all Becoming easily annoyed or irritable: 0 = Not at all Feeling afraid as if something awful might happen: 0 = Not at all Total TONY-7 score (0-4 normal; 5-9 mild; 10-14 moderate; 15-21 severe): 0 Source: Developed by Drs. Gilles Chavez, Amber Villanueva, Dorian Geronimo and colleagues, with an educational magali from [employer]. TONY-7 Assessment Billing TONY-7 Assessment Tool: TONY-7 Assessment 04448 Review of Systems Const Denies headache(s) Eyes Denies loss of vision ENT Denies vertigo, Denies dizziness, Denies headache(s) and Denies sore throat Card Denies chest pain, Denies leg edema and Denies lightheadedness Resp Denies cough, Denies hemoptysis and Denies wheezing GI Denies abdominal pain, Denies melena, Denies constipation, Denies diarrhea and Denies vomiting Denies urinary frequency, Denies dysuria and Denies urinary urgency Musc Reports back pain (low back pain), Reports arthralgias (right ribcage feels like it is resting on right hip from losing height), Denies joint swelling, Denies numbness, Reports radiating pain into limb (down left side) and Denies tingling Skin/Breast Reports other (recurrent lichens sclerosus) Neuro Denies Abnormal speech present, Denies behavioral changes, Denies vertigo, Denies dizziness, Denies headache(s), Denies loss of vision, Denies memory loss, Denies numbness and Denies tingling Psych Denies anxiety, Denies behavioral changes, Denies depression, Denies memory loss and Denies panic attacks Tenzin/Lymph Denies easy bleeding and Denies easy bruising Aller/Immun Denies wheezing Physical exam (Primary Care) Vital Signs: Last Vital Signs Temp 97.8 F 01/03/25 13:28 Pulse 73 01/03/25 13:28 Resp 14 01/03/25 13:28 BP 106/62 01/03/25 13:28 Pulse Ox 95 01/03/25 13:28 Oxygen Delivery Method Room Air 01/03/25 13:28 BMI result Body Mass Index 19.9 Tobacco/Smoking Status: Tobacco use Status Tobacco use date assessed 01/03/25 01/03/25 13:38 Patient Tobacco Use Status Never used Tobacco 01/03/25 13:38 e-Cigarette/Vaping Use Never Used 01/03/25 13:38 PHQ-9: PHQ-9 Score PHQ-9: Total score 0 01/03/25 13:47 Depression Screening Interpretation: Negative Thrive Assessment: Date of Thrive Assessment Date Thrive assessed 01/03/25 01/03/25 13:38 Currently or been in a relationship where the following occur: No concerns reported Const General: healthy appearing, no acute distress, alert and awake Nutritional Appearance: well nourished Orientation/consciousness: oriented to person, oriented to place and oriented to time HENMT Ears: TM's normal bilaterally General nose exam: Normal nasal mucous membranes and turbinates present Eyes Conjunctivae: conjunctivae normal Sclerae: sclerae normal Pupils: Equal, round and reactive pupils present Neck Neck: Yes no lymphadenopathy and Yes no JVD Thyroid: Thyroid normal Carotids: no bruits Resp Effort & Inspection: normal respiratory effort and not tachypneic Auscultation: no crackles, no rales, no rhonchi and no wheezes Cardio Rate: regular rate Rhythm: regular rhythm Heart sounds: no murmurs and normal S1 and S2 GI Palpation (GI): Soft to palpation, nontender, no hepatomegaly and no splenomegaly Auscultation: normal bowel sounds General: Yes no CVA tenderness Back/Spine/Pelvis Back: no CVA tenderness Thoracic/Lumbar Spine: paraspinal muscle tenderness on the left in the lower lumbar, thoracic spinal tenderness, lumbar spinal tenderness and straight leg raise positive left Skin General skin exam: no rashes or lesions noted and dry skin Neuro General: oriented to person, oriented to place and oriented to time Cranial nerves: Yes Equal, round and reactive pupils present Speech: No Abnormal speech present Gait exam (Neuro): Normal gait present Motor exam (neuro): no tremor noted Extrem Right upper extremity: full ROM Left upper extremity: full ROM Right lower extremity: full ROM, edema and lower leg Details: non-pitting edema (settled in the ankle-multipe varicose veins) Details: 2+ Left lower extremity: full ROM; no edema Psych Mental Status: mental status grossly normal Speech and movement: Normal speech and movement present Affect: normal affect Attitude: cooperative Thought process: Normal thought process present Results Reviewed Results Reviewed: Laboratory Tests 12/10/24 12/10/24 11:24 11:29 WBC 4.5 L RBC 4.01 L Hgb 12.9 Hct 39.3 MCV 98.0 MCH 32.2 MCHC 32.8 RDW 13.4 Plt Count 198 MPV 11.0 Sodium 141 Potassium 4.1 Chloride 106 Carbon Dioxide 28 Anion Gap 11 L BUN 24 H Creatinine 0.58 Estimated GFR > 60 Fasting Glucose 99 Calcium 9.3 Total Bilirubin 0.4 AST 35 H ALT 38 H Alkaline Phosphatase 44 Total Protein 6.7 Albumin 3.9 Triglycerides 47 Cholesterol 219 H LDL Cholesterol, Calc 143 H HDL Cholesterol 67 Vitamin B12 235 25-OH Vitamin D Total 96.6 Folate 13.9 TSH 1.41 Urine Color Yellow Urine Appearance Clear Urine pH 5.0 Ur Specific [place] 1.020 Urine Protein Negative Urine Glucose (UA) Negative Urine Ketones Trace Urine Blood Negative Urine Nitrite Negative Ur Leukocyte Esterase Trace H Urine RBC 0-2 Urine WBC 0-5 Ur Squamous Epith Cells 3-5 Hyaline Casts 0-2 Coding Level of Care Code Est Pt Level 4 (85862) Diagnoses Pure hypercholesterolemia E78.00 Age-related osteoporosis without current pathological fracture M81.0 Osteoporosis type: age-related Presence of current pathological fracture: without current pathological fracture Vitamin D deficiency E55.9 Anemia due to vitamin B12 deficiency, unspecified B12 deficiency type D51.9 Vitamin B12 deficiency anemia type: unspecified B12 deficiency Chronic bilateral low back pain with left-sided sciatica G89.29; M54.42 Chronicity: chronic Back pain laterality: bilateral Sciatica presence: with sciatica Sciatica laterality: sciatica of left side Patent foramen ovale with atrial septal aneurysm Q21.1 Raynaud's disease without gangrene I73.00 Raynaud?s-associated gangrene presence: without gangrene Allergic rhinitis, unspecified seasonality, unspecified trigger J30.9 Allergic rhinitis trigger: unspecified Allergic rhinitis seasonality: unspecified Spondylolisthesis, lumbar region M43.16 Elevated liver enzymes R74.8 Lichen sclerosus L90.0 Additional Codes TONY-7 Assessment Billing - TONY-7 Assessment Tool: TONY-7 Assessment 38357 ([id number]) PHQ-9 - 81835 - PHQ-9 Billing: Yes ([id number]) Time Spent (min) 43 Assessment & Plan Assessment & Plan (1) Pure hypercholesterolemia: Code(s): E78.00 - Pure hypercholesterolemia, unspecified Category: Medical Plan: tri 47, t-chol 219, ldl 143, hdl 67, 11/2024 Discussed lifestyle modifications including dietary changes and physical activity (2) Osteoporosis: Code(s): M81.0 - Age-related osteoporosis without current pathological fracture Category: Medical Qualifiers: Osteoporosis type: age-related Presence of current pathological fracture: without current pathological fracture Qualified Code(s): M81.0 - Age- related osteoporosis without current pathological fracture Plan: BMD in 2022 showed worsening of her osteoporosis, with her lowest T-score value of -3.5 in the total femur prevent falls, continue vitamin-D and calcium supplements will repeat BMD follow up with Endocrinology as scheduled, Dr. Paz (3) Vitamin D deficiency: Code(s): E55.9 - Vitamin D deficiency, unspecified Category: Medical Plan: Continue vitamin-D supplement OTC (4) Vitamin B12 deficiency anemia: Code(s): D51.9 - Vitamin B12 deficiency anemia, unspecified Category: Medical Qualifiers: Vitamin B12 deficiency anemia type: unspecified B12 deficiency Artie lified Code(s): D51.9 - Vitamin B12 deficiency anemia, unspecified Plan: Continue to be mildly anemic Appears to stabilized-vitamin B12 in the low normal range =235 Continue vitamin B12 supplement OTC (5) Low back pain: Code(s): M54.50 - Low back pain, unspecified Category: Medical Qualifiers: Chronicity: chronic Back pain laterality: bilateral Sciatica presence: with sciatica Sciatica laterality: sciatica of left side Qualified Code(s): G89.29 - Other chronic pain; M54.42 - Lumbago with sciatica, left side Plan: Avoid bed rest (including sitting in bed) and to simply limit painful activities; improvement usually occurs within a few weeks May use cool packs; may alternate cold and hot packs Exercises a bill (e.g., walking, swimming, cycling) as soon as possible, starting with 5-10 min and walk-in up to 20-30 minute q.day Abdominal core and back strengthening exercises may help to prevent future problems Continue Tylenol Arthritis q.8H as needed (6) Patent foramen ovale with atrial septal aneurysm: Code(s): Q21.1 - Atrial septal defect Category: Medical Plan: Echo done on 10/2017 showed the presence of an interarterial septal aneurysm with a patent foramen ovale Normal LVEF 60-65%, no wall motion abnormalities. Diastolic function was also noted to be normal for age Echo repeated in 12/2019 showed no significant changes or other abnormalities Denies cardiac symptoms. Follow up with Cardiology as scheduled (7) Raynaud's syndrome: Code(s): I73.00 - Raynaud's syndrome without gangrene Category: Medical Qualifiers: Raynaud?s-associated gangrene presence: without gangrene Qualified Code(s): I73.00 - Raynaud's syndrome without gangrene Plan: Avoid extreme temperatures, especially cold, to minimize symptoms (8) Allergic rhinitis: Code(s): J30.9 - Allergic rhinitis, unspecified Category: Medical Qualifiers: Allergic rhinitis trigger: unspecified Allergic rhinitis seasonality: unspecified Qualified Code(s): J30.9 - Allergic rhinitis, unspecified Plan: Limit exposure to allergens Air purifiers and dust filters Air conditioner in house, especially where sleeping Continue antihistamine OTC as needed (9) Spondylolisthesis, lumbar region: Code(s): M43.16 - Spondylolisthesis, lumbar region Category: Medical Plan: reinforced activity?and weight lifting restrictions Patient used to go to her chiropractor and/or professional nursing assistant PRN to help manage her back pain but states that her low back pain has been increasing / worsening lately to a point now wherein she has a hard time moving around in the late afternoon when her low back pain flares up Lumbar spine x-rays repeated back in January 2024 revealed marked rotatory scoliosis of the lumbar spine, convex left, severe multilevel degenerative disc disease and multilevel degenerative facet joint disease, grade 1 anterolisthesis of L4 on L5 and left lateral translation of L3 with respect to L4 with new bridging osteophyte formation along the right lateral aspect of the L3-L4 disc space SI joint x-rays came back normal Repeat lumbar spine MRI 06/2024 showed an interval progression of multilevel d egenerative changes as detailed level. There is worsening lumbar levoscoliosis. Mild to moderate spinal canal stenosis at L4-5 remains unchanged. There is however new mild spinal canal stenosis at L3-4. Multilevel neural foraminal narrowing, worse and severe at L5/S1 on the left where there is impingement of the left exiting L5 nerve roots. Follow up with pain management as scheduled (10) Elevated liver enzymes: Code(s): R74.8 - Abnormal levels of other serum enzymes Category: Medical Plan: Liver enzymes mildly elevated Modest weight loss greater than or equal to two percent through diet and exercise has been shown to significantly reduce liver enzymes levels Adopting a healthier diet low in saturated fats, refined sugars and alcohol helps to reduce liver fat and inflammation managing hyperlipidemia, and hypertension can improve liver enzymes The patient is on Tylenol 650 mg Q 8 PRN, explained to patient to use this sparingly (11) Lichen sclerosus: Code(s): L90.0 - Lichen sclerosus et atrophicus Category: Medical Plan: clobetasol 0.05% topical daily refilled Plan The patient will continue on Fosamax for osteoporosis management, with a bone density scan scheduled to assess current bone health. Given the side effects of indigestion and heartburn. For scoliosis-related back pain, the patient will continue using Tylenol and maintain regular physical activity, including sessions with a industrial trainer to improve strength and balance. Lichen sclerosus will be managed with clobetasol, used sparingly to minimize the risk of exacerbating osteoporosis. The patient will monitor her cholesterol levels, maintaining her vegetarian diet, and will follow up with her healthcare provider if levels remain elevated. Preventative care includes scheduling a bone density screening and maintaining regular physical activity to support bone health. Patient was informed and verbally consented to the use of an ambient scribe for clinic note documentation during this visit. Orders: Orders Complete Blood Count Auto Diff 6 Months D51.9 - Vitamin B12 deficiency anemia, unspecified, D72.819 - Decreased white blood cell count, unspecified, E55.9 - Vitamin D deficiency, unspecified, E78.00 - Pure hypercholesterolemia, unspecified, I49.1 - Atrial premature depolarization, I49.3 - Ventricular premature depolarization, I73.00 - Raynaud's syndrome without gangrene, M48.061 - Spinal stenosis, lumbar region without neurogenic claudication, M54.50 - Low back pain, unspecified, Q21.1 - Atrial septal defect TSH reflex Free T4 6 Months D51.9 - Vitamin B12 deficiency anemia, unspecified, D72.819 - Decreased white blood cell count, unspecified, E55.9 - Vitamin D deficiency, unspecified, E78.00 - Pure hypercholesterolemia, unspecified, I49.1 - Atrial premature depolarization, I49.3 - Ventricular premature depolarization, I73.00 - Raynaud's syndrome without gangrene, M48.061 - Spinal stenosis, lumbar region without neurogenic claudication, M54.50 - Low back pain, unspecified, Q21.1 - Atrial septal defect UA CC w/rflx Micro + Cult 6 Months D51.9 - Vitamin B12 deficiency anemia, unspecified, D72.819 - Decreased white blood cell count, unspecified, E55.9 - Vitamin D deficiency, unspecified, E78.00 - Pure hypercholesterolemia, unspecified, I49.1 - Atrial premature depolarization, I49.3 - Ventricular premature depolarization, I73.00 - Raynaud's syndrome without gangrene, M48.061 - Spinal stenosis, lumbar region without neurogenic claudication, M54.50 - Low b ack pain, unspecified, Q21.1 - Atrial septal defect Vitamin D 25-OH Total 6 Months D51.9 - Vitamin B12 deficiency anemia, unspecified, D72.819 - Decreased white blood cell count, unspecified, E55.9 - Vitamin D deficiency, unspecified, E78.00 - Pure hypercholesterolemia, unspecified, I49.1 - Atrial premature depolarization, I49.3 - Ventricular premature depolarization, I73.00 - Raynaud's syndrome without gangrene, M48.061 - Spinal stenosis, lumbar region without neurogenic claudication, M54.50 - Low back pain, unspecified, Q21.1 - Atrial septal defect Comprehensive [place]. Panel Fast 6 Months D51.9 - Vitamin B12 deficiency anemia, unspecified, D72.819 - Decreased white blood cell count, unspecified, E55.9 - Vitamin D deficiency, unspecified, E78.00 - Pure hypercholesterolemia, unspecified, I49.1 - Atrial premature depolarization, I49.3 - Ventricular premature depolarization, I73.00 - Raynaud's syndrome without gangrene, M48.061 - Spinal stenosis, lumbar region without neurogenic claudication, M54.50 - Low back pain, unspecified, Q21.1 - Atrial septal defect Lipid Panel 6 Months D51.9 - Vitamin B12 deficiency anemia, unspecified, D72.819 - Decreased white blood cell count, unspecified, E55.9 - Vitamin D deficiency, unspecified, E78.00 - Pure hypercholesterolemia, unspecified, I49.1 - Atrial premature depolarization, I49.3 - Ventricular premature depolarization, I73.00 - Raynaud's syndrome without gangrene, M48.061 - Spinal stenosis, lumbar region without neurogenic claudication, M54.50 - Low back pain, unspecified, Q21.1 - Atrial septal defect XR DEXA axial skeleton Today M81.0 - Age-related osteoporosis without current pathological fracture Medications: New clobetasol 0.05% 1 appl topical DAILY 60 grams 2RF
== END 2025-01-03 14:07 | disposition home or self-care (01) ==
LOC: HO.HMCH 13:23
PROVIDERS: PCP Internal Medicine
DX: E78.00 Pure hypercholesterolemia, unspecified (principal); M81.0 Age-related osteoporosis without current pathological fracture; E55.9 Vitamin D deficiency, unspecified; D51.9 Vitamin B12 deficiency anemia, unspecified; G89.29 Other chronic pain; M54.42 Lumbago with sciatica, left side; Q21.10 Atrial septal defect, unspecified; I73.00 Raynaud's syndrome without gangrene; J30.9 Allergic rhinitis, unspecified; M43.16 Spondylolisthesis, lumbar region; R74.8 Abnormal levels of other serum enzymes; L90.0 Lichen sclerosus et atrophicus

== ENCOUNTER → 2025-01-03 13:22 | Outpatient (BNVA) | payer MEDICARE, SELFPAY | PROVIDERS: PCP Internal Medicine | DX: M81.0 Age-related osteoporosis without current pathological fracture (principal); E78.5 Hyperlipidemia, unspecified; E78.00 Pure hypercholesterolemia, unspecified; E55.9 Vitamin D deficiency, unspecified; D51.9 Vitamin B12 deficiency anemia, unspecified; G89.29 Other chronic pain; M54.42 Lumbago with sciatica, left side; Q21.12 Patent foramen ovale; I73.00 Raynaud's syndrome without gangrene; J30.9 Allergic rhinitis, unspecified; M43.16 Spondylolisthesis, lumbar region; R74.8 Abnormal levels of other serum enzymes; Z91.81 History of falling; Z79.899 Other long term (current) drug therapy | CPT/HCPCS: 96127; 99212 ==

== ENCOUNTER 2025-01-23 08:25 | Outpatient (REF) | payer SELFPAY ==
--- OUTSIDE RECORDS SUMMARY | 2025-01-23 08:37 | XMS_ITS | Patient Health Record ---
Author Organization [facility] Address [address] [place] [address] Care Team Providers Care Relay Associate Name Role Phone Stanton GROSSMAN, Elie Primary Care Provider Obey Terry Jr Unavailable Reason For Referral No Information Plan Of Treatment No Information Insurance Providers Payer Name Payer Address Payer Phone Subscriber Number Group Number Insured Name Patient Relationship to Insured Coverage Start Date Coverage End Date [facility] [address] [place] [phone] [id number] TOPHER MARTÍNEZ Self - patient is the insured
--- NOTE | 2025-01-23 09:08 | MHC.AU.HA3 ---
Hearing Instrument Follow-Up- Binaural Date of Visit: 01/23/25 Right Ear: Make, Model, Color, Serial Number: ReSound One 7 [id number] [id number] SN: [id number] Color: Gold Engraving Supervisor Repair Warranty: 02/21/2025 Engraving Supervisor Loss and Damage Warranty: 02/21/2025 [facility] Service Plan: 02/21/2025 Battery Size: Rechargeable Bag Worker/Slim Tube: 1 MP Earmold/Dome/CShell/SlimTip:ReSound Slim Tip soft earmold with canal lock SN: [id number] Myra: 09/26/2022 Type of Wax Guard: ReSound Dispensed By: [facility] Date of Fittin02/24/2022 Left Ear: Make, Model, Color, Serial Number: ReSound One 7 [id number] [id number] SN: [id number] Color: Gold Engraving Supervisor Repair Warranty: 02/21/2025 Engraving Supervisor Loss and Damage Warranty: 02/21/2025 [facility] Service Plan: 02/21/2025 Battery Size: Rechargeable Bag Worker/Slim Tube: 1 MP Earmold/Dome/CShell/SlimTip: ReSound Slim Tip soft earmold with canal lock SN: [id number] Myra: 09/26/2022 Type of Wax Guard: ReSound Dispensed By: [facility] Date of Fittin02/24/2022 Follow-Up Summary: Wanted HAs/packer sausage and wiener sent to internal audit senior manager for clean and check and to replace rechargeable battery prior to warranty ending. Programmed Marqui with [employer] EMs. Sent HAs, packer sausage and wiener, cord, and wall plug to [facility]. Will need appointment for pick up truck driver to transfer EMs from loaners back to personal HAs. Recommendations: Patient will be contacted when materials have arrived. Recommendations (Other): Needs appointment for pick up truck driver. Diagnosis Code(s): Primary Diagnosis: H90.3 Bilateral Sensorineural Hearing Loss Signature: Provider: Rowena Chery, [facility]
== END 2025-01-23 08:26 | disposition home or self-care (01) ==
LOC: HO.HAP 08:25
PROVIDERS: Visit Provider Internal Medicine
DX: Z13.89 Encounter for screening for other disorder (principal)

== ENCOUNTER 2025-02-13 10:17 | Outpatient (REF) | payer SELFPAY ==
--- OUTSIDE RECORDS SUMMARY | 2025-02-07 07:58 | XMS_ITS | Encounter Summary ---
Author Organization [facility] Address [address] [place] [address] Phone Care Team Providers Care Hoisting Machine Operator Name Role Phone Elie Eid MD Primary Care Provider [phone] Encounter Details Date Type Department Care Team (Latest Contact Info) Description 02/07/2025 7:58 AM EDT - 02/07/2025 11:59 PM EDT Hospital Encounter [facility] [address] [place] [address] Alphonso Paz DO [address] [place] [address] [email or web address] Discharge Disposition: Home or Self Care Social History Tobacco Use Types Packs/Day Years Used Date Smoking Tobacco: Never Smokeless Tobacco: Never Alcohol Use Standard Drinks/Week Comments Never 0 (1 standard drink = 0.6 oz pur e alcohol) Education Answer Date Recorded Are you interested in more education? Not on connie e 01/25/2023 Are you concerned about learning? Not on file 01/25/2023 No 01/25/2023 No 01/25/2023 Digital Access Answer Date Recorded No 01/25/2023 No 01/25/2023 Reliable internet access at home? Not on file 01/25/2023 Device with a working camera? Not on file Comments Unknown Sex and Gender Information Value Date Recorded Sex Assigned at Not on file Legal Sex Female 8:48 AM EDT Gender Identity Not on file Sexual Orientation Not on file documented as of this encounter Medications at Time of Discharge alendronate (FOSAMAX) 70 MG tablet Take 1 tablet by mouth every 7 days. 04/09/2023 aspirin 81 MG EC tablet Take 81 mg by mouth daily. CALCIUM-MAGNESIU M-ZINC ORAL Take 1 tablet by mouth daily. 333 mg calcium carbonate, 125 mg magnesium oxide, and 5 mg zinc sulfate monohydrate cholecalciferol, vitamin D3, (VITAMIN D3) 25 mcg (1,000 unit) capsule Take 25 mcg by mouth daily. 03/30/2022 estradioL (ESTRACE) 0.01 % (0.1 mg/gram) vaginal cream Place 1 g vaginally as needed. 12/02/2021 metoprolol succinate (TOPROL-XL) 25 MG 24 hr tablet Take 1 tablet by mouth every morning. 03/21/2023 documented as of this encounter Plan of Treatment Upcoming Encounters Date Type Department Care Team (Late st Contact Info) Description 02/19/2025 3:20 PM EDT Office Visit [facility] [address] [place] [id number] Alphonso Paz DO [address] [place] [phone] [email or web address] documented as of this encounter Procedures Procedure Name Priority Date/Time Associated Diagnosis Comments P1NP (Procollagen I NT Polypeptide) Routine 02/07/2025 8:06 AM EDT Age-related osteoporosis without current pathological fracture COLLAGEN TYPE 1B-TELOPEPTIDE, BLOOD Routine 02/07/2025 8:06 AM EDT Age-related osteoporosis without current pathological fracture COMPREHENSIVE METABOLIC PANEL Routine 02/07/2025 8:06 AM EDT Age-related osteoporosis without current pathological fracture PHOSPHORUS Routine 02/07/2025 8:06 AM EDT documented in this encounter Results * Phosphorus (02/07/2025 8:06 AM EDT) PHOSPHORUS 3.0 2.7 - 4.5 mg/dL [facility] 02/07/2025 8:06 AM EDT 02/07/2025 8:12 AM EDT Alphonso Paz LAB BLOOD ORDERABLES Final Resul t Performing Organization Address City/[facility]/ZIP Co de Phone Number [address] [address] * (ABNORMAL) Comprehensive metabolic panel (02/07/2025 8:06 AM EDT) SODIUM 142 133 - 146 mmol/L [facility] POTASSIUM 4.1 3.3 - 5.1 mmol/L [facility] CHLORIDE 105 96 - 108 mmol/L [facility] CO2 27 21 - 35 mmol/L [facility] BUN 27(H) 6 - 19 mg/dL [facility] CREATININE 0.60 0.5 - 1.5 mg/dL [facility] GLUCOSE 98 70 - 99 mg/dL [facility] ALBUMIN 3.5(L) 3.9 - 4.8 g/dL [facility] TOTAL PROTEIN 6.3(L) 6.5 - 8.0 g/dL [facility] CALCIUM 9.0 8.4 - 10.3 mg/dL [facility] ALKALINE PHOSPHATASE 42 39 - 117 U/L [facility] TOTAL BILIRUBIN 0.3 0.0 - 1.2 mg/dL [facility] AST 23 0 - 37 U/L [facility] ALT 18 0 - 40 U/L [facility] GLOBULIN 2.8 1 - 4.8 g/dL [facility] EGFR 92 >59 mL/min/1.7 3m2 [facility] Comment:Estimated glomerular filtration rate calculated using the CKD-EPI refit equation. ANION GAP 14 10 - 20 mmol/L [facility] Blood 02/07/2025 8:06 AM EDT 02/07/2025 8:12 AM EDT Alphonso Paz DO LAB BLOOD ORDERABLES Final Resul t Performing Organization Address City/[facility]/ZIP Co de Phone Number [address] [address] * (ABNORMAL) Collagen type 1b-telopeptide, blood (02/07/2025 8:06 AM EDT) Collagen CTx 113(L) pg/mL [facility] MED/PATH SUPERIOR Comment: (NOTE) REFERENCE VALUE 148-967 (18-29 y) 150-635 (30-39 y) 131-670 (40-49 y) [phone] (50-59 y) 171-970 (60-69 y) 152-858 (>70 y) 136-689 (Premenopausal) 177-1015 (Postmenopausal) Flagging is based on the age-specific reference interval and not menopausal status. Blood 02/07/2025 8:06 AM EDT 02/07/2025 8:11 AM EDT [facility] BLOOD ORDERABLES Final Resul t Performing Organization Address [facility]/RUST de Phone Number [facility] MED/PATH [address] [place] [address] * P1NP (PROCOLLAGEN I NT POLYPEPTIDE) (02/07/2025 8:06 AM EDT) Pathologist [facility] PROCOLL I INTACT N 14 mcg/L [facility] SUPERIOR Comment: (NOTE) REFERENCE VALUE Premenopausal: 19-83 Postmenopausal: 16-96 Blood 02/07/2025 8:06 AM EDT 02/07/2025 8:11 AM EDT Alphonso Gambinoasio [employer] BLOOD ORDERABLES Final Resul t Performing Organization Address [facility] Co de Phone Number [facility] MED/PATH [address] [place] [address] documented in this encounter Visit Diagnoses Diagnosis Age-related osteoporosis without current pathological fracture documented in this encounter Care Teams Hoisting Machine Operator Relationship Specialty Start Date End Date Elie Eid MD [address] [place] [address] [place] [address] PCP - General Internal Medicine 05/03/23 documented as of this encounter Additional Source Comments The information contained in this document represents components of the legal health record. It is not the complete legal health record.[facility]
--- NOTE | ~2025-02-13 | MM_ITS ---
EXAMINATION: DXA BONE DENSITY AXIAL HISTORY: M81.0 - Age-related osteoporosis without current pathological fracture TECHNIQUE: Aluwave Dual energy absorptiometry (DEXA) of the lumbar spine, total left hip, and femoral neck was performed. COMPARISON: Comparison is made with the prior examination dated 12/28/2022. FINDINGS: The bone mineral density of the lumbar spine is 1.106 g/cm2, corresponding to a T-score of -0.6, and a Z-score of 1.8. This is indicative of normal bone mineral density. This represents a BMD change of 24.8% compared to the prior exam. This is statistically significant. The bone mineral density of the left total hip is 0.592 g/cm2, corresponding to a T-score of -3.3, and a Z-score of -1.0. This is indicative of osteoporosis. This represents a BMD change of 5.2% compared to the prior exam. This is not statistically significant. The bone mineral density of the left femoral neck is 0.678 g/cm2, corresponding to a T-score of -2.6, and a Z-score of -0.2. This is indicative of osteoporosis. This represents a BMD change of 3.5% compared to the prior exam. MM/XR DEXA axial skeleton IMPRESSION: Based on bone mineral density, and according to World Health Organization (WHO) criteria, the diagnosis is consistent with osteoporosis. Statistically, 68% of repeat scans fall within 1 SD (+/- 0.010 g/cm2 for AP spine L1-L4) and 1 SD (+/- 0.012 g/cm2 for femur total) FRAX is a trademark of the [employer]'s [place] for Metabolic Bone Disease, a World Health Organization (WHO) Collaborating Center. Electronically signed by: Gilles Maurice MD 02/13/2025 11:11 AM EDT
--- OUTSIDE RECORDS SUMMARY | 2025-02-13 11:01 | XMS_ITS | Patient Health Record ---
Author Organization [facility] Address [address] [place] [address] Care Team Providers Care Top Dyeing Machine Tender Name Role Phone Stanton GROSSMAN, Elie Primary Care Provider Obey Terry Jr Unavailable [phone] Reason For Referral No Information Plan Of Treatment No Information Insurance Providers Payer Name Payer Address Payer Phone Subscriber Number Group Number Insured Name Patient Relationship to Insured Coverage Start Date Coverage End Date [facility] [address] [place] [address] [id number] TOPHER MARTÍNEZ Self - patient is the insured
== END 2025-02-13 10:18 | disposition home or self-care (01) ==
LOC: HO.MAMMO 10:17
PROVIDERS: PCP Internal Medicine
DX: M81.0 Age-related osteoporosis without current pathological fracture (principal)
CPT/HCPCS: 77080

== ENCOUNTER → 2025-02-13 10:30 | Outpatient (BNV) | payer MEDICARE, SELFPAY | PROVIDERS: PCP Internal Medicine; Visit Provider Radiology Diagnostic Radiology | DX: E28.39 Other primary ovarian failure (principal) | CPT/HCPCS: 77080 ==

== ENCOUNTER 2025-02-21 09:18 | Outpatient (REF) | payer SELFPAY ==
--- OUTSIDE RECORDS SUMMARY | 2025-02-21 09:25 | XMS_ITS | Patient Health Record ---
Author Organization [facility] Address [address] [place] [address] Care Team Providers Care Castings Drafter Name Role Phone Stanton GROSSMAN, Elie Primary Care Provider Obey Terry Jr Unavailable [phone] Reason For Referral No Information Plan Of Treatment No Information Insurance Providers Payer Name Payer Address Payer Phone Subscriber Number Group Number Insured Name Patient Relationship to Insured Coverage Start Date Coverage End Date [facility] [address] [place] [address] [id number] TOPHER MARTÍNEZ Self - patient is the insured
--- OUTSIDE RECORDS SUMMARY | 2025-02-21 09:25 | XMS_ITS | Clinical Summary ---
Author Organization [facility] Address [address] [place] [address] Phone Care Team Providers Care Representative Government Relations Name Role Phone Elie Eid MD Primary Care Provider [phone] Allergies No known active allergies Medications metoprolol succinate (TOPROL-XL) 25 MG 24 hr tablet Take 1 tablet by mouth every morning. 03/21/20 23 Active estradioL (ESTRACE) 0.01 % (0.1 mg/gram) vaginal cream Place 1 g vaginally as needed. 12/03/19 22 Active cholecalciferol, vitamin D3, (VITAMIN D3) 25 mcg (1,000 unit) capsule Take 25 mcg by mouth daily. 03/30/20 22 Active aspirin 81 MG EC tablet Take 81 mg by mouth daily. Active CALCIUM-MAGNESIU M-ZINC ORAL Take 1 tablet by mouth daily. 333 mg calcium carbonate, 125 mg magnesium oxide, and 5 mg zinc sulfate monohydrate Active clobetasol (TEMOVATE) 0.05 % ointment Apply topically daily. 01/04/20 25 Active alendronate (FOSAMAX) 70 MG tabletIndication s:Age-related osteoporosis without current pathological fracture Take 1 tablet (70 mg total) by mouth every 7 days. 12 tablet 4 02/20/20 25 Active alendronate (FOSAMAX) 70 MG tablet Take 1 tablet by mouth every 7 days. 04/09/20 23 025 Discontin ued(Reord er) Active Problems Problem Noted Date Diagnosed Date Age-related osteoporosis wit hout current pathological fracture 05/03/2023 Assessment & Plan (02/19/2025 3:48 PM EDT): She continues calcium vitamin D supplement is doing weightbearing exercises. Had significant improvement in an bone mineral density with the use of alendronate after 2 years. However her T-score is still quite low for the total hip and her risk of fracture is considered very high at 6.1%. She did inquire if there was anything that will work better and I told her that romosozumab/Evenity which is 2 monthly injections for period of 12 months will work better than alendronate and she can consider this. The contraindications stroke or myocardial infarction within 6 months. So she would like to think about it. If she prefers to use romosozumab I can prescribe it we would likely have to get prior to rotation from the insurance. For now she should continue alendronate. I will give her a follow-up appointment for 1 year. I will request the same blood test that I requested this year and she should do it fasting 2 weeks prior to the visit. Assessment & Plan (08/07/2024 1:25 PM EST): She is now taking calcium 600 mg twice a day vitamin D at 1000 units daily. She is doing weightbearing exercises and she continues on alendronate has been using the medication for approximately 18 months now. I did request a DEXA scan previously this was supposed to be done at [facility] but her insurance would not do it before the 2 years time. She is due on 12/28/2024. She states that her need to put in a new DXA scan request because her primary care physician will requested. She is getting alendronate through her primary care physician. I did request lab work to be done fasting 2 weeks prior to the follow-up visit. Assessment & Plan (08/03/2023 2:34 PM EST): The patient has multiple risk factors for osteoporosis as indicated above. An additional risk is that she is not getting adequate calcium intake. She is getting approximately 800 mg total per day she needs minimum of 1200 maximum of 1600 mg. She does have calcium supplements that are 333 mg/tab. I suggested that she can take 1 tablet 3 times a day because she does not really get a lot of dietary calcium. Even if she were to take the full 1000 mg/day she does not reach 1600 mg/day. I also informed her that the alendronate will not work properly if she is not getting adequate calcium intake. Her vitamin D level of 1000 units is appropriate vitamin D levels were in the reference range. She is due for repeat DXA scan on 12/28/2024. The patient would like to see if the bisphosphonates is working to improve her bone mineral density so she could potentially get a repeat ultrasound by a 12/29/2023. I have been told that it is possible to get a bone density within a year if on therapy to see if the medication is effective. I have requested the study and asked the patient to contact the radiology department and see if she can get this scheduled. Assessment & Plan (05/03/2023 1:57 PM EDT): This is a patient possibly was diagnosed with osteoporosis in 2015 but only received therapy and 2022. Her risk factors for osteoporosis include age, surgical menopause, prolonged exposure to secondhand tobacco, vitamin D deficiency, use of corticosteroids for 1 year. She has not had any fractures but has had close to 4 inch decrease in height if her recollection is correct regarding her tallest height. However the patient also has scoliosis and this may also result in decreased height. Currently she is taking calcium supplements once a day with food. She is taking vitamin D at 1000 units daily. She gets close to 500 mg of calcium in her diet and if she is getting another 1000 mg of calcium supplements that will be 1500 mg. She needs anywhere from 1200 to 1600 mg of calcium a day. The issue is that at 1000 mg of calcium cannot be absorbed in 1 sitting. Physiologically 1 can only absorb up to 800 mg of calcium in 1 sitting. She has been using alendronate for the last 16 weeks and tolerating without any adverse effects. I will request biochemical work-up for secondary causes of osteoporosis. She will follow in 3 months. Encounters Date Type Department Care Team Description 02/19/2025 3:20 PM EDT Office Visit [facility] [address] [place] [address] Alphonso Paz, Age-related osteoporosis without current pathological fracture (Primary Dx) 02/07/2025 7:58 AM EDT - 02/07/2025 11:59 PM EDT Hospital Encounter [facility] [address] [place] [address] Alphonso Paz DO Discharge Disposition: Home or Self Care from Last 3 Months Family History Medical History Relation Comments Stroke Father Emphysema Mother Relation Status Comments Father Mother Social History Tobacco Use Types Packs/Day Years [...] on file Sexual Orientation Not on file Last Filed Vital Signs Vital Sign Reading Time Taken Comments Blood Pressure 108/62 02/19/2025 3:14 PM EDT Pulse 67 02/19/2025 3:14 PM EDT Temperature 36.4 C (97.6 F) 08/03/2023 2:08 PM EST Respiratory Rate - - Oxygen Saturation 99% 02/19/2025 3:14 PM EDT Inhaled Oxygen Concentration - - Weight 48 kg (105 lb 12.8 oz) 02/19/2025 3:14 PM EDT Height 150.9 cm (4' 11.41 ) 02/19/2025 3:14 PM E DT Body Mass Index 21.08 02/19/2025 3:14 PM EDT Plan of Treatment Upcoming Encounters Date Type Department Care Team (Late st Contact Info) Description 02/19/2026 1:00 PM EDT Office Visit [facility] [address] [place] [address] Alphonso Paz DO [address] [place] [address] [email or web address] Health Maintenance Due Date Last Done Comments Adult Td,Tdap Booster 1945 LIPID PANEL 1947 DEPRESSION SCREENING 1959 HEPATITIS C SCREENING 1965 PNEUMOCOCCAL VACCINES (50+ y ears) (1 of 1 - PCV) 1997 ZOSTER VACCINES (1 of 2) 1997 OSTEOPOROSIS SCREENING INITI AL (ONE-TIME) 2012 RSV VACCINE (1 - 1-dose 75+ series) 2022 COVID-19 VACCINE (1 - 2023-2 5 season) 2024 SMOKING STATUS SCREENING (On ce After 26 Yrs) Completed 08/07/2024 HEPATITIS A VACCINES Aged Out No long er eligible based on patient's age to complete this topic HIB VACCINES Aged Out No longer eligi ble based on patient's age to complete this topic MENINGOCOCCAL VACCINES (ACWY) Aged Out No longer eligible based on patient's age to complete this topic MENINGOCOCCAL VACCINES (B) Aged Out N o longer eligible based on patient's age to complete this topic Medical Devices Not on file Procedures Procedure Name Priority Date/Time Associated Diagnosis Comments PHOSPHORUS Routine 02/07/2025 8:06 AM EDT COMPREHENSIVE METABOLIC PANEL Routine 02/07/2025 8:06 AM EDT Age-related osteoporosis without current pathological fracture COLLAGEN TYPE 1B-TELOPEPTIDE, BLOOD Routine 02/07/2025 8:06 AM EDT Age-related osteoporosis without current pathological fracture P1NP (Procollagen I NT Polypeptide) Routine 02/07/2025 8:06 AM EDT Age-related osteoporosis without current pathological fracture from Last 3 Months Results * P1NP (PROCOLLAGEN I NT POLYPEPTIDE) (02/07/2025 8:06 AM EDT) PROCOLL I INTACT N 14 mcg/L [facility] SUPERIOR Comment: (NOTE) REFERENCE VALUE Premenopausal: 19-83 Postmenopausal: 16-96 Blood 02/07/2025 8:06 AM EDT 02/07/2025 8:11 AM EDT [facility]LES Final Resul t Performing Organization Address [facility] de Phone Number [facility] MED/PATH [address] [address] * (ABNORMAL) Collagen type 1b-telopeptide, blood (02/07/2025 8:06 AM EDT) Pathologist [facility] Collagen CTx 113(L) pg/mL [facility]/PATH SUPERIOR Comment: (NOTE) REFERENCE VALUE 148-967 (18-29 y) 150-635 (30-39 y) 131-670 (40-49 y) 183-1060 (50-59 y) 171-970 (60-69 y) 152-858 (>70 y) 136-689 (Premenopausal) 177-1015 (Postmenopausal) Flagging is based on the age-specific reference interval and not menopausal status. Blood 02/07/2025 8:06 AM EDT 02/07/2025 8:11 AM EDT us Alphonso Paz LAB BLOOD ORDERABLES Final Resul t Performing Organization Address [facility] de Phone Number [facility] MED/PATH [address] [address] * (ABNORMAL) Comprehensive metabolic panel (02/07/2025 8:06 AM EDT) Pathologist [facility] SODIUM 142 133 - 146 mmol/L [facility] POTASSIUM 4.1 3.3 - 5.1 mmol/L [facility] CHLORIDE 105 96 - 108 mmol/L [facility] CO2 27 21 - 35 mmol/L [facility] BUN 27(H) 6 - 19 mg/dL [facility] CREATININE 0.60 0.5 - 1.5 mg/dL [facility] GLUCOSE 98 70 - 99 mg/dL [facility] ALBUMIN 3.5(L) 3.9 - 4.8 g/dL [facility] TOTAL PROTEIN 6.3(L) 6.5 - 8.0 g/dL [facility] CALCIUM 9.0 8.4 - 10.3 mg/dL [facility] ALKALINE PHOSPHATASE 42 39 - 117 U/L [facility] TOTAL BILIRUBIN 0.3 0.0 - 1.2 mg/dL [facility] AST 23 0 - 37 U/L [facility] ALT 18 0 - 40 U/L [facility] GLOBULIN 2.8 1 - 4.8 g/dL [facility] EGFR 92 >59 mL/min/1.7 3m2 [facility] Comment:Estimated glomerular filtration rate calculated using the CKD-EPI refit equation. ANION GAP 14 10 - 20 mmol/L [facility] Blood 02/07/2025 8:06 AM EDT 02/07/2025 8:12 AM EDT [facility] LAB BLOOD ORDERABLES Final Resul t Performing Organization Address City/[facility] Co de Phone Number [address] [address] * Phosphorus (02/07/2025 8:06 AM EDT) PHOSPHORUS 3.0 2.7 - 4.5 mg/dL [facility] 02/07/2025 8:06 AM EDT 02/07/2025 8:12 AM EDT Alphonso [facility] LAB BLOOD ORDERABLES Final Resul t [address] [address] from Last 3 Months Insurance [employer] RE[employer] Care Teams Representative Government Relations Relationship Specialty Start Date End Date Elie Eid MD [address] [place] [address] [place] [address] PCP - General Internal Medicine 05/03/23 Additional Source Comments The information contained in this document represents components of the legal health record. It is not the complete legal health record.[facility]
== END 2025-02-21 09:19 | disposition home or self-care (01) ==
LOC: HO.HAP 09:18
PROVIDERS: Visit Provider Internal Medicine
DX: Z13.89 Encounter for screening for other disorder (principal)

== ENCOUNTER 2025-03-10 13:54 | Outpatient (REF) | payer MEDICARE, SELFPAY ==
--- NOTE | 2025-03-10 14:37 | MHC.AU.HA3 ---
Hearing Instrument Follow-Up- Binaural Date of Visit: 03/10/25 Right Ear: Ned, Model, Color, Serial Number: ReSound [id number] RIE SN: [id number] Color: Gold Lean Engineer Repair Warranty: 02/21/2025 Lean Engineer Loss and Damage Warranty: 02/21/2025 [facility] Service Plan: 02/21/2025 Battery Size: Rechargeable Heel Pricker/Slim Tube: 1 MP Earmold/Dome/CShell/SlimTip:ReSound Slim Tip soft earmold with canal lock SN: [id number] Myra: 09/26/2022 Type of Wax Guard: ReSound Dispensed By: [facility] Date of Fittin02/24/2022 Left Ear: Ned, Model, Color, Serial Number: ReSound [id number] RIE SN: [id number] Color: Gold Lean Engineer Repair Warranty: 02/21/2025 Lean Engineer Loss and Damage Warranty: 02/21/2025 [facility] Service Plan: 02/21/2025 Battery Size: Rechargeable Heel Pricker/Slim Tube: 1 MP Earmold/Dome/CShell/SlimTip: ReSound Slim Tip soft earmold with canal lock SN: [id number] Myra: 09/26/2022 Type of Wax Guard: ReSound Dispensed By: [facility] Date of Fittin02/24/2022 Follow-Up Summary: Bonny returned the loaner hearing aids. Placed her earmolds back on her hearing aids that have returned from drag down for end of warranty maintenance. Returned Bonny's editor farm journal with cable and plug to her as well. Reconnected Bonny's hearing aids to her phone. Bonny notes she is happy to have her hearing aids back. Recommendations: Recommendations: Hearing instrument follow-up or maintenance as needed. Diagnosis Code(s): Primary Diagnosis: H90.3 Bilateral Sensorineural Hearing Loss Signature: Provider: Rowena London, CCC-A
--- OUTSIDE RECORDS SUMMARY | 2025-03-10 15:14 | XMS_ITS | Clinical Summary ---
Author Organization [facility] Address [address] [place] [address] Phone Care Team Providers Care Boiler/Chiller Technician Name Role Phone Elie Eid MD Primary Care Provider [phone] Allergies No known active allergies Medications metoprolol [...] this was supposed to be done at [facility] but her insurance would not do it [...] PM EDT Office Visit [facility] [address] [place] [address] Alphonso Paz, Age-related osteoporosis without current pathological fracture (Primary Dx) 02/07/2025 7:58 AM EDT - 02/07/2025 11:59 PM EDT Hospital Encounter [facility] [address] [place] [address] Alphonso Paz DO Discharge Disposition: Home or [...] PM EDT Office Visit [facility] [address] [place] [address] Alphonso Paz DO [address] [place] [address] Health Maintenance Due Date Last Done Comments Adult Td,Tdap Booster 1947 LIPID PANEL 1947 DEPRESSION SCREENING 1959 HEPATITIS C SCREENING 1965 PNEUMOCOCCAL VACCINES (50+ y ears) (1 of 1 - PCV) 1997 ZOSTER VACCINES (1 of 2) 1997 OSTEOPOROSIS SCREENING INITI AL (ONE-TIME) 2012 RSV VACCINE (1 - 1-dose 75+ series) 2022 COVID-19 VACCINE (1 - 2023-2 5 season) 2024 INFLUENZA VACCINE (#1) 2025 SMOKING STATUS SCREENING (On ce After 26 [...] EDT) PROCOLL I INTACT N 14 mcg/L [facility]PATH SUPERIOR Comment: (NOTE) REFERENCE VALUE Premenopausal: 19-83 Postmenopausal: 16-96 Blood 02/07/2025 8:06 AM EDT 02/07/2025 8:11 AM EDT Alphonso [facility] BLOOD ORDERABLES Final Resul t Performing Organization Address City/[facility] de Phone Number [facility] MED/PATH [address] [place] [address] * (ABNORMAL) Collagen type 1b-telopeptide, blood (02/07/2025 8:06 AM EDT) Pathologist [facility] Collagen CTx 113(L) pg/mL [facility]/PATH SUPERIOR Comment: (NOTE) REFERENCE VALUE 148-967 (18-29 y) 150-635 (30-39 y) 131-670 (40-49 y) 183-1060 (50-59 y) 171-970 (60-69 y) 152-858 (>70 y) 136-689 (Premenopausal) 177-1015 (Postmenopausal) Flagging is based on the age-specific reference interval and not menopausal status. Blood 02/07/2025 8:06 AM EDT 02/07/2025 8:11 AM EDT [facility] Final Resul t Performing Organization Address [facility] Co de Phone Number [facility] MED/PATH SU[address] [place] [address] * (ABNORMAL) Comprehensive metabolic panel (02/07/2025 8:06 AM EDT) Pathologist [facility] SODIUM 142 133 - 146 mmol/L [facility] POTASSIUM 4.1 3.3 - 5.1 mmol/L [facility] CHLORIDE 105 96 - 108 mmol/L [facility] CO2 27 21 - 35 mmol/L [facility] BUN 27(H) 6 - 19 mg/dL [facility] CREATININE 0.60 0.5 - 1.5 mg/dL [facility] GLUCOSE 98 70 - 99 mg/dL [facility] ALBUMIN 3.5(L) 3.9 - 4.8 g/dL [facility] TOTAL PROTEIN 6.3(L) 6.5 - 8.0 g/dL [facility] CALCIUM 9.0 8.4 - 10.3 mg/dL [facility] ALKALINE PHOSPHATASE 42 39 - 117 U/L [facility] TOTAL BILIRUBIN 0.3 0.0 - 1.2 mg/dL [facility] AST 23 0 - 37 U/L [facility] ALT 18 0 - 40 U/L [facility] GLOBULIN 2.8 1 - 4.8 g/dL [facility] EGFR 92 >59 mL/min/1.7 3m2 [facility] Comment:Estimated glomerular filtration rate calculated using the CKD-EPI refit equation. ANION GAP 14 10 - 20 mmol/L [facility] Blood 02/07/2025 8:06 AM EDT 02/07/2025 8:12 AM EDT us [facility]OD ORDER[facility]LES Final Resul t Performing Organization Address City/[facility]/ZIP Co de Phone Number [address] [address] * Phosphorus (02/07/2025 8:06 AM EDT) PHOSPHORUS 3.0 2.7 - 4.5 mg/dL [facility] 02/07/2025 8:06 AM EDT 02/07/2025 8:12 AM EDT [facility] BLOOD ORDERABLES Final Resul t Performing Organization Address City/[facility]/ZIP Co de Phone Number [address] [address] from Last 3 Months Insurance [employer] [place] [employer] H[employer]PLAC[employer] H[employer] Care Teams Boiler/Chiller Technician Relationship Specialty Start Date End Date Elie Eid MD [address] [place] [address] [place] [address] PCP - General Internal Medicine 05/03/23 Additional Source Comments The information contained in this document represents components of the legal health record. It is not the complete legal health record.[facility]
--- OUTSIDE RECORDS SUMMARY | 2025-03-10 15:14 | XMS_ITS | Patient Health Record ---
Author Organization [facility] Address [address] [place] [address] Care Team Providers Care Action Finisher Name Role Phone Stanton GROSSMAN, Elie Primary Care Provider Obey Terry Jr Unavailable Reason For Referral No Information Plan Of Treatment No Information Insurance Providers Payer Name Payer Address Payer Phone Subscriber Number Group Number Insured Name Patient Relationship to Insured Coverage Start Date Coverage End Date [facility] [address] [place] [address] [id number] TOPHER MARTÍNEZ Self - patient is the insured
== END 2025-03-10 13:55 | disposition home or self-care (01) ==
LOC: HO.HAP 13:54
PROVIDERS: Visit Provider Internal Medicine
DX: Z13.89 Encounter for screening for other disorder (principal)

== ENCOUNTER 2025-03-13 13:31 | Outpatient (AMB) | payer MEDICARE, SELFPAY ==
--- NOTE | 2025-03-13 13:37 | MHC.OFFVIS ---
Vital Signs 03/13/25 13:41 Height 5 ft 1 in Weight 103 lb 9.876 oz BMI 19.6 BP 102/66 Blood Pressure Location Lt brachial Position Sitting Pulse 69 Pulse Source Monitor Intake Visit Reasons: 2 year f/up dr rdiley pt refill meds Sisal Operator Required: No Accompanied by: Self / Same As Patient Allergies No Known Allergies Allergy (Verified 01/03/25 13:45) Medication List - Last Reconciled 03/13/25 by Orlin Sanchez NP acetaminophen ER (Arthritis Pain Relief (acetaminophen) ER) 650 mg PO Q8H PRN 30 days alendronate 70 mg PO QWEEK aspirin 81 mg PO DAILY clobetasol 0.05% 1 appl topical DAILY estradiol 0.01%(0.1mg/gram) 1 g vaginal 2XW metoprolol succinate ER 25 mg PO DAILY HPI Comments Details: This is a 79-year-old female patient coming in requesting for an appointment to get a refill. Patient was previously seen in the office for palpitations for which patient was noted to have rare PACs and PVCs. Patient also with a history of PFO and intra-arterial septal aneurysm. Patient states that she was having a hard time getting her metoprolol refilled as her pharmacy requested her to be seen by our office. Today, patient is reporting feeling well overall without any symptoms of exertional chest pain, shortness of breath, palpitations, dizziness, orthopnea, PND, leg edema, presyncope or syncope. Patient is reporting compliance with all her medications. [facility] Medical History Tarlov cyst Allergic rhinitis Chronic leukopenia Vitamin B12 deficiency anemia Raynaud's syndrome Vitamin D deficiency Osteoporosis Lumbar degenerative disc disease Patent foramen ovale with atrial septal aneurysm Premature atrial contractions Premature ventricular contractions (PVCs) (VPCs) Pure hypercholesterolemia Normal colonoscopy (~11/06/18) Surgical History History of total hysterectomy History of removal of cyst History of hand surgery Family History Father No problems noted. Mother No problems noted. Social History Housing: House Alcohol intake: former Patient Tobacco Use Status: Never used Tobacco e-Cigarette/Vaping Use: Never Used Second Hand Smoke Exposure: No service: No Current occupational status: retired Cognitive needs: No Hearing needs: Yes (Hearing aids) Vision needs: Yes (Reading glasses) Review of Systems Const Denies chills, Denies fatigue, Denies fever(s), Denies frequent falls, Denies weakness, Denies weight gain and Denies weight loss ENT Denies dizziness Card Denies chest pain, Denies leg edema, Denies lightheadedness, Denies palpitations, Denies dyspnea and Denies dyspnea on exertion Resp Denies cough, Denies dyspnea and Denies dyspnea on exertion GI Denies hematochezia Musc Denies abnormal gait, Denies muscle weakness, Denies numbness, Denies radiating pain into limb and Denies tingling Neuro Denies abnormal gait, Denies dizziness, Denies frequent falls, Denies numbness, Denies tingling and Denies weakness Endo Denies fatigue and Denies palpitations Physical Exam Vital Signs: Last Vital Signs Pulse 69 03/13/25 13:41 BP 100/56 L 03/13/25 13:41 BMI result Body Mass Index 19.6 Const General: cooperative, healthy appearing, comfortable and no acute distress Orientation/consciousness: patient oriented x3 HEENT Head: Yes normal to inspection Neck Neck: Yes normal visual inspection, Yes trachea midline and Yes supple Chest Chest palpation & inspection: normal inspection of the chest Resp Effort & Inspection: normal respiratory effort Auscultation: clear to auscultation bilaterally, no crackles, no rales, no rhonchi and no wheezes Cardio Jugular venous distension: no JVD Palpation: normal PMI Rate: regular rate Rhythm: regular rhythm Heart sounds: S1 normal heart sound present, S2 normal heart sound present, no click, no gallops, no murmurs and no rubs Peripheral pulses: Peripheral pulses 2+ throughout GI Inspection: Yes normal to inspection Palpation (GI): Soft to palpation Auscultation: normal bowel sounds Skin General skin exam: no rashes or lesions noted Neuro General: patient oriented x3 Extrem General: Yes normal to inspection, No no pedal edema and No calf tenderness Psych Appearance: grossly normal Mental Status: mental status grossly normal Speech and movement: Normal speech and movement present Office Procedures EKG Details: EKG today showed normal sinus rhythm, rate 69 beats per minute, [place], [place] [id number], Complete Assessment & Plan Assessment & Plan (1) Premature ventricular contractions (PVCs) (VPCs): Code(s): I49.3 - Ventricular premature depolarization Category: Medical (2) Premature atrial contractions: Code(s): I49.1 - Atrial premature depolarization Category: Medical (3) Patent foramen ovale with atrial septal aneurysm: Code(s): Q21.1 - Atrial septal defect Category: Medical Plan 01/07/2020-echo study showed a normal LV systolic function with an ejection fraction between 60-65% with intra-atrial septal aneurysm and patent foramen ovale. Continue aspirin therapy. 03/13/2023-Holter study showed underlying normal sinus rhythm with rare supraventricular and ventricular ectopies. Clinically stable and without any cardiac symptoms. No changes in the medication regimen. Continue metoprolol therapy. Advised patient to call the office with any prolonged symptoms of palpitations. Blood pressure with a normal limits. Advised heart healthy diet, regular exercise, med compliance, and management of vascular risk factors. Patient can follow up on an as-needed basis. In the interim, patient will call the office with any concerns or change in symptoms. Otherwise, patient can have her medications refilled through PCP office. This note was generated using voice recognition software. While every effort has been made to ensure accuracy and proper night shift supervisor, there may be occasional errors that could affect the content or meaning of the described symptoms. Orders: Orders AMB EKG-In Office Today I49.3 - Ventricular premature depolarization Medications: Changed From metoprolol succinate ER 25 mg PO DAILY 90 tabs 3RF To metoprolol succinate ER refill by PCP moving forward 25 mg PO DAILY 90 tabs 3RF Coding Level of Care Code Est Pt Level 3 (56870) Complex EM visit Add On G2211 Diagnoses Premature ventricular contractions (PVCs) (VPCs) I49.3 Premature atrial contractions I49.1 Patent foramen ovale with atrial septal aneurysm Q21.1 CPT Codes EKG - CPT: 86232-[id number], Complete ([id number]) Time Spent (min) 28 Comment Time spent in reviewing the chart, test results, assessment, counseling and documentation.
[2025-03-13 13:41] VITALS: BP 102/66; PULSE 69; BMI 19.6
--- OUTSIDE RECORDS SUMMARY | 2025-03-13 14:15 | XMS_ITS | Patient Health Record ---
Author Organization [facility] Address [address] [place] [address] Care Team Providers Care Ell Tutor Name Role Phone Stanton GROSSMAN, Elie Primary Care Provider Obey Terry Jr Unavailable Reason For Referral No Information Plan Of Treatment No Information Insurance Providers Payer Name Payer Address Payer Phone Subscriber Number Group Number Insured Name Patient Relationship to Insured Coverage Start Date Coverage End Date [facility] [address] [place] [address] [id number] TOPHER MARTÍNEZ Self - patient is the insured
--- OUTSIDE RECORDS SUMMARY | 2025-03-13 14:15 | XMS_ITS | Clinical Summary ---
Author Organization [facility] Address [address] [place] [address] Phone Care Team Providers Care Flower Picker Name Role Phone Elie Eid MD Primary Care Provider [phone] [phone] Allergies No known active allergies Medications metoprolol [...] this was supposed to be done at [facility] but her insurance would not do [...] PM EDT Office Visit [facility] [address] [place] [address] Alphonso Paz, Age-related osteoporosis without current pathological fracture (Primary Dx) 02/07/2025 7:58 AM EDT - 02/07/2025 11:59 PM EDT Hospital Encounter [facility] [address] [place] [address] Alphonso Paz DO Discharge Disposition: Home or [...] PM EDT Office Visit [facility] [address] [place] [address] Alphonso Paz DO [address] [place] [address] Health Maintenance Due Date Last Done Comments [...] EDT) PROCOLL I INTACT N 14 mcg/L [facility] MED/PATH SUPERIOR Comment: (NOTE) REFERENCE VALUE Premenopausal: 19-83 Postmenopausal: 16-96 Blood 02/07/2025 8:06 AM EDT 02/07/2025 8:11 AM EDT Alphonso [facility] BLOOD ORDERABLES Final Resul t Performing Organization Address City/[facility] de Phone Number [facility] MED/PATH [address] [place] [address] * (ABNORMAL) Collagen type 1b-telopeptide, blood (02/07/2025 8:06 AM EDT) Pathologist [facility] Collagen CTx 113(L) pg/mL [facility] MED/PATH SUPERIOR Comment: (NOTE) REFERENCE VALUE 148-967 (18-29 y) 150-635 (30-39 y) 131-670 (40-49 y) 183-1060 (50-59 y) 171-970 (60-69 y) 152-858 (>70 y) 136-689 (Premenopausal) 177-1015 (Postmenopausal) Flagging is based on the age-specific reference interval and not menopausal status. Blood 02/07/2025 8:06 AM EDT 02/07/2025 8:11 AM EDT [facility] BLOOD ORDERABLES Final Resul t Performing Organization Address [facility] Co de Phone Number [facility] LAB MED/PATH [address] [place] [address] * (ABNORMAL) Comprehensive metabolic panel (02/07/2025 8:06 AM EDT) Pathologist [facility] SODIUM 142 133 - 146 mmol/L [facility] POTASSIUM 4.1 3.3 - 5.1 mmol/L [facility] CHLORIDE 105 96 - 108 mmol/L [facility] CO2 27 21 - 35 mmol/L [facility] BUN 27(H) 6 - 19 mg/dL [facility] CREATININE 0.60 0.5 - 1.5 mg/dL [facility] GLUCOSE 98 70 - 99 mg/dL [facility] ALBUMIN 3.5(L) 3.9 - 4.8 g/dL [facility] TOTAL PROTEIN 6.3(L) 6.5 - 8.0 g/dL [facility] CALCIUM 9.0 8.4 - 10.3 mg/dL [facility] ALKALINE PHOSPHATASE 42 39 - 117 U/L [facility] TOTAL BILIRUBIN 0.3 0.0 - 1.2 mg/dL [facility] AST 23 0 - 37 U/L [facility] ALT 18 0 - 40 U/L [facility] GLOBULIN 2.8 1 - 4.8 g/dL [facility] EGFR 92 >59 mL/min/1.7 3m2 [facility] Comment:Estimated glomerular filtration rate calculated using the CKD-EPI refit equation. ANION GAP 14 10 - 20 mmol/L [facility] Blood 02/07/2025 8:06 AM EDT 02/07/2025 8:12 AM EDT us [facility] B[facility]OD ORDER[facility]LES Final Resul t Performing Organization Address City/[facility]/ZIP Co de Phone Number [address] [address] * Phosphorus (02/07/2025 8:06 AM EDT) PHOSPHORUS 3.0 2.7 - 4.5 mg/dL [facility] 02/07/2025 8:06 AM EDT 02/07/2025 8:12 AM EDT [facility] BLOOD ORDERABLES Final Resul t Performing Organization Address City/[facility]/ZIP Co de Phone Number [address] [address] from Last 3 Months Insurance [employer] H[employer] REPLACEMENT [employer] H[employer] REPLAC[employer]AC[employer] Care Teams Flower Picker Relationship Specialty Start Date End Date Elie Eid MD [address] [place] [address] [place] [address] PCP - General Internal Medicine 05/03/23 Additional Source Comments The information contained in this document represents components of the legal health record. It is not the complete legal health record.[facility]
== END 2025-03-13 14:02 | disposition home or self-care (01) ==
DX: I49.3 Ventricular premature depolarization (principal); I49.1 Atrial premature depolarization; Q21.10 Atrial septal defect, unspecified
CPT/HCPCS: 93010; 99213; G2211

== ENCOUNTER → 2025-03-13 13:31 | Outpatient (BNVA) | payer MEDICARE, SELFPAY | DX: I49.3 Ventricular premature depolarization (principal); I49.1 Atrial premature depolarization; Q21.10 Atrial septal defect, unspecified | CPT/HCPCS: 93005; 99212 ==

== ENCOUNTER 2025-03-21 10:04 | Outpatient (REF) | payer MEDICARE, SELFPAY ==
--- OUTSIDE RECORDS SUMMARY | 2025-03-21 11:03 | XMS_ITS | Clinical Summary ---
Author Organization [facility] Address [address] [place] [phone] Phone Care Team Providers Care General Merchandise Salesperson Name Role Phone Elie Eid MD Primary Care Provider [phone] Allergies No known active allergies Medications metoprolol succinate (TOPROL-XL) 25 MG 24 hr tablet Take 1 tablet by mouth every morning. 3 Active estradioL (ESTRACE) 0.01 % (0.1 mg/gram) vaginal cream Place 1 g vaginally as needed. 2 Active cholecalciferol, vitamin D3, (VITAMIN D3) 25 mcg (1,000 unit) capsule Take 25 mcg by mouth daily. 2 Active aspirin 81 MG EC tablet Take 81 mg by mouth daily. Active CALCIUM-MAGNESIU M-ZINC ORAL Take 1 tablet by mouth daily. 333 mg calcium carbonate, 125 mg magnesium oxide, and 5 mg zinc sulfate monohydrate Active clobetasol (TEMOVATE) 0.05 % ointment Apply topically daily. 5 Active alendronate (FOSAMAX) 70 MG tabletIndication s:Age-related osteoporosis without current pathological fracture Take 1 tablet (70 mg total) by mouth every 7 days. 12 tablet 4 5 Active Active Problems Problem Noted Date Diagnosed Date [...] this was supposed to be done at [facility] but her insurance would not do [...] PM EDT Office Visit [facility] [address] [place] [address] Alphonso Paz DO Age-related osteoporosis without current pathological fracture (Primary Dx) 02/07/2025 7:58 AM EDT - 02/07/2025 11:59 PM EDT Hospital Encounter [facility] [address] [place] [address] Alphonso Paz DO Discharge Disposition: Home or [...] 1:00 PM EDT Office Visit [facility] [address] [place] [address] [place] [address] Alphonso Paz DO [address] [place] [address] [email or web address] Health Maintenance Due Date Last Done Comments [...] EDT) PROCOLL I INTACT N 14 mcg/L [facility] SUPERIOR Comment: (NOTE) REFERENCE VALUE Premenopausal: 19-83 Postmenopausal: 16-96 Blood 02/07/2025 8:06 AM EDT 02/07/2025 8:11 AM EDT Alphonso Paz LAB BLOOD ORDERABLES Final Resul t Performing Organization Address [facility] Co de Phone Number [facility] LAB MED/PATH [address] [place] [address] * (ABNORMAL) Collagen type 1b-telopeptide, blood (02/07/2025 8:06 AM EDT) Pathologist [facility] Collagen CTx 113(L) pg/mL [facility] MED/PATH SUPERIOR Comment: (NOTE) REFERENCE VALUE 148-967 (18-29 y) 150-635 (30-39 y) 131-670 (40-49 y) 183-1060 (50-59 y) 171-970 (60-69 y) 152-858 (>70 y) 136-689 (Premenopausal) 177-1015 (Postmenopausal) Flagging is based on the age-specific reference interval and not menopausal status. Blood 02/07/2025 8:06 AM EDT 02/07/2025 8:11 AM EDT Alphonso Paz [facility] BLOOD ORDERABLES Final Resul t Performing Organization Address [facility] de Phone Number [facility] LAB MED/PATH [address] [place] [address] * (ABNORMAL) Comprehensive metabolic panel (02/07/2025 8:06 AM EDT) Pathologist [facility] SODIUM 142 133 - 146 mmol/L [facility] POTASSIUM 4.1 3.3 - 5.1 mmol/L [facility] CHLORIDE 105 96 - 108 mmol/L [facility] CO2 27 21 - 35 mmol/L [facility] BUN 27(H) 6 - 19 mg/dL [facility] CREATININE 0.60 0.5 - 1.5 mg/dL [facility] GLUCOSE 98 70 - 99 mg/dL [facility] ALBUMIN 3.5(L) 3.9 - 4.8 g/dL [facility] TOTAL PROTEIN 6.3(L) 6.5 - 8.0 g/dL [facility] CALCIUM 9.0 8.4 - 10.3 mg/dL [facility] ALKALINE PHOSPHATASE 42 39 - 117 U/L [facility] TOTAL BILIRUBIN 0.3 0.0 - 1.2 mg/dL [facility] AST 23 0 - 37 U/L [facility] ALT 18 0 - 40 U/L [facility] GLOBULIN 2.8 1 - 4.8 g/dL [facility] EGFR 92 >59 mL/min/1.7 3m2 [facility] Comment:Estimated glomerular filtration rate calculated using the CKD-EPI refit equation. ANION GAP 14 10 - 20 mmol/L [facility] Blood 02/07/2025 8:06 AM EDT 02/07/2025 8:12 AM EDT us Alphonso Paz LAB BLOOD ORDERABLES Final Resul t Performing Organization Address [facility] Co de Phone Number [address] [address] * Phosphorus (02/07/2025 8:06 AM EDT) PHOSPHORUS 3.0 2.7 - 4.5 mg/dL [facility] 02/07/2025 8:06 AM EDT 02/07/2025 8:12 AM EDT [facility] Final Resul t Performing Organization Address [facility] Co de Phone Number [address] [address] from Last 3 Months Insurance [employer] H[employer] Care Teams General Merchandise Salesperson Relationship Specialty Start Date End Date Elie Eid MD [address] [place] [address] Dr [address] [place] [address] [place] [address] PCP - General Internal Medicine 05/03/23 Additional Source Comments The information contained in this document represents components of the legal health record. It is not the complete legal health record.[facility]
--- OUTSIDE RECORDS SUMMARY | 2025-03-21 11:03 | XMS_ITS | Patient Health Record ---
Author Organization [facility] Address [address] [place] [address] Care Team Providers Care High Density Press Laborer Name Role Phone Stanton GROSSMAN, Elie Primary Care Provider Obey Terry Jr Unavailable Reason For Referral No Information Plan Of Treatment No Information Insurance Providers Payer Name Payer Address Payer Phone Subscriber Number Group Number Insured Name Patient Relationship to Insured Coverage Start Date Coverage End Date [facility] [address] [place] [address] [phone] [id number] TOPHER MARTÍNEZ Self - patient is the insured
== END 2025-03-21 10:05 | disposition home or self-care (01) ==
LOC: HO.HMGCX 10:04
PROVIDERS: PCP Internal Medicine Geriatric Medicine; Visit Provider Internal Medicine Geriatric Medicine
DX: Z13.89 Encounter for screening for other disorder (principal)

== ENCOUNTER 2025-03-24 07:17 | Outpatient (REF) | payer MEDICARE, SELFPAY ==
--- NOTE | ~2025-03-24 | XR_ITS ---
CLINICAL HISTORY: FULL SPINE, ANTERIOR POSTERIOR, IDIOPATHIC SCOLIOSIS --- Additional Notes or Special Instructions: WO AP scoliosis images of the spine. COMPARISON: None provided. FINDINGS: Visualized portions of the lungs and abdomen are unremarkable. Osteopenia. Levocurvature of the lumbar spine present measuring 43 degrees as measured from the inferior endplate of T11 to superior endplate of L5. No vertebral body anomaly identified although osteopenia limits evaluation. Negative coronal balance. No pelvic tilt.Multilevel degenerative changes of the lumbar spine with loss of disc space height and prominent osteophytes. IMPRESSION: 1. Marked levocurvature of the mid lumbar spine with measurements as above. 2. Negative coronal balance. 3. Degenerative changes of the lumbar spine. 4. Osteopenia. This document has been electronically signed by: Bryan Coreas MD on 03/24/2025 15:29:50
--- OUTSIDE RECORDS SUMMARY | 2025-03-24 07:20 | XMS_ITS | Patient Health Record ---
Author Organization [facility] Address [address] [place] [address] Care Team Providers Care Scientific Informatics Leader Name Role Phone Stanton GROSSMAN, Elie Primary Care Provider Obey Terry Jr Unavailable [phone] Reason For Referral No Information Plan Of Treatment No Information Insurance Providers Payer Name Payer Address Payer Phone Subscriber Number Group Number Insured Name Patient Relationship to Insured Coverage Start Date Coverage End Date [facility] [address] [place] [address] [id number] TOPHER MARTÍNEZ Self - patient is the insured
--- OUTSIDE RECORDS SUMMARY | 2025-03-24 07:20 | XMS_ITS | Clinical Summary ---
Author Organization [facility] Address [address] [place] [address] Phone Care Team Providers Care Trade Show Coordinator Name Role Phone Elie Eid MD Primary Care Provider [phone] Allergies No known active allergies Medications metoprolol [...] this was supposed to be done at [facility] but her insurance would not do it [...] PM EDT Office Visit [facility] [address] [place] [address] Alphonso Paz DO Age-related osteoporosis without current pathological fracture (Primary Dx) 02/07/2025 7:58 AM EDT - 02/07/2025 11:59 PM EDT Hospital Encounter [facility] [address] [place] [address] Alphonso Paz DO Discharge Disposition: Home or [...] 1:00 PM EDT Office Visit [facility] [address] [place] [address] [place] [address] Alphonso Paz DO [address] [place] [address] [email or web address] Health Maintenance Due Date Last Done Comments Adult Td,Tdap Booster 1945 LIPID PANEL 1945 DEPRESSION SCREENING 1959 HEPATITIS C SCREENING 1965 PNEUMOCOCCAL VACCINES (50+ y ears) (1 of 1 - PCV) 1997 ZOSTER VACCINES (1 of 2) 1997 OSTEOPOROSIS SCREENING INITI AL (ONE-TIME) 2012 RSV VACCINE (1 - 1-dose 75+ series) 2022 INFLUENZA VACCINE (#1) 2025 COVID-19 VACCINE (1 - 2023-2 5 season) 2025 SMOKING STATUS SCREENING (On ce After [...] EDT) PROCOLL I INTACT N 14 mcg/L [facility] Comment: (NOTE) REFERENCE VALUE Premenopausal: 19-83 Postmenopausal: 16-96 Blood 02/07/2025 8:06 AM EDT 02/07/2025 8:11 AM EDT Alphonso Paz LAB BLOOD ORDERABLES Final Resul t Performing Organization Address City/[facility] Co de Phone Number [facility] MED/PATH [address] [place] [address] * (ABNORMAL) Collagen type 1b-telopeptide, blood (02/07/2025 8:06 AM EDT) Pathologist [facility] Collagen CTx 113(L) pg/mL [facility] MED/PATH SUPERIOR Comment: (NOTE) REFERENCE VALUE 148-967 (18-29 y) 150-635 (30-39 y) 131-670 (40-49 y) 183-1060 (50-59 y) 171-970 (60-69 y) 152-858 (>70 y) 136-689 (Premenopausal) [phone] (Postmenopausal) Flagging is based on the age-specific reference interval and not menopausal status. Blood 02/07/2025 8:06 AM EDT 02/07/2025 8:11 AM EDT Alphonso Paz [facility] BLOOD ORDERABLES Final Resul t Performing Organization Address [facility] de Phone Number [facility] LAB MED/PATH SU[address]IOR DR [address]on [address] [place] [address] * (ABNORMAL) Comprehensive metabolic panel (02/07/2025 8:06 AM EDT) Pathologist [facility] SODIUM 142 133 - 146 mmol/L [facility] POTASSIUM 4.1 3.3 - 5.1 mmol/L [facility] CHLORIDE 105 96 - 108 mmol/L [facility] CO2 27 21 - 35 mmol/L [facility] BUN 27(H) 6 - 19 mg/dL [facility] CREATININE 0.60 0.5 - 1.5 mg/dL [facility] GLUCOSE 98 70 - 99 mg/dL [facility] ALBUMIN 3.5(L) 3.9 - 4.8 g/dL [facility] TOTAL PROTEIN 6.3(L) 6.5 - 8.0 g/dL [facility] CALCIUM 9.0 8.4 - 10.3 mg/dL [facility] ALKALINE PHOSPHATASE 42 39 - 117 U/L [facility] TOTAL BILIRUBIN 0.3 0.0 - 1.2 mg/dL [facility] AST 23 0 - 37 U/L [facility] ALT 18 0 - 40 U/L [facility] GLOBULIN 2.8 1 - 4.8 g/dL [facility] EGFR 92 >59 mL/min/1.7 3m2 [facility] Comment:Estimated glomerular filtration rate calculated using the CKD-EPI refit equation. ANION GAP 14 10 - 20 mmol/L [facility] Blood 02/07/2025 8:06 AM EDT 02/07/2025 8:12 AM EDT us Alphonso Paz LAB BLOOD ORDERABLES Final Resul t Performing Organization Address [facility] Co de Phone Number [address] [address] * Phosphorus (02/07/2025 8:06 AM EDT) PHOSPHORUS 3.0 2.7 - 4.5 mg/dL [facility] 02/07/2025 8:06 AM EDT 02/07/2025 8:12 AM EDT [facility] Final Resul t Performing Organization Address [facility] Co de Phone Number [address] [address] from Last 3 Months Insurance [employer] H[employer] H[employer] Care Teams Trade Show Coordinator Relationship Specialty Start Date End Date Elie Eid MD [address] [place] [address] Dr [address] [place] [address] [place] [address] PCP - General Internal Medicine 05/03/23 Additional Source Comments The information contained in this document represents components of the legal health record. It is not the complete legal health record.[facility]
== END 2025-03-24 07:18 | disposition home or self-care (01) ==
LOC: HO.XRAY 07:17
PROVIDERS: PCP Internal Medicine Geriatric Medicine; Visit Provider Internal Medicine Geriatric Medicine
DX: M41.20 Other idiopathic scoliosis, site unspecified (principal)
CPT/HCPCS: 72081

== ENCOUNTER → 2025-03-24 07:30 | Outpatient (BNV) | payer MEDICARE, SELFPAY | PROVIDERS: PCP Internal Medicine Geriatric Medicine; Visit Provider Radiology Diagnostic Radiology | DX: M41.86 Other forms of scoliosis, lumbar region (principal); M85.88 Other specified disorders of bone density and structure, other site | CPT/HCPCS: 72081 ==

== ENCOUNTER 2025-07-08 14:42 | Outpatient (REF) | payer MEDICARE, SELFPAY ==
--- OUTSIDE RECORDS SUMMARY | 2025-07-08 16:02 | XMS_ITS | Continuity of Care Document ---
Author Organization [facility] Shippter s [facility], [facility] Address [address] [address] Care Team Providers Care Cargo Trimmer Name Role Phone [place], JOHN OTHER ALEJA LOPEZ OTHER 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 Initial visit: concerns about staying active, managing pain, and addressing nutritional issues. Assessment and plan: Mind: Cognition: No noted concerns at this time. Labs: Vitamin B12: 235 pg/mL , Folate: 13.9 ng/mL, TSH: 1.41 mIU/L Head imagin05/09/2024 (done after a fall) - CT Brain: No acute intracranial hemorrhage, Mild microangiopathy, Generalized cerebral volume loss, Moderate multilevel degenerative spondyloarthropathy of the cervical spine, Small right posterior scalp hematoma Assessment: - Plan: Continue to treat B12 def There are some things that we know can help with overall cognition. Important to be an active listener - repeat back, write things down. Our ability to multi- task gets worse as we get older Try to just do one thing at a time Physical activity is the best thing - 30 minutes 4-5 times a week but start off slow and build up Mental activity - learning a new skill Social activity Meditation and/or [place] Chi can help I personally spent 70 minutes preparing for, caring for the patient (F2F and non-F2F), and finalizing the visit for this patient, which included discussion with patient and/or family about diagnosis, prognosis, recommendations, risk/benefits, risk reduction and education of above. F/u in 2-3 months Not available 07/01/2025 06:54:00 Plan of Treatment Reminders Order Date Submit Date Provider Last Modified By Organization Details Last Modified Time Details Appointments FOLLOW UP 30 2025 09:30A M Josette Kwon MD Not available Not available Not available Lab lipase, serum or plasma 2024 [facility], [address] [place] [address] [place], [address], 07/07/2025 04:12:26 CMP, serum or plasma 2024 [facility], [facility] [place], [address], 07/07/2025 04:12:26 amylase, serum or plasma 2024 025 [facility], [facility] [place], [address], 07/07/2025 04:12:26 HbA1c (hemoglo bin A1c), blood 2024 025 [facility], [place], [address], 07/07/2025 04:12:26 CBC w/ auto diff 2024 025 [facility], [place], [address], 07/07/2025 04:12:25 vitamin B12 + folate, serum or blood 2024 025 [facility], [place], [address], 07/07/2025 04:12:26 mma (methylm alonic acid), serum 2024 025 [facility], [address] [place] [address] [place], [address], 07/07/2025 04:12:26 Referral None recorded . Procedures None recorded . Surgeries None recorded . Imaging None recorded . Medication Orders None recorded . Patient TargetsNo targets recorded. Patient InstructionsNo instructions recorded. Reason for Referral None Reported. Problems Name Problem SNOMED Code Status Onset Date Resolution Date Notes Provider Name and Address Organization Details Recorded Time Hearing loss 04686776 Active 2024 Cyrus sabillon [employer] [facility] 10:28:54 Bilateral tinnitus 504112279704 2 Active 2024 Cyrus Mathias [employer] [facility] 10:29:13 History of diverticu litis 459850426258 100 Active 2024 Cyrus Mathias [employer] bio [employer] [facility] 10:29:36 Arthritis 4177920 Active 2024 Cyrus Stew [employer] [facility] 10:29:48 Senile osteoporo sis 23416356 Active 2024 [employer] [facility] 10:30:09 Atrial arrhythmi a 65374972 Active 2024 Cyrus Stew [employer] [facility] 10:30:31 Hyperchol esterolem ia 17759254 Active 2024 Cyrus Stew [employer] [facility] 10:30:42 Skin lesion 25514050 Active 2024 Josette Kwon MD [address], [place], [address], [facility] 14:04:30 Lichen sclerosus 657655523 Active 2024 Josette Kwon MD [address], [place], [address], [facility] 14:04:31 History of fall 288348382 Active 2024 Josette Kwon MD [address], [place], [address], [employer] 14:23:00 Chronic low back pain 945663276 Active 2024 Josette Kwon MD [address], [place], [address], [employer] [facility] 14:24:50 Seen by primary care physician 315112950410 9 Active 2024 Josette Kwon MD [address], [place], [address], [employer] [facility] 13:49:12 Active or passive immunizat ion Active 2024 Josette Kwon MD [address], [place], [address], [employer] [facility] 13:49:18 Advance care planning Active 2024 Josette Kwon MD [address], [place], [address], [employer] [facility] 13:49:29 Goal achieveme nt finding 913051268 Active 2024 Josette Kwon MD [address], [place], [address], [employer] 13:49:31 Cobalamin deficienc y 824626295 Active 2024 Josette Kwon MD [address], [place], [address], [employer] [facility] 20:34:39 Leukopeni a 98310860 Active 2024 Josette Kwon MD [address], [place], [address], [employer] [facility] 20:34:59 Patent foramen ovale 976133446 Active 2024 Josette Kwon MD [address] [facility], [place], [address], [facility] 5 20:40:59 Gastroint estinal symptom 201103623 Active 2024 Josette Kwon MD 264 [facility], [place], [address], [facility] 5 20:41:01 Neoplasti c disease of uncertain behavior 601532957 Active 2024 diagnosed in April 2025 Josette Kwon MD [address] [facility], [place], [address], [facility] 5 14:33:46 Problem Notes None recorded. Medical Equipment None Reported. Allergies No known drug allergies Medications Name Sig Start Date Stop Date Status Note LastModified by Organization Details LastModified Time alendronate 70 mg tablet TAKE 1 TABLET (70 MG TOTAL) BY MOUTH EVERY 7 DAYS active Not Available Not Available No t Available naproxen 250 mg tablet TAKE 1 TABLET ORALLY 2 TIMES A DAY NEEDED FOR PAIN TAKE IT WITH FOOD AND FULL GLASS OF WATER active Not Available Not Available No t Available acetaminophen ER 650 mg tablet,extend ed release TAKE 1 TABLET BY MOUTH EVERY 8 HOURS NEEDED FOR PAIN FOR 30 DAYS active Not Available Not Available No t Available aspirin 81 mg tablet Take 1 tablet every day by oral route. active Not Available Not Available No t Available metoprolol succinate ER 25 mg tablet,extend ed release 24 hr TAKE 1 TABLET BY MOUTH EVERY DAY REFILLS BY PCP MOVING FORWARD active Not Available Not Available No t Available clobetasol 0.05 % topical ointment APPLY TOPICALLY DAILY active Not Available Not Available No t Available estradiol 0.01% (0.1 mg/gram) vaginal cream INSERT 1 GRAM VAGINALLY AT BEDTIME TWICE PER WEEK active Not Available Not Available No t Available Calcium 600 2X DAILY active Not Available Not Available Not Available B12 active Not Available Not Availa ble Not Available Vitals Date Recorded Body height Heart rate Oxygen saturation Body mass index (BMI) Body weight Systolic And Diastolic Provider Name and Address Organization Details Last Updated DateTime 5 152.4 cm 63 /min 97 % 20.3 kg/m2 82184.5 3 g 102/60 mm[Hg] [facility] 14:22:10 Social History None recorded. Functional Status None recorded. Mental Status None recorded. Family History Relationship Description Onset Age of this Age Resolved Age Notes LastModified by Organization Details LastModified Time Father Family history of stroke 61 61 [email or web address] Not available 2024 10:43:10 Notes:Family History - Broth er: Living, resides in [place] Medical History Condition Response Coronary Artery Disease N Other N Gout N Kidney Stones N Blood Diseases N Hyperthyroidism N Blood Transfusion N Emphysema N Depression N COPD N Incontinence Y Edema N Anxiety Disorder N Muscle, Joint, or Bone Problems Y Obesity N Vision or Eye Problems N Arthritis Y Polyps N Infertility N Mental Disorder N Acid Reflux (GERD) N Cancer N Varicosities Y Stroke N Headaches N Fibromyalgia N Kidney Disease N Abnormal Bleeding N Heart Problems Y Ear or Hearing Problems Y Hospitalizations Y Skin Problems N Eating Disorder N MRSA exposure N Urinary Problems Y Constipation Y Abdominal Pain N Tuberculosis N AIDS/HIV N Back Problems Y Asthma N Hepatitis N Pulmonary Embolism N Chronic Ear Infections N Chicken Pox Y Autism Spectrum Disorder (ASD) N Thrombophilias N Thyroid Disease N Breast Cancer N Hypothyroidism N Lung Disease N Defects or Inherited Disease N Developmental or Behavioral Disorders N Breast Problem N Difficulty Swallowing N Anesthesia Complications N Deep Vein Thrombosis N Meniere's disease N Hearing Loss Y Abnormal Pap Smear N Endometriosis Y Bladder or Kidney Problems N High Cholesterol Y Liver Disease N Nervous System Disorder N Allergies/Hayfever N Parkinson's Disease N Thyroid Problems N GI Problems N ADD/ADHD N Anemia N Heart Attack ([place]) N Mental Illness N Diabetes N Ovarian Cancer N Bedwetting N Seizures/Epilepsy N Congestive Heart Failure (CHF) N Eczema N Abuse/Domestic Violence N Dementia N Diverticulitis Y Reflux/GERD N Heart Disease N Hypertension N Pre-Eclampsia N Osteoporosis Y Gynecological HistoryNo gynecological history recorded. Obstetrics History GPAL:G 0 P 0 0 0 0 Past Encounters Encounter ID Performer Location Encounter Start Date Encounter Closed Date Diagnosis/Indication Diagnosis SNOMED-CT Code Diagnosis ICD10 Code Diagnosis IMO Codes Diagnosis Note [id number] MD [facility] [address] [place] [address] 06/30/2025 13:48:12 07/01/2025 07:20:29 Active or passive immunization 581249891 Z23 WYIS ID: [id number] - accessed 04.01.25 Due: PneumoPCV - she will work to get it. SummaryImm unizations RSV 07/24/2023 HistoryTda p 01/11/2017 HistoryPne umoPPV 07/13/2016 (H) HistoryFlu 07/13/2016 (H) 08/17/2017 05/08/2018 04/16/2019 04/17/2020 04/14/2021 04/23/2022 05/12/2023 04/23/2024 05/05/2025 HistoryCOV ID-[id number] 09/05/2020 10/03/2020 05/11/2021 11/01/2021 04/23/2022 05/05/2023 04/23/2024 05/05/[address] 05/06/2012 07/16/2022 11/20/2022 History [facility] by [facility] [id number] 109 Z76.89 CPE: Specialist s:Dr. Paz, endocrinol ogistDr Lopez, [facility] - Labs:CBC: wbc 4.5, hgb 12.9, hct 39.3, MCV 98, rdw 13.2, plt 198CMP: Sodium: 141 mmol/L, Potassium: 4.1 mmol/L, Chloride: 106 mmol/L, Carbon dioxide: 28 mmol/L, Anion gap: 11, BUN: 24 mg/dL, Creatinine : 0.58 mg/dL, Fasting glucose: 99 mg/dL, Calcium: 9.3 mg/dL, Total bilirubin: 0.4 mg/dL, AST: 35 U/L, ALT: 38 U/L, Alkaline phosphatas e: 44 U/L, Total protein: 6.7 g/dL, Albumin: 3.9 g/dL,Vitam in B12: 235 pg/mL, Folate: 13.9 ng/mL, TSH: 1.41 mIU/L [facility]:Ech ocardiogra m: Intra-atri al septal aneurysm with PFO, Normal Dopplers, Ejection fraction: 60-65%, Normal diastolic function (11/09/2017 )BMI: 20.7Lipids : : Total cholestero l: 219 mg/dL, LDL: 143 mg/dL, HDL: 67 mg/dL, Triglyceri richard: 47 mg/dL,Diab etes: Will check AIC with next lab check.BP control: very well controlled AAA screen: - [facility] osm[facility]: [place] SmimatthewVisi on: Dr Lowry, [facility] - maybe cataracts in a year. Cancer Screening: Breast: 2023 - [facility], check on next - I beliwve it has been scheduled. Cervical: N/AColon: [facility] - Colonoscop y: Normal (11/06/2018 )Lung: - Diet & Exercise:carline frank her dogOsteopo rosis Screening: DEXA @ [facility] 01/2025 - osteoporos isOther Health screening: Records from [facility] reviewed. There were no available pain management , cardiology notes Preventive CareAssess ment: Recent labs show elevated total cholestero l (219) and LDL (143), but patient is not currently on cholestero l medication .Plan:- Consider PCV vaccine- Get labs done in 3 months Advance care planning 71 [id number] Z71.89 Health Care Proxy: yes - Elizabeth Littlejohn , cousin - she brought us a copyMOLST: noOther: - Atrial arrhythmia 161611 09 I49.8 3934 has history of bigeminy,S een by Dr Momin n, Cards, last summer, dismissed as stable after a few year f/u.Tiana cottrelly on metoprolol ER 25 mg and aspirin 81 mg. Blood pressure is reported as good.Plan: - Continue metoprolol ER 25 mg- Continue aspirin 81 mg Hypercholesterolemia 136 78267 E78.00 65104 Total cholestero l: 219 mg/dL, LDL: 143 mg/dL, HDL: 67 mg/dL, Triglyceri richard: 47 mg/dL,Has not taken medication s and has been reluctant to do so.Overall no sig risk factors but elevated chol/LDLDo esnt want to take a statin - has been like this for years. Senile osteoporosis 1804 0001 M81.0 [id number] Assessment : Patient has a history of osteoporos is and has been on Fosamax for 2 years.Rece nt bone density test in January 2025 showed improvemen t in lumbar spine from -2.9 to -0.6. Total hip T-score improved from -3.5 in December 2022 to -3.3, and left femoral neck T-score improved from -2.8 to -2.6. Patient reports constipati on and digestive issues as side effects of Fosamax but is managing them.- Bone Density Test (January 2025):- Lumbar spine: -0.6 (improved from -2.9)- Total hip: -3.3 (improved from -3.5 in December 2022)- Left femoral neck: -2.6 (improved from -2.8 in December 2022)Vitam in D25: 96 ng/mL (11/2024) Plan:- Plan to hold Fosamax for a month to see if GI symptoms improve.- Consider reassessme nt of osteoporos is treatment after 5 years of Fosamax therapy- Could also consider Reclast, yearly infusion.- Maintain current calcium and continue vitamin D supplement ation - was taking more than recommende d and cut down. Will repeat level in a few months.- consider Vitamin K- Encourage weight-emily ring exercises as tolerated- Follow up with Dr. Paz for osteoporos is management Lichen sclerosus 9516819 01 L90.0 87016 Assessment : Patient has a history of lichen sclerosis and uses clobetasol ointment for treatment. The ointment form is preferred due to less systemic absorption , which is a concern given the patient's osteoporos is.- Gisselle went to see Urogyn, Dr Lopez who recommende d using dilators regularly, and added on estrogen twice weekly. She has f/u scheduled. Plan:- Continue clobetasol ointment- Now back on estrogen twice weekly Skin lesion 53479031 L98 .9 90503 Assessment : Patient was seen by [facility] dermatolog y and had a keratosis removed from hand and biopsy of right synagogue lesion confirming basal cell carcinoma. Mohs surgery has been scheduled for August at [facility].Plan:- Mohs surgery scheduled for August at [facility] for right synagogue basal cell carcinoma- Complete skin examinatio n will be performed at that visit Chronic low back pain 27 7255484 M54.42 G89.29 [id number] Assessment : Patient reports chronic back pain related to scoliosis, with ribs diving into hip. MRI at [facility] revealed L5 nerve root impingemen t, causing pain in left buttock and radiating down the leg. Pain is exacerbate d by sitting but not by walking. Patient has undergone pain management at [facility] and uses Tylenol for pain control, typically 500 mg once or twice daily. Since last visit, X-ray of the back was obtained. [facility] March for further evaluation and management . Dr. Xie has mentioned techniques like breathing and stretching for management . She is in less pain. Plan:- Follow up with Dr. Xie- Continue to implement breathing and stretching techniques as recommende d by Dr. Xie- Continue working with current satellite installer who is josseline rodriguez about osteoporos is- Encourage strength training, focusing on triceps and balance exercises- Increase weights gradually and safely under guidance- Continue Tylenol up to 3000 mg daily as needed for pain- Consider prescripti on for lidocaine patch or diclofenac gel- Continue with acupunctur e- Is using [place] walking sticks in good weather, which is great Leukopenia 23532657 D72. 819 [id number] Patient has a history of chronic leukopenia which per Gisselle, has been worked up by hematology and thought to be idiopathic and overall stable. Recent labs from December 10, 2024, show normal renal and liver function tests. Cobalamin deficiency 190 139301 E53.8 721280 B12 level was 235 - we would like this to be greater than 400.Plan:- Continue sublingual B12 supplement 1000 mcg daily- Recheck B12 levels in 3-6 months Gastrointe stinal symptom 139189616 R19.8 815141 Assessment : Gastrointe stinal symptoms on FosamaxAss essment: Patient reports significan t gastrointe stinal symptoms including increased gas production , alternatin g constipati on and loose stools, and occasional fecal incontinen ce with gas. Symptoms appear to worsen after eating and have developed progressiv garrick while on Fosamax therapy taken weekly for 2 years. Patient attributes symptoms to Fosamax, noting they were not present initially but have worsened over time. Symptoms are affecting quality of life and causing anxiety about eating in public. Plan:- Discontinu e Fosamax for one month trial to assess symptom improvemen t- If symptoms resolve but bone protection still needed, consider alternativ e therapies such as Reclast infusion every 6 months or annually- Patient education provided regarding safety of temporary Fosamax discontinu ation given drug's prolonged bone effects- Continue current dietary modificati ons (prunes, coffee) as tolerated- Monitor effect of broccoli consumptio n on gas symptoms- Consider referral to [facility] Velasquez in [place] for further dietary guidance if symptoms persist Health Concerns Section Related Observation LastModified by Organization Detai ls LastModified Time None Recorded Concern Status LastModified by Organization Details LastModified Time None Recorded Payers Encounter Date Sequence Insurance Name Policy Number Policy Quiles Covered Member ID Quiles Member ID Guarantor Name 06/30/2025 1 [facility] - MEDICARE ADVANTAGE PLAN (MEDICARE REPLACEMENT HMO) [id number] Bonny Parish [id number] Bonny Parish Notes Date Note Type Note Provider Name and Address Organization Details Recorded Time 06/30/2025 text/html Annual WellnessReported by PatientROS as noted in the HPI Since last visit, 9.16.25 History of Present Illness Gisselle returns for follow-up approximately 3 months after her last visit in March. She reports several updates regarding her ongoing medical conditions and recent specialist consultations. Regarding her skin concerns, she was seen by dermatology where a seborrheic keratosis was removed from her hand and a biopsy of a lesion on her right synagogue revealed basal cell carcinoma. She has Mohs surgery scheduled for August at [facility] for the basal cell carcinoma. For her lichen sclerosis, she saw Dr. Mike who restarted her on estrogen twice weekly, which she reports is helping. She states her incontinence is much better than it was even with just the estrogens. She was prescribed dilators to use 2-3 times a week but had stopped using them because they were so irritating, though she has recently restarted. She continues to use K-Y lubricant and will see Dr. Mike again in six months. She completed physical therapy with Dr. Xie, who provided her with exercises and videotaped her gait analysis. Dr. Xie recommended [place] walking sticks, which she finds helpful for posture, though she notes the current icy conditions make walking difficult. 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 These symptoms seem to worsen after eating and are affecting her social activities as she becomes anxious about where she eats. She takes Fosamax every Monday and took it the day of this visit. She obtained her flu and COVID vaccinations but has not yet received her pneumonia vaccination. She purchased a new mattress to replace her 30-year-old one, which she feels has improved her sleep. She maintains her vegetarian diet, having not eaten meat for 55 years, and keeps her home temperature at 68 degrees. Medical History- Basal cell carcinoma of right synagogue, diagnosed recently- Seborrheic keratosis of hand, removed recently- Lichen sclerosis- Leukopenia- Elevated lipids- Loss of height over the yearsMedications and Supplements- Fosamax every Monday- Patient believes it causes digestive issues including gas, bowel irregularity, and occasional stool with gas- Estrogen twice a week- Helping with lichen sclerosis, incontinence much better than before- B12 under the tongue- Calcium pill Josette Kwon MD [address] [place] [address], [address], [facility] - [facility] 07/01/2025 07:04:52 OBGyn Episode No OBEpisode recorded.
--- OUTSIDE RECORDS SUMMARY | 2025-07-08 16:02 | XMS_ITS | Patient Health Record ---
Author Organization [facility] Address [address] [place] [address] Care Team Providers Care Youth Corrections Officer Name Role Phone Stanton GROSSMAN, Elie Primary Care Provider Obey Terry Jr Unavailable [phone] Reason For Referral No Information Plan Of Treatment No Information Insurance Providers Payer Name Payer Address Payer Phone Subscriber Number Group Number Insured Name Patient Relationship to Insured Coverage Start Date Coverage End Date [facility] [address] [place] [phone] [id number] TOPHER MARTÍNEZ Self - patient is the insured
--- OUTSIDE RECORDS SUMMARY | 2025-07-08 16:02 | XMS_ITS | Clinical Summary ---
Author Organization [facility] Address [address] [place] [id number] Phone Care Team Providers Care Potato [employer] Processing Supervisor Name Role Phone Elie Eid MD Primary Care Provider [phone] Allergies No known active allergies Medications metoprolol [...] this was supposed to be done at [facility] but her insurance would not do [...] osteoporosis. She will follow in 3 months. Family History Medical History Relation Comments Stroke [...] Description 02/19/2026 1:00 PM EDT Office Visit [facility] [address] [place] [id number] Alphonso Paz DO [address] [place] [phone] [email or web address] Health Maintenance Due Date Last Done Comments Adult Td,Tdap Booster 1947 LIPID PANEL 1947 DEPRESSION SCREENING 1959 HEPATITIS C SCREENING 1965 PNEUMOCOCCAL VACCINES (50+ y ears) (1 of 1 - PCV) 1997 ZOSTER VACCINES (1 of 2) 1997 OSTEOPOROSIS SCREENING INITI AL (ONE-TIME) 2012 RSV VACCINE (1 - 1-dose 75+ series) 2022 INFLUENZA VACCINE (#1) 2025 COVID-19 VACCINE ( - 2024-2 6 season) 2025 SMOKING STATUS SCREENING (On ce [...] this topic Medical Devices Not on file Insurance [employer] RE[employer]EMENT [employer] Care Teams Potato Chip Processing Supervisor Relationship Specialty Start Date End Date Elie Eid MD [address] [place] [address] [facility] [place] [address] PCP - General Internal Medicine 05/03/23 Additional Source Comments The information contained in this document represents components of the legal health record. It is not the complete legal health record.[facility]
--- OUTSIDE RECORDS SUMMARY | 2025-07-08 16:02 | XMS_ITS | Data Portability ---
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 Assessment and plan: Mind: Cognition: No noted concerns at this time. Labs: will check Head imaging: will check in [facility] records Assessment: - Plan: There are some things that we know [...] activity Meditation and/or D[place] Chi can help Mood: GAD7: 0 PHQ9: 0 Plan: No concerns at this time. Mobility: Medications: no inappropriate medications. Matters most: staying healthy I personally spent 160 minutes preparing for, caring for the patient (F2F and non-F2F), and finalizing the visit for this patient, which included discussion with patient and/or family about diagnosis, prognosis, recommendations, risk/benefits, risk reduction and education of above. Will f/u in 1 month for CPE. Will look to [facility] records for recent labs, head imaging, dexa, other imaging (MRI spine), last PCP note, cardiology note, Pain mgmt note and 2decho. 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 a history of PFO, bigeminy, scoliosis, osteoporosis, chronic leukopenia, Raynaud's syndrome, rosacea, lichen sclerosis, and endometriosis, presenting for an initial visit with concerns about staying active, managing pain, and [...] right posterior scalp hematoma Assessment: - Plan: There are some things that we know [...] Denton Chi can help I personally spent 80 minutes preparing for, caring for the patient (F2F and non-F2F), and finalizing the visit for this patient, which included discussion with patient and/or family about diagnosis, prognosis, recommendations, risk/benefits, risk reduction and education of above. 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 a history of PFO, bigeminy, scoliosis, [...] available Lab lipase, serum or plasma 2024 025 [facility], [place], [address], 07/07/2025 04:12:26 CMP, serum or plasma 2024 025 [facility], [place], [address], 07/07/2025 04:12:26 amylase, serum or plasma 2024 025 [facility], [place], [address], 07/07/2025 04:12:26 HbA1c (hemoglob in A1c), blood 2024 025 [facility], [address] [place] [address] [place], [address], 07/07/2025 04:12:26 CBC w/ auto diff 2024 025 [facility], [address] [place] [address] [place], [address], 07/07/2025 04:12:25 vitamin B12 + folate, serum or blood 2024 025 [facility], [address] [place] [address] [place], [address], 07/07/2025 04:12:26 mma (methylma lonic acid), serum 2024 025 [facility], [address] [place] [address] [place], [address], 07/07/2025 04:12:26 vitamin B12 + folate, serum or blood 2024 025 [email or web address], [address] [place] [address] [place], [address], 07/03/2025 22:34:21 mma (methylma lonic acid), serum 2024 025 [email or web address] [facility], [address] [place] [address] [place], [address], 07/03/2025 22:34:21 Referral dermatolo gist referral - has white plaque - ? cancerous lesion on left hand. 2024 025 [email or web address] Roro Ramirez MD, [address] [facility] [place], [address], 06/05/2025 10:35:54 Procedures None recorded. Surgeries None recorded. Imaging None recorded. Medication Orders None recorded. Patient TargetsNo targets recorded. 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 cancerous lesion on left hand. Referring Physician: Josette Kwon, Geriatric Medicine, Encounter Date: 02/18/2025 Results Created Date Observation Date Name Description Value Unit Range Abnormal Flag Note LastModifiedBy Organization Detail LastModifiedTime 03/24/2003/24/2025 XR, entir e spine No observ ation record ed. [address] [place], [address], 04/01/2025 20:21:10 04/12/20 25 12/28/2022 DEXA No observ ation record ed. [address] [place], [address], 04/16/2025 11:10:43 04/12/20 25 02/13/2025 DEXA No observ ation record ed. [address] [place], [address], 04/16/2025 11:11:43 04/12/20 25 05/09/2024 CT, brain , w/o contr ast No observ ation record ed. [address] [place], [address], 04/16/2025 14:43:40 04/28/20 25 01/06/2020 , [facility] ardio gram No observ ation record ed. [address] (Medical Records) [address] [place], [address], 04/28/2025 14:26:19 Result Notes None recorded. Problems Name Problem SNOMED Code Status Onset Date Resolution Date Notes Provider Name and Address Organization Details Recorded Time Hearing loss 67961949 Active 2024 Cyrus sabillon [place] - [facility] 10:28:54 Bilateral tinnitus 270730559939 2 Active 2024 Cyrus Stew ramandeep, [employer] 5 10:29:13 History of diverticu litis 393464029352 100 Active 2024 Cyrus Stew null, [employer] 10:29:36 Arthritis 7428619 Active 2024 Cyrus Stew null, [employer] 10:29:48 Senile osteoporo sis 47325690 Active 2024 Cyrus Stew null, [employer] 5 10:30:09 Atrial arrhythmi a 85379568 Active 2024 Cyrus Stew null, [employer] 10:30:31 Hyperchol esterolem ia 02614366 Active 2024 Cyrus Stew [employer], [employer] 5 10:30:42 Skin lesion 25332069 Active 2024 Josette Kwon MD [address], [place], [address], [employer] 14:04:30 Lichen sclerosus 757725198 Active 2024 Josette Kwon MD [address] , [place], [address], [employer] 5 14:04:31 History of fall 931360647 Active 2024 Josette Kwon MD [address], [place], [address], [employer] 5 14:23:00 Chronic low back pain 737361145 Active 2024 Josette Kwon MD [address] , [place], [address], [employer] 14:24:50 Seen by primary care physician 820948371723 9 Active 2024 Josette Kwon MD [address], [place], [address], [employer] 13:49:12 Active or passive immunizat ion Active 2024 Josette Kwon MD [address] [facility], [place], [address], [employer] 13:49:18 Advance care planning Active 2024 Josette Kwon MD [address] [facility], [place], [address], [employer] 13:49:29 Goal achieveme nt finding 057947683 Active 2024 Josette Kwon MD [address] [facility], [place], [address], [employer] 13:49:31 Cobalamin deficienc y 909680065 Active 2024 Josette Kwon MD [address] [place] [address],[facility], [place], [address], [employer] 20:34:39 Leukopeni a 22053784 Active 2024 Josette Kwon MD [address] [place] [address],[facility], [place], [address], [employer] 20:34:59 Patent foramen ovale 528952039 Active 2024 Josette Kwon MD [address] [address], [place], [address], [employer] 20:40:59 Gastroint estinal symptom 626050202 Active 2024 Josette Kwon MD [address] [facility], [place], [address], [employer] 20:41:01 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 Medical [...] ble Not Available Vitals Date Recorded Body weight Body mass index (BMI) Body height Oxygen saturation Heart rate Systolic And Diastolic Provider Name and Address Organization Details Last Updated DateTime 5 02601.7 9 g 20.7 kg/m2 152.4 cm 100 % 68 /min 104/60 mm[Hg] [facility] 5 13:13:31 Date Recorded Body height Oxygen saturation Heart rate Body mass index (BMI) Body weight Systolic And Diastolic Provider Name and Address Organization Details Last Updated DateTime 5 152.4 cm 95 % 74 /min 20.7 kg/m2 94213.7 9 g 104/60 mm[Hg] [facility] 5 13:56:09 Date Recorded Body height Heart rate Oxygen saturation Body mass index (BMI) Body weight Systolic And Diastolic Provider Name and Address Organization Details Last Updated DateTime 5 152.4 cm 63 /min 97 % 20.3 kg/m2 16291.5 3 g 102/60 mm[Hg] [facility] 5 14:22:10 Social History None recorded. Functional Status None recorded. Mental Status None recorded. Family History Relationship Description Onset Age of this Age Resolved Age Notes LastModified by Organization Details LastModified Time Father Family history of stroke 61 61 [email or web address] Not available 2024 10:43:10 Notes:Family History - Broth er: Living, resides in [place] Medical History Condition Response Coronary Artery Disease N Other N Gout N Blood Diseases N Kidney Stones N Hyperthyroidism N Blood Transfusion N Emphysema [...] Ear or Hearing Problems Y Hospitalizations Y Eating Disorder N Skin Problems N MRSA exposure N Constipation Y Urinary Problems Y Abdominal Pain N Tuberculosis N AIDS/HIV N Back Problems Y Asthma N Hepatitis N Pulmonary Embolism N Chronic Ear Infections N Chicken Pox Y Autism Spectrum Disorder (ASD) N Thrombophilias N Thyroid Disease N Breast Cancer N Lung Disease N Hypothyroidism N Defects or Inherited Disease N Developmental [...] N ADD/ADHD N Anemia N Heart Attack (NV) N Mental Illness N Diabetes N Ovarian Cancer N Bedwetting N Seizures/Epilepsy N Congestive Heart Failure (CHF) N Eczema N Abuse/Domestic Violence N Diverticulitis Y Dementia N Reflux/GERD N Heart Disease N Pre-Eclampsia N Hypertension N Osteoporosis Y Gynecological HistoryNo gynecological history recorded. Obstetrics History GPAL:G 0 P 0 0 0 0 Past Encounters Encounter ID Performer Location Encounter Start Date Encounter Closed Date Diagnosis/Indication Diagnosis SNOMED-CT Code Diagnosis ICD10 Code Diagnosis IMO Codes Diagnosis Note [id number] MD [facility] [address] [place] [address] 02/18/2025 12:42:17 02/18/2025 14:09:29 Seen by primary care physician [id number] 109 Z76.89 CPE: Specialist s:Dr. Paz, endocrinol Joanie Lopez, urogyNola mittal Pain [facility] - [facility]:BMI : 20.7Lipids :Diabetes: BP control: very well controlled AAA screen: - Hearing: [facility] and HearingDen osmel: [facility] SmilesVisi on: Dr Lowry, [facility] - maybe cataracts in a year. Cancer Scre[place]: [place] [facility] [place] N/[facility] - Diet & Exercise: walk the dogOsteopo rosis Screening: [place] [facility] [place] the r Health screening: Active or passive immunization 976607324 Z23 Due: COVID-19, Flu PneumoPCVS ummaryImmu nizationsR SV 07/24/2023 HistoryTda p 01/11/2017 HistoryPne umoPPV 07/13/2016 (H) HistoryFlu 07/13/2016 (H) 08/17/2017 05/08/2018 04/16/2019 04/17/2020 04/14/2021 04/23/2022 05/12/2023 04/23/2024 HistoryCOV ID-19 09/05/2020 10/03/2020 05/11/2021 11/01/2021 04/23/2022 05/05/2023 04/23/[address] 05/06/2012 07/16/2022 11/20/2022 History*(H ) = Historical , (NV) = Not Valid Advance care planning 71 6574692 Z71.89 Health Care Proxy: yes - Elizabeth Littlejohn , cousin - she will bring in a copyMOLST: noOther: - Goal achie vement finding [id number] Z72.89 Lifestyle Assessment Short Form:1. Overall level of health (0 - very poor - 10 excellent) 7 - back pain limits here. Sleep:2. Avg hours sleep: 63. How often felt tired: Not at all Weight Management :What do you think about your current weight?: want to gain a little Nutrition: 5. how often have you eaten fast food/sugar y drinks or packaged foods:? > 1/2 of days6. Daily servings of fruits&veg etables: 2-3 Exercise:7 . Frequency 5+ per week8. Minutes of moderate-s trenuous exercise per session: 30-49 minutes Purpose and connection /Mental health: (0 - best to 3- worst)9.a. purpose: 0b. support: 2c. little pleasure: 0d. feeling down, depressed, hopeless: 0e. feeling nervous/an xious: 0f. worryin Smoking/Galan bstance Use10. Nicotine: noHistory of? noFrequncy : Is there concern?: (0 no concern-5 high concern)11 . Alcohol: noFrequenc y: Is there concern?: (0 no concern-5 high concern)Hi story of? no12. Recreation al drugs: noFrequncy : Is there concern?: (0 no concern-5 high concern)Hi story of?13. Cannabis: noFrequncy : Is there concern?: (0 no concern-5 high concern)Hi story of? Motivation :14. Top three areas most motivated to change to improve overall currently level of health:1. Nutrition2 . Weight Management 3. Purpose and connection What motivates you to be healthier: I'd like to be able to keep doing things and being useful to myself and others. Atrial arrhythmia 461393 09 I49.8 3934 has history of [place] kat een by Dr Merrill knapp, [place], last summer, dismissed as stable after a few year f/u. Cardiovasc [facility] ssment: Patient has a history of a hole in the heart discovered on echocardio gram. Currently on metoprolol ER 25 mg and aspirin 81 mg. Blood pressure is reported as good. Total cholestero l is elevated at 290, but patient is not on lipid-lowe ring medication .Plan:- Continue metoprolol ER 25 mg- Continue aspirin 81 mg- Consider lipid panel to reassess cholestero l levels Hypercholesterolemia 136 90446 E78.00 61306 Chol 219, doesnt take meds. Senile osteoporosis 1804 0001 M81.0 41382812 Assessment : Patient has a history of osteoporos is and is currently on Fosamax for 2 years. Recent bone density test in January 2025 showed improvemen t in lumbar spine from -2.9 to -0.6. Total hip T-score improved from -3.5 in December 2022 to -3.3, and left femoral neck T-score improved from -2.8 to -2.6. Patient reports constipati on and digestive issues as side effects of Fosamax but is managing them.Plan: - Continue Fosamax (on it for two years)- Consider reassessme nt of osteoporos is treatment after 5 years of Fosamax therapyCou ld also consider Reclast, yearly infusion.- Maintain current calcium and vitamin D supplement ation- Encourage weight-emily ring exercises as tolerated- Follow up with Dr. Carlin for osteoporos is management - Bone Density Test (January 2025):- Lumbar spine: -0.6 (improved from -2.9)- Total hip: -3.3 (improved from -3.5 in December 2022)- Left femoral neck: -2.6 (improved from -2.8 in December 2022) Hearing loss 54914382 H9 1.90 96787885 Bilateral tinnitus 50579 93751 102 H93.13 035303 Hearing aides help History of diverticulitis 9277873833 82863 Z87.19 25078699 last 15 years Arthritis 1316905 M19.90 46874 has it in her hands and backuses tylenol as needed. Lichen sclerosus 4863038 01 L90.0 02266 Assessment : Patient has a history of lichen sclerosis and uses clobetasol ointment for treatment. The ointment form is preferred due to less systemic absorption , which is a concern given the patient's osteoporos is.Plan:- Continue clobetasol ointmen- Will examine next visit - consider re-referra l to Urogyn. Skin lesion 89255218 L98 .9 60937 Suspected actinic keratosisA ssessment: Patient reports a recurrent lesion on the left hand that appears in summer and resolves. Clinical suspicion for actinic keratosis based on descriptio n and presentati on.Plan:- Refer to [facility] for evaluation and management will put in referral to [facility] History of fall 39071380 9 Z91.81 0843572 Fall riskAssess ment: Patient reports two recent falls, one in the shower and one while walking the dog. 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 MRI at [facility] revealed L5 nerve root impingemen t, causing pain in left buttock and radiating down the leg. Pain is exacerbate d by sitting but not by walking. Patient has undergone pain management at [facility] and uses Tylenol for pain control, typically 500 mg once or twice daily.Plan :- Continue Tylenol up to 3000 mg daily as needed for pain- Consider prescripti on for lidocaine patch or diclofenac gel- Refer to physical therapy for ongoing management - Knows to limit naproxen- Continue with acupunctur e [id number] MD [facility] [address] [facility] [address] [place] [address] 04/01/2025 13:30:41 04/01/2025 14:49:45 Active or passive immunization 953089138 Z23 MIIS ID: [id number] - accessed 04.01.25 Due: COVID-19, Flu PneumoPCV SummaryImm unizations RSV 07/24/2023 HistoryTda p 01/11/2017 HistoryPne umoPPV 07/13/2016 (H) HistoryFlu 07/13/2016 (H) 08/17/2017 05/08/2018 04/16/2019 04/17/2020 04/14/2021 04/23/2022 05/12/2023 04/23/2024 HistoryCOV ID-19 09/05/2020 10/03/2020 05/11/2021 11/01/2021 04/23/2022 05/05/2023 04/23/[address] 05/06/2012 07/16/2022 11/20/2022 History*(H ) = Historical , (NV) = Not Valid Seen by pr imary care physician [id number] 109 Z76.89 CPE: Specialist s:Dr. Paz, endocrinol ogistDr Lopez, urogynHoly kyrie Pain Mgmt - Labs:5.27. 25CBC: wbc 4.5, hgb 12.9, hct 39.3, MCV [...] pg/mL, Folate: 13.9 ng/mL, TSH: 1.41 mIU/L [facility] ocardiogra m: Intra-atri al septal aneurysm with PFO, Normal Dopplers, Ejection fraction: 60-65%, Normal diastolic function (11/09/2017 )BMI: 20.7Lipids : Total cholestero l: 219 mg/dL, LDL: 143 mg/dL, HDL: 67 mg/dL, Triglyceri richard: 47 mg/dL,Diab etes: Will check [facility] with next lab check.BP control: very well controlled AAA screen: - Hearing: [facility] and HearingDen osmel: [facility] SmilesVisi on: Dr Lowry, [facility] - maybe cataracts in a year. Cancer Scre[place]: [place] [facility] [place] [facility] [place]: N/[place] [facility] [place] [place] Colonoscop y: Normal (11/06/2018 )Lung: - Diet & Exercise: walks the dogOsteopo rosis Screening: [place] [facility] [place] [place] - osteoporos isOther Health screening: Records from [facility] reviewed. There were no available pain management , cardiology notes Preventive CareAssess ment: Patient is due for several vaccinatio ns and routine screenings . Last colonoscop y was normal on November 06, 2018. Blood pressure was 118/70 on June 24, 2024. Recent labs show elevated total cholestero l (219) and LDL (143), but patient is not currently on cholestero l medication .Plan:- Schedule flu and COVID vaccines together- Consider PCV vaccine after flu and COVID vaccines- Schedule mammogram in June- Discuss cholestero l management at next visit- Follow up in 3 months (June) for 30-minute appointmen t Advance care planning 71 9242571 Z71.89 Health Care Proxy: yes - Elizabeth Littlejohn , cousin - she will bring in a copyMOLST: noOther: - Goal achie vement finding [id number] Z72.89 Lifestyle Assessment Short Form:1. Overall level of health (0 - very poor - 10 excellent) 7 - back pain limits here. Sleep:2. Avg hours sleep: 63. How often felt tired: Not at all Weight Management :What do you think about your current weight?: want to gain a little Nutrition: 5. how often have you eaten fast food/sugar y drinks or packaged foods:? > 1/2 of days6. Daily servings of fruits&veg etables: 2-3 Exercise:7 . Frequency 5+ per week8. Minutes of moderate-s trenuous exercise per session: 30-49 minutes Purpose and connection /Mental health: (0 - best to 3- worst)9.a. purpose: 0b. support: 2c. little pleasure: 0d. feeling down, depressed, hopeless: 0e. feeling nervous/an xious: 0f. worryin Smoking/Galan bstance Use10. Nicotine: noHistory of? noFrequncy : Is there concern?: (0 no concern-5 high concern)11 . Alcohol: noFrequenc y: Is there concern?: (0 no concern-5 high concern)Hi story of? no12. Recreation al drugs: noFrequncy : Is there concern?: (0 no concern-5 high concern)Hi story of?13. Cannabis: noFrequncy : Is there concern?: (0 no concern-5 high concern)Hi story of? Motivation :14. Top three areas most motivated to change to improve overall currently level of health:1. Nutrition2 . Weight Management 3. Purpose and connection What motivates you to be healthier: I'd like to be able to keep doing things and being useful to myself and others. Atrial arrhythmia 633036 09 I49.8 3934 has history of [place] kat een by Dr Merrill knapp, Jose Armando, last summer, dismissed as stable after a few year f/u.Tiana sanchez on metoprolol ER 25 mg and aspirin 81 mg. Blood pressure is reported as good.Plan: - Continue metoprolol ER 25 mg- Continue aspirin 81 mg Hypercholesterolemia 136 95486 E78.00 82288 Total cholestero l: 219 mg/dL, LDL: 143 mg/dL, HDL: 67 mg/dL, Triglyceri richard: 47 mg/dL,Has not taken medication s and has been reluctant to do so.Overall no sig risk factors but elevated chol/LDLCa n discuss further next visit Senile osteoporosis 1804 0001 M81.0 47783362 Assessment : Patient has a history of [...] 2022)Vitam in D25: 96 ng/mL (11/2024) Plan:- Continue Fosamax (on it for two years)- Consider reassessme nt of osteoporos is treatment after 5 years of Fosamax therapy- Could also consider Reclast, yearly infusion.- Maintain current calcium and continue vitamin D supplement ation - was taking more than recommende d and cut down. Will repeat level in a few months.- consider Vitamin K- Encourage weight-emily ring exercises as tolerated- Follow up with Dr. Carlin for osteoporos is management Hearing loss 08442662 H9 1.90 83325201 Continue with hearing aides Bilateral tinnitus 12988 71342 102 H93.13 855170 Hearing aides help Lichen sclerosus 6952760 01 L90.0 05673 Assessment : Patient has a history of lichen sclerosis and uses clobetasol ointment for treatment. The ointment form is preferred due to less systemic absorption , which is a concern given the patient's osteoporos is.Plan:- Continue clobetasol ointmen- Gisselle will call Dr John Mckeon for an appt - if not soon, will ensure we examine for baseline Skin lesion 80850070 L98 .9 17818 Suspected actinic keratosisA ssessment: Patient reports a recurrent lesion on the left hand that appears in summer and resolves. Clinical suspicion for actinic keratosis based on descriptio n and presentati on.Plan:- Refer to [facility] for evaluation and management will put in referral to [facility] Chronic low back pain 27 4052938 M54.42 G89.29 32201338 Assessment : Patient reports chronic back pain related to scoliosis, with ribs diving into hip. MRI at [facility] revealed L5 nerve root impingemen t, causing pain in left buttock and radiating down the leg. Pain is exacerbate d by sitting but not by walking. Patient has undergone pain management at [facility] and uses Tylenol for pain control, typically 500 mg once or twice daily. Since last visit, X-ray of the back was obtained. Patient is [facility] campus) on for further evaluation and management . Dr. Xie has mentioned techniques like breathing and stretching for management .Plan:- Follow up with Dr. Xie- Consider implementi ng breathing and stretching techniques as recommende d by Dr. 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 819 [id number] Patient has a history of chronic leukopenia which per Gisselle, has been worked up by hematology and thought to be idiopathic and overall stable. Recent labs from December 10, 2024, show normal renal and liver function tests. Cobalamin deficiency 190 [id number] E53.8 158460 B12 level was 235 - we would like this to be greater than 400.Plan:- Start sublingual B12 supplement 1000 mcg daily- Recheck B12 levels in 3-6 months Gastrointe stinal symptom [id number] R19.8 481234 Assessment : Patient reports experienci ng gas, constipati on, and loose stools. Patient has started eating three prunes daily and drinking a cup of coffee daily to manage symptoms. Patient also reports eating a lot of broccoli which contribute s to gas. Sometimes has bowel movements up to four times a day.Plan:- Continue current dietary modificati ons (prunes, coffee) as tolerated- Monitor effect of broccolini consumptio n on gas symptoms- [facility] in [place] for further dietary guidance if symptoms persist Patent foramen ovale 204 [id number] Q21.12 689405 Assessment : Patient has a known PFO, confirmed by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
== END 2025-07-08 14:43 ==
LOC: HO.MAMMO 14:42
PROVIDERS: PCP Internal Medicine Geriatric Medicine; Visit Provider Internal Medicine Geriatric Medicine
DX: Z12.31 Encounter for screening mammogram for malignant neoplasm of breast (principal)
CPT/HCPCS: 77063; 77067

== ENCOUNTER → 2025-07-08 15:00 | Outpatient (BNV) | payer MEDICARE, SELFPAY | PROVIDERS: PCP Internal Medicine Geriatric Medicine; Visit Provider Internal Medicine | DX: Z12.31 Encounter for screening mammogram for malignant neoplasm of breast (principal) | CPT/HCPCS: 77063; 77067 ==